=== PATIENT | female | born 1980 | race Hispanic/Latino ===

== ENCOUNTER 2022-08-21 03:02 | Inpatient (IN) | payer OTHER, SELFPAY ==
[2022-08-21] VITALS (17 sets, daily range): BP systolic 99–141; BP diastolic 59–123; PULSE 71–99; RESP 16–18; TEMP 36.1–36.9; O2SAT 98–99; BMI 32.5
--- NOTE | 2022-08-21 03:54 | WPDOBADMIT ---
Obstetrics - Admit Note Admission Note: record reviewed. No pertinent additions to the history and/or any subsequent changes in the physical findings that are not consistent with the expected course of the were found. pt arrived in labor, pt has a hx of 5 vaginal deliveries, last delivery section, pt requesting TOLAC today, discussed risks and benefits during office visits, consent signed. HX GDMA-1 and IUGR, discussed with DR. Meredith Additions to the history and/or subsequent changes in the physical findings follow. None.
[2022-08-21 04:09] LABS: Basophils Percent Auto 0.4 % (0.2-1.2); Eosinophils Percent Auto 0.4 % (0-4.4); Hematocrit 41.3 % (37.0-47.0); Hemoglobin 14.1 g/dL (12.0-15.0); Immature Granulocyte Absolute 0.03 K/mm3 (0.00-0.031); Immature Granulocyte Percent A 0.4 % (0-0.5); Lymphocytes Absolute Auto 1.18 K/mm3 (0.9-3.2); Lymphocytes Percent Auto 14.4 % (18.3-44.2); Mean Corpuscular HGB Conc 34.1 g/dl (32-36); Mean Corpuscular Hemoglobin 31.1 pg (26-34); Mean Corpuscular Volume 91.2 fl (80-100); Mean Platelet Volume 10.3 fl (7.4-10.4); Monocytes Absolute Auto 0.5 K/mm3 (0.1-0.6); Monocytes Percent Auto 5.9 % (2.6-8.5); Neutrophils Absolute Auto 6.4 K/mm3 (1.3-6.7); Neutrophils Percent Auto 78.5 % (45.5-73.1); Platelet Count Result 216 k/mm3 (150-375); Red Blood Count 4.53 M/mm3 (4.2-5.4); Red Cell Distribution Width 12.5 % (11.5-14.5); White Blood Count 8.2 K/mm3 (4.5-10.0)
[2022-08-21 04:13] LABS: Glucose Point of Care 101 mg/dl (65-105)
[2022-08-21] MEDS: OXYTOCIN 30 UNITS/NS 500 ML 30 UNITS/500 ML BAG 999 UNITS IV CONT (04:40)
--- NOTE | 2022-08-21 04:50 | PM.OBPRVD ---
OB - Delivery Note Procedure Delivery date: 08/21/22 Procedure: Vaginal delivery Operation Date: 08/28/22 07:30 <No data on this case meets the specified criteria> Events: Gestational Diabetes and Intrauterine Growth Restriction (IUGR) Delivery monitor: External FHT and External Uterine Route of delivery: Episiotomy description: None Laceration Description: Superficial Specimen: Yes Quantitative Blood Loss (ml): 70 Anesthesia type: None Disposition: Floor [place]yard Baby Date of : 08/21/22 Time of : 04:38 Weeks of gestation at delivery: 38 gender: Male presentation: vertex position: Left Occiput Anterior Placenta delivery description: Spontaneous and Other Cord Vessel Description: 3 Vessels and True Knot score one minute: 8 score five minutes: 9 Narrative: mother and baby skin to skin in stable condition
--- NOTE | 2022-08-21 04:59 | LDADM ---
This patient, Debbie Villafuerte, was admitted to Labor/Delivery/Recovery 102 on 08/21/22 at 03:02. Plans for labor, pain management and were discussed with patient. Patient/family oriented to hospital policies and general routines including ID bracelet, bed and alarms, visiting hours, pain management, procedures, bathroom and other care routines, personal items, smoking policy, room service/diet and guest tray routines, security routines, and visiting hours. Patient/Family are encouraged to report perceived risks to care and to ask questions if they do not understand what they are told or what they should do. See OBIX for further documentation.
--- NOTE | 2022-08-21 07:45 | PC.NURSE ---
Patient transferred to post room #282 via wheel chair. Support person not present at this time. Oriented to unit, room, information board, rooming in, admission packet and security measures. Patient verbalizes understanding. Pt was offered to use the translation device at this time, it was not needed. A Amharic version of the admission packet was given.
[2022-08-21 08:10] LABS: HIV 1/2 Ab P24 Ag Result Negative (Negative)
[2022-08-21 13:48] LABS: Rapid Plasma Reagin Non-Reactive (NonReactive)
--- NOTE | 2022-08-21 14:08 | PC.NURSE ---
[id number] Scientific Writer #[id number] Heather assisted with introductions, then consulted with patient to assess needs related to . 41 Y.O. Mother led the conversation with her?plans to feed?her and the?experience so far. Resources provided for inpatient and outpatient services using a resource guide and mom/baby guide. Mother voiced understanding of information and is willing to have a feeding plan discussion. Mother plans to breastfeed but has put infant to breast twice since delivery and bottle fed most of the time. Pain was denied with the two latches that mother has done. Mother shared that she is getting milk out of the right breast but not the left breast. She was concerned about her milk because she was not able to breastfeed her now two year old because the milk didn't come in . Reviewed milk production and offered to assist mother with pumping for a good milk supply. Mother wants to initiate pumping. Breast pump provided due to ineffective . Instructions given on cleaning, care, usage, that there should be no pain, pumping schedule for milk production, collection, and storage of human milk. Mother is encouraged to record pumping schedule on the feeding sheet. Patient was assessed for correct placement, flange size, to pump for comfort and nipple stretching/stimulation for adequate milk production every 3 hours (8 times in 24 hours) 1-2 times at night if infant is not 2-3 hours. Encouraged mother that if there is no milk pumped out to continue to consistently pump to stimulate milk production. Mother voiced understanding of the education shared along with additional Nepali resource information. Scientific Writer #[id number] assisted with education and information. Reported to the primary RN.
[2022-08-22 05:17] LABS: Hemoglobin 12.4 g/dL (12.0-15.0)
--- NOTE | 2022-08-22 07:23 | P.PNOB_ITS ---
OB - PN: Subj Subjective Date/time seen: 08/22/22 07:23 Patient comments: no complaints and pain well controlled baby status: doing well [place] feeding status: breast and bottle feeding Narrative: would like DC home today. declines circumcision. OB - PN: Obj Data Labs CBC & Chem 7: 08/22/22 04:21 Labs: Laboratory Results - last 24 hr 08/21/22 08/21/22 08/22/22 03:45 03:54 04:21 Hgb 12.4 Hct 37.0 RPR Non-reactive HIV 1&2 Ab/P24 Ag 4thGn Negative OB - PN A/P Plan day: 1 Plan: routine care and discharge home Time Spent With Patient Time: Total time spent is greater than 50% in coordination of care (as documented) at patient's floor/unit and/or counseling patient: Time with patient: less than 15 minutes Exam Narrative: NAD abdomen soft, nontender, fundus firm below the umbilicus Extremities nontender, 1+ edema
--- NOTE | 2022-08-22 07:25 | P.DS_ITS ---
DS: Admitting Diagnosis Discharge Date 08/22/22 Admitting Diagnosis labor, prior CS DS: Discharge Diagnosis Discharge Diagnosis (1) (vaginal after ): Code(s): O34.219 - Maternal care for unspecified type scar from previous delivery Status: Acute OB - DS: Summary Hospital Course Hospital Course: Debbie was admitted in labor at term. She had a prior CS. She proceeded to have an uncomplicated vaginal after and an uncomplicated postp artum course and was discharged home in stable condition on PPD 1. OB Procedures : Ultrasound OB Procedures Intrapartum: OB Procedures: : None Peripartum Data Infant Delivery Method: Natural Vaginal Procedures: Procedures Operation Date: 08/28/22 07:30 <No data on this case meets the specified criteria> complications: none Status at Discharge Functional status at discharge: independent ambulation Time Spent with Patient Time attestation: Total time spent providing and/or coordinating discharge services: Exam Narrative: NAD abdomen soft, appropriately tender Ext non tender, 1+ edema DS: Data Data Completed and Pending Pending studies at discharge: Pending at discharge 08/21/22 04:40 Surgical [PTH] Routine Labs on day of discharge: Labs from last 24 hours 08/22/22 08/21/22 08/21/22 04:21 03:54 03:45 Hgb 12.4 Hct 37.0 RPR Non-reactive HIV 1&2 Ab/P24 Ag 4thGn Negative Discharge Plan Discharge Attending physician on discharge: Leslie Kaur Discharging Clinician: Leslie Kaur Anticipated Discharge Date/Time: 08/22/22 07:24 Patient Disposition: Home, Self-Care Activity: pelvic rest Diet: regular Patient Instructions: Antibiotic Form Patient Language: Danish Stand Alone Forms: General Discharge Information Follow-up/Referrals: Leslie Kaur MD [Physician] - 4 Weeks Discharge Medications: Continued levothyroxine 125 mcg tablet 125 mcg PO DAILY ergocalciferol (vitamin D2) 1,250 mcg (50,000 unit) capsule 1,250 mcg PO WEEKLY PNV cmb#95-ferrous fumarate-FA [] 28 mg iron- 800 mcg tablet 1 tablet PO DAILY Date of admission: 08/21/22 03:02 Primary Care Provider: Fabricio Guadarrama Admitting Provider: Leslie Kaur Attending physician on admission: Leslie Kaur Condition: Stable
[2022-08-22 08:00] VITALS: PULSE 72; RESP 16; O2SAT 100
[2022-08-22 08:05] VITALS: BP 129/82; PULSE 72; RESP 16; TEMP 36.3; O2SAT 100
[2022-08-22] MEDS: DOCUSATE SODIUM 100 MG CAPSULE PO (09:08)
[2022-08-22] MEDS: MULTIVIT/MIN/PREN/FOL AC/IRON TABLET 1 TAB PO (09:09)
== END 2022-08-22 15:30 | disposition home or self-care (01) | DRG 560 ==
LOC: ANHLDR 03:46 → ANHOB2 07:47
PROVIDERS: Advanced Practice Midwife; Admitting Provider Obstetrics & Gynecology; PCP Emergency Medicine; Visit Provider Obstetrics & Gynecology
DX: O24.429 Gestational diabetes mellitus in childbirth, unspecified control (principal); O36.5930 Maternal care for other known or suspected poor fetal growth, third trimester, not applicable or unspecified; O34.211 Maternal care for low transverse scar from previous cesarean delivery; Z37.0 Single live birth; Z3A.38 38 weeks gestation of pregnancy; O69.2XX0 Labor and delivery complicated by other cord entanglement, with compression, not applicable or unspecified; O62.3 Precipitate labor
CPT/HCPCS: 36415; 82948; 84112; 85014; 85018; 85025; 86592; 86703; 86850; 86900; 86901; 88307; A9270; G0432; J2590

== ENCOUNTER 2022-10-05 01:49 | Day surgery (SDC) | payer OTHER, SELFPAY ==
[2022-10-01 10:33] VITALS: BMI 29.3
--- NOTE | 2022-10-01 10:34 | PC.NURSE ---
PRE-OP INSTRUCTIONS, PLEASE READ CAREFULLY Report to the Outpatient Waiting Room, entrance under the green pavilion located off [facility], at time _0600_ on date _10/05/22_. Planned Procedure Time: _0730_. Time changes happen often and if your time is changed the preop area will call you the afternoon before. - You and your visitor will be asked to self-screen and do not enter if you have any COVID symptoms. - Only one visitor is requested with a max of two and NO children visitors are allowed at this time. - The patient visitor may be requested to leave or wait in car when not with patient due to distancing restrictions. - A mask is optional within the hospital. Patients may have clear liquids (water, carbonated beverages, clear teas, apple juice) until 3 hours prior to surgery (0430 AM) with a maximum of 20 ounces. - No food from midnight until time of surgery Take the following medications with a SIP of water the morning of surgery: _LEVOTHYROXINE_ Medications to discontinue per physician _VITAMINS 3 DAYS PRIOR TO SURGERY, Date to take last dose 10/01/22_ Please no make-up, nail angolan, hairspray, perfume, deodorant, or body powder the day of surgery. No jewelry (including any body piercings) or valuables the day of surgery, leave them at home. Please take a shower or bath the night before, or the morning of, surgery with an antibacterial soap. Wear comfortable, loose fitting clothing. - Jewelry must be removed prior to entering the operating room. Rings and piercings that are not removed may be cut off. - The hospital will not accept responsibility for valuables. - Please leave all valuables, including medications, at home the day of surgery. If you are going home after surgery, a licensed cab driver must drive you home. - NO public transportation without another adult if you receive anesthesia. - We recommend that an adult stay with you for 24 hours following discharge. - We also recommend that you do not drive, make important decision, drink alcoholic beverages, or take any drugs that were not prescribed by your health care provider for at least 24 hours after your discharge time. Follow any additional instructions given to you from your surgeon. If you or anyone in your household have experienced Covid symptoms in the past week, please notify your surgeon or the nurse liaison at the phone number below for possible testing. Instructions given to _PATIENT_and asked if any additional questions and then verbalized understanding. Patient advised to call surgeon office or pre surgery nurse liaison [phone] if any additional questions.
[2022-10-05] VITALS (8 sets, daily range): BP systolic 106–142; BP diastolic 41–89; PULSE 72–95; RESP 11–19; TEMP 36.5; O2SAT 100
--- NOTE | 2022-10-05 06:56 | PM.IMHP ---
H&P: HPI History of Present Illness Date/Time: 10/05/22 06:56 Chief Complaint: sterilization, left ovarian cyst Narrative: Debbie is a here for [facility] bilateral salpingectomy for sterilization. IN addition, during her recent she had a 6cm simple left ovarian cyst. She also has hypothyroidism. Review of Systems Review of Systems: All systems reviewed & are unremarkable except as noted in HPI and below [facility] Social History Social History Smoking status: Never smoker Second hand tobacco smoke exposure: No Alcohol intake: never Substance use: never Substance use type: does not use Lack of Transportation: No Lack of Food: Never True Current Housing: I Have Housing Concerned About Future Housing: No Difficulty Paying Gas/Electric Bills: No Difficulty Paying for Meds: No Currently Unemployed: No Education: High School Diploma/GED Difficulty w/ Childcare or Family Care: No Living arrangements: with family Spiritual care concerns: No Meds Home Medications and Allergies Home Medications Medication Instructions Recorded Confirmed Type ergocalciferol (vitamin D2) 1,250 1,250 mcg PO WEEKLY 08/21/22 10/05/22 History mcg (50,000 unit) capsule levothyroxine 125 mcg tablet 125 mcg PO DAILY 08/21/22 10/05/22 History vit no.95-ferrous 1 tablet PO DAILY 08/21/22 10/05/22 History fumarate 28 mg-folic acid 800 mcg tablet () Allergies Allergy/AdvReac Type Severity Reaction Status Date / Time No Known Allergies Allergy Verified 10/05/22 06:35 Vital Signs Vital Signs - 24 hr 10/05/22 06:27 Temperature 97.7 F Pulse Rate 84 Respiratory Rate 16 Blood Pressure 131/74 Pulse Oximetry 100 Oxygen Delivery Room Air Exam Const: General: no acute distress Resp: Effort & Inspection: normal respiratory effort Auscultation: clear to auscultation bilaterally Cardio: Rate: regular rate Rhythm: regular rhythm GI: GI Palp: Yes Soft to palpation Extrem: General: normal to inspection Assessment and Plan Assessment and plan (1) Admission for sterilization: Code(s): Z30.2 - Encounter for sterilization Status: Acute (2) Left ovarian cyst: Code(s): N83.202 - Unspecified ovarian cyst, left side Status: Acute Plan Disucssed risks, benefits, and alternatives to procedure with pt in office with an environmental health sanitarian. Questions answered. Will proceed with [facility] bilateral salpingectomy and possible left ovarian cystectomy or drainage of left ovarian cyst if it is still present. ancef preop.
[2022-10-05] MEDS: LACTATED RINGERS 1,000 ML 30 ML IV CONT ×2 (07:00→09:07)
[2022-10-05] MEDS: ACETAMINOPHEN 500 MG TABLET 1000 MG PO (07:10)
[2022-10-05] MEDS: KETOROLAC 15 MG/ML VIAL (*BKC) IV PUSH (07:12)
--- NOTE | 2022-10-05 07:18 | P.PNAN_ITS ---
Anes - Initial Pre Proc Eval Procedure: Operation Date: 10/05/22 07:30 Proposed Procedures p Laparoscopic Bilateral Salpingectomy, Possible Laparoscopic Left Ovarian Cystectomy - Leslie Kaur MD Date/Time: 10/05/22 07:18 Surgeon: Leslie Kaur MD Pre Op Diagnosis: sterilization, left ovarian cyst Patient Data Age: 41 Gender: F Height: 1.65 m Weight: 78.6 kg Last Vital Signs Temp 36.5 C 10/05/22 06:27 Pulse 84 10/05/22 06:27 Resp 16 10/05/22 06:27 BP 131/74 10/05/22 06:27 Pulse Ox 100 10/05/22 06:27 O2 Del Method Room Air 10/05/22 06:27 Allergies Allergy/AdvReac Type Severity Reaction Status Date / Time No Known Allergies Allergy Verified 10/05/22 06:35 Home Medications Medication Instructions Recorded Confirmed Type ergocalciferol (vitamin D2) 1,250 1,250 mcg PO WEEKLY 08/21/22 10/05/22 History mcg (50,000 unit) capsule levothyroxine 125 mcg tablet 125 mcg PO DAILY 08/21/22 10/05/22 History vit no.95-ferrous 1 tablet PO DAILY 08/21/22 10/05/22 History fumarate 28 mg-folic acid 800 mcg tablet () Patient hx anesthesia problems: none Family hx anesthesia problems: none Results Review: All pre-operative results and documents have been reviewed as part of the pre- operative evaluation. PENDING SALE TO [facility] Past Medical History Medical History (Updated 10/05/22 @ 07:18 by Favio Pollock MD) Hypothyroidism Overweight Social History Social History Smoking status: Never smoker Second hand tobacco smoke exposure: No Alcohol intake: never Substance use: never Substance use type: does not use Lack of Transportation: No Lack of Food: Never True Current Housing: I Have Housing Concerned About Future Housing: No Difficulty Paying Gas/Electric Bills: No Difficulty Paying for Meds: No Currently Unemployed: No Education: High School Diploma/GED Difficulty w/ Childcare or Family Care: No Living arrangements: with family Spiritual care concerns: No Anes - Eval Final PreProcedure Day of Procedure 10/05/22 07:18 Patient weight: overweight Heart: regular rate and rhythm Lungs: clear to auscultation Airway: Mallampati scale class II Neurological: alert and oriented Last oral intake: >/= 8 hours ASA classification: II Emergent: no Anesthetic plan: proceed Anesthesia type and monitoring: general ETT and standard monitoring Results Review: All pre-operative results and documents have been reviewed as part of the pre- operative evaluation. Informed Consent: The patient's anesthetic plan and its attendant risks and benefits were discussed with the patient/family/POA. Questions were solicited and answers provided to the satisfaction of the patient/family/POA.
--- NOTE | 2022-10-05 07:25 | WPDHPUPDATE1 ---
History and Physical Update Update Date/Time: 10/05/22 07:25 History and Physical has been reviewed, including an updated exam of the patient. There are NO changes in the patient's condition. Risks, benefits, and alternatives have been discussed and questions answered. Patient agrees to proceed with procedure.
[2022-10-05] MEDS: ceFAZolin 2 GM/D5W 50 ML 2 GM/50 ML BAG IVPB (07:30)
[2022-10-05] MEDS: BUPIVACAINE/EPINEPHRINE 0.5% 10 ML VIAL INFILTRATE (08:27)
--- NOTE | 2022-10-05 08:54 | W.PM.PROC2 ---
Procedure Note - Detailed Date of Procedure 10/05/22 Pre-op Diagnosis sterilization, left ovarian cyst Post-op Diagnosis Other (no left ovarian cyst) Procedure Performed [facility] [place] sal[place]ectomy Surgeon Leslie Kaur MD Anesthesia General Indications desires permanent sterilization Findings normal tubes and ovaries bilaterally. no left ovarian cyst seen. Description of Procedure The patient was taken to the OR and placed in dorthal lithotomy in [facility]. She received general anesthesia. A speculum was placed and the cervix grasped with a single tooth tenaculum and an acorn uterine manipulator placed easily. A hernandez catheter had previously been placed. She had received preoperative antibiotics. A 5mm subumbilical skin incision was made and using direct visualization, the trocar was inserted intraperitoneally. The abdomen was insufflated and the pelvis inspected with the above findings. Bilateral 5mm incisions were made and trocars were placed under direct visualization. The right tube was grasped and elevated and using the Ligasure device, the tube was sequentially cauterized and ligated and removed through the trocar and sent to pathology. Similarly, on the left, the tube was removed using the Ligasure device. Hemostasis was noted from both surgical sites, but blood was accumulating in the cul de sac. It was suctioned out and we were able to see that the bleeding was coming from the posterior uterus. The uterus was anteverted as much as possible. It was boggy feeling. A bleeding injury in the serosa was noted, likely from elevating the uterus with a blunt grasper. It was cauterized with the ligasure and hemostasis was noted. The upper abdomen was inspected and noted to be normal. The trocars were removed and the Co2 was removed from the abdomen. The skin was closed with 4-0 vicryl and steri strips. The patient tolerated the procedure well and was taken to the recovery room in stable condition. Estimated Blood Loss 150 Drains No Packing No Pathology Yes Complications No immediate complications Condition Stable Disposition Same day
== END 2022-10-05 10:50 | disposition home or self-care (01) ==
PROVIDERS: PCP Emergency Medicine; Visit Provider Obstetrics & Gynecology
PROC: (CPT 49320; principal; 2022-10-05 07:30)
DX: Z30.2 Encounter for sterilization (principal); N83.202 Unspecified ovarian cyst, left side; N83.8 Other noninflammatory disorders of ovary, fallopian tube and broad ligament
CPT/HCPCS: 58661; 88302; A9270; J0690; J1100; J1885; J2250; J2405; J2704; J2710; J3010; J7030; J7120

== ENCOUNTER 2023-04-16 14:44 | Emergency (ER) | payer OTHER, SELFPAY ==
[2023-04-16 14:48] VITALS: BP 145/79; PULSE 83; RESP 16; TEMP 37; O2SAT 100
[2023-04-16 15:20] LABS: Basophils Percent Auto 0.6 % (0.2-1.2); Eosinophils Absolute Auto 0.2 K/mm3 (0-0.3); Eosinophils Percent Auto 4.2 % (0-4.4); Hematocrit 39.3 % (37.0-47.0); Immature Granulocyte Absolute 0.01 K/mm3 (0.00-0.031); Immature Granulocyte Percent A 0.2 % (0-0.5); Lymphocytes Percent Auto 37.7 % (18.3-44.2); Mean Corpuscular HGB Conc 33.1 g/dl (32-36); Mean Corpuscular Hemoglobin 30.1 pg (26-34); Mean Platelet Volume 9.4 fl (7.4-10.4); Monocytes Absolute Auto 0.4 K/mm3 (0.1-0.6); Monocytes Percent Auto 8.3 % (2.6-8.5); Neutrophils Absolute Auto 2.5 K/mm3 (1.3-6.7); Platelet Count Result 309 k/mm3 (150-375); Red Blood Count 4.32 M/mm3 (4.2-5.4); Red Cell Distribution Width 11.6 % (11.5-14.5)
[2023-04-16 16:30] LABS: INR 0.9; Prothrombin Time 12.3 Seconds (11.1-14.7)
[2023-04-16 16:31] LABS: Partial Thromboplastin Time 26.3 SECONDS (22.3-36.8)
--- NOTE | 2023-04-16 16:56 | ED.FEMALEGU ---
HPI - Female Genitourinary General Chief complaint: Vaginal Bleeding Stated complaint: vaginal bleeding Time Seen by Provider: 04/16/23 15:37 History of Present Illness HPI Narrative: Patient is a 42-year-old female presenting with vaginal bleeding. History was obtained via car stereo installer. Patient states that she had a procedure done in September to prevent her from having further children. Per chart review, it appears she had a bilateral salpingectomy but she continues to have her ovaries. States that since that time she has been having a lot of vaginal bleeding. States that she will bleed heavily for 15 days/month. States that she sometimes has to put diapers down in her bed because she leaks through. She has not followed up with her LICENSED NURSING ASSISTANT since her last postop check. She denies abdominal pain, nausea or vomiting, diarrhea, chest pain, shortness of breath, syncope, leg swelling. Related Data Home Medications Medication Instructions Recorded Confirmed ergocalciferol (vitamin D2) 1,250 1,250 mcg PO WEEKLY 08/21/22 10/05/22 mcg (50,000 unit) capsule levothyroxine 125 mcg tablet 125 mcg PO DAILY 08/21/22 10/05/22 vit no.95-ferrous 1 tablet PO DAILY 08/21/22 10/05/22 fumarate 28 mg-folic acid 800 mcg tablet () Allergies Allergy/AdvReac Type Severity Reaction Status Date / Time No Known Allergies Allergy Verified 04/16/23 15:07 Review of Systems Review of Systems: All systems reviewed & are unremarkable except as noted in HPI and below PMFSH Past Medical History Medical History Hypothyroidism Overweight Social History Social History Smoking status: Never smoker Second hand tobacco smoke exposure: No Alcohol intake: never Substance use: never Substance use type: does not use Lack of Transportation: No Lack of Food: Never True Current Housing: I Have Housing Concerned About Future Housing: No Difficulty Paying Gas/Electric Bills: No Difficulty Paying for Meds: No Currently Unemployed: No Education: High School Diploma/GED Difficulty w/ Childcare or Family Care: No Living arrangements: with family Spiritual care concerns: No Exam Narrative: GENERAL: Well-appearing, well-nourished, and in no acute distress. HEAD: Normocephalic, atraumatic. EYES: PERRLA and EOMI. ENT: Nares clear, no rhinorrhea or epistaxis. Mucous membranes moist. NECK: Supple. CHEST: No respiratory distress. HEART: Regular rate and rhythm. ABDOMEN: Soft, nontender, nondistended EXTREMITIES: Normal range of motion. No edema. SKIN: Warm, dry, no rash. NEURO: No focal deficits. Alert and oriented x3. PSYCH: Normal mood and affect. Course Vital Signs Vital signs: Vital Signs Temperature 98.6 F 04/16/23 14:48 Pulse Rate 83 04/16/23 14:48 Respiratory Rate 16 04/16/23 14:48 Blood Pressure 145/79 H 04/16/23 14:48 Pulse Oximetry 100 04/16/23 14:48 Oxygen Delivery Room Air 04/16/23 14:48 Temperature 98.6 F 04/16/23 14:48 Pulse Rate 87 04/16/23 17:07 Respiratory Rate 18 04/16/23 17:07 Blood Pressure 122/86 04/16/23 17:07 Pulse Oximetry 98 04/16/23 17:07 Oxygen Delivery Room Air 04/16/23 14:48 MDM - Female Genitourinary MDM Narrative Medical decision making narrative: Patient is a 42-year-old female presenting with months of heavy vaginal bleeding. Vitals are within normal limits. Patient is well-appearing and in no acute distress. Exam is remarkable for the above. Blood work with a hemoglobin of 13. Coags are unremarkable. Urine is negative. Discussed with the patient the reassuring work-up. She is asking for iron pills which will be prescribed. Advised that she follow-up closely with her LICENSED NURSING ASSISTANT. Appropriate return precautions given. Patient voiced understanding and is agreeable with plan. Disch
[2023-04-16 17:00] LABS: Pregnancy On Board Control Positive; Urine Pregnancy Test Negative
[2023-04-16 17:07] VITALS: BP 122/86; PULSE 87; RESP 18; O2SAT 98
== END 2023-04-16 17:08 | disposition home or self-care (01) ==
PROVIDERS: Emergency Medicine; Emergency Provider Emergency Medicine; PCP Emergency Medicine
DX: N93.8 Other specified abnormal uterine and vaginal bleeding (principal); E03.9 Hypothyroidism, unspecified; E66.3 Overweight; Z68.31 Body mass index [BMI] 31.0-31.9, adult; Z90.79 Acquired absence of other genital organ(s)
CPT/HCPCS: 36415; 81025; 85025; 85610; 85730; 99283

== ENCOUNTER 2023-07-04 15:54 | Outpatient (CLI) | payer OTHER, SELFPAY ==
--- NOTE | ~2023-07-04 | XR_ITS ---
EXAMINATION: XR chest 2V DATE: 07/04/2023 16:25 INDICATION: Cough. TECHNIQUE: Frontal and lateral views of the chest were obtained. COMPARISON: None. FINDINGS: There is no pneumonia, pleural effusion, or pneumothorax. The heart size is normal. IMPRESSION: 1. No acute cardiopulmonary disease. Reviewed, dictated and finalized at location E.
[2023-07-04 17:52] LABS: SARS-CoV-2 RNA PCR Positive (Negative)
== END 2023-07-04 15:55 | disposition home or self-care (01) ==
PROVIDERS: PCP Emergency Medicine; Visit Provider Emergency Medicine
DX: R05.9 Cough, unspecified (principal); R06.02 Shortness of breath; U07.1 COVID-19
CPT/HCPCS: 71046; 87635

== ENCOUNTER 2023-07-16 13:17 | Outpatient (CLI) | payer OTHER, SELFPAY ==
--- NOTE | ~2023-07-16 | US_ITS ---
Thyroid ultrasound. Clinical History: Hypothyroidism Findings: Real-time sonography of the thyroid gland was performed. The right lobe measures 2.9 x 1.0 x 0.9 cm. The left lobe measures 3.0 x 0.8 x 0.8 cm. The isthmus is 2 mm in AP diameter. Thyroid parenchyma is heterogeneous, without discrete nodule. Impression: Small, heterogeneous thyroid gland, without discrete nodule. Correlate with thyroid function tests, a nd/or uptake scan, as indicated. Reviewed, dictated and finalized at location M. Impression: Small, heterogeneous thyroid gland, without discrete nodule. Correlate with thy roid function tests, and/or uptake scan, as indicated.
[2023-07-16 14:51] LABS: SARS-CoV-2 RNA PCR Negative (Negative)
== END 2023-07-16 13:18 | disposition home or self-care (01) ==
PROVIDERS: PCP Emergency Medicine; Visit Provider Emergency Medicine
DX: E03.9 Hypothyroidism, unspecified (principal); Z20.822 Contact with and (suspected) exposure to COVID-19
CPT/HCPCS: 76536; 87635

== ENCOUNTER 2023-11-24 05:39 | Emergency (ER) | payer OTHER, SELFPAY ==
--- NOTE | ~2023-11-24 | CT_ITS ---
EXAMINATION: CT abdomen pelvis w con DATE: 11/24/2023 06:54 INDICATION: Abdominal pain TECHNIQUE: Computed tomography (CT) of the abdomen and pelvis was performed with 100 cc Omnipaque 350 intravenous contrast. The dose-length product was 529.50 mGy-cm. Automated exposure control and iter ative reconstruction technique were employed. COMPARISON: None. FINDINGS: There are infiltrates of the right lower lobe with mild bronchiectasis, consistent with pne umonia. Heart size normal. No significant pleural or pericardial effusion. There is focal fatty infil tration of the liver at the falciform ligament. The spleen, pancreas, adrenal glands and kidneys are unremarkable. There are cholecystectomy clips. Status post cholecystectomy with expected prominence o f the bile ducts. Nonobstructive bowel gas pattern. Mildly enlarged uterus with thickened endometrium . No free fluid. No significant vascular abnormality. No acute osseous abnormality. IMPRESSION: 1. Right lower lobe pneumonia. 2: Enlarged uterus with endometrial thickening. Consider correlation with pelvic ultrasound on a none mergent basis. Reviewed, dictated and finalized at location A. OR ACCOUNTING MANAGER IMPRESSION: 1. Right lower lobe pneumonia. 2: Enlarged uterus with endometrial thickening. Consider correlation with pelvi c ultrasound on a nonemergent basis.
[2023-11-24 05:40] VITALS: BP 139/66; PULSE 76; RESP 16; TEMP 36.2; O2SAT 100
--- NOTE | 2023-11-24 06:03 | ED.GENADULT ---
HPI - General Adult General Chief complaint: Abdominal Pain Stated complaint: epigastric/abd pain Time Seen by Provider: 11/24/23 05:56 History of Present Illness HPI narrative: Patient is a 43-year-old female who presents emergency department with chief complaint of abdominal pain. The patient reports that for the last 4 weeks she has been having epigastric pain the patient talked to her primary care provider who told her that she could have an issue with her pancreas and patient today decided to come to the emergency department. The patient reports the pain is in the epigastric region reports radiates to her back reports not improved by anything patient denies nausea vomiting or diarrhea. Related Data Home Medications Medication Instructions Recorded Confirmed ergocalciferol (vitamin D2) 1,250 1,250 mcg PO WEEKLY 08/21/22 10/05/22 mcg (50,000 unit) capsule levothyroxine 125 mcg tablet 125 mcg PO DAILY 08/21/22 10/05/22 vit no.95-ferrous 1 tablet PO DAILY 08/21/22 10/05/22 fumarate 28 mg-folic acid 800 mcg tablet () Allergies Allergy/AdvReac Type Severity Reaction Status Date / Time No Known Allergies Allergy Verified 11/24/23 06:04 Review of Systems Review of Systems: A 10 system review of systems was completed on the patient and is negative except for what is stated in the HPI. Nursing and ancillary documentation was reviewed. PMFSH Past Medical History Medical History Hypothyroidism Overweight Social History Social History Smoking status: Never smoker Second hand tobacco smoke exposure: No Alcohol intake: never Substance use: never Substance use type: does not use Lack of Transportation: No Lack of Food: Never True Current Housing: I Have Housing Concerned About Future Housing: No Difficulty Paying Gas/Electric Bills: No Difficulty Paying for Meds: No Currently Unemployed: No Education: High School Diploma/GED Difficulty w/ Childcare or Family Care: No Living arrangements: with family Spiritual care concerns: No Exam Narrative: GENERAL: Well-appearing, well-nourished, and in no acute distress. HEAD: Normocephalic, atraumatic. EYES: PERRLA and EOMI. ENT: Nares clear, no rhinorrhea or epistaxis. Mucous membranes moist. NECK: Supple. CHEST: Clear to auscultation. No respiratory distress. HEART: Regular rate and rhythm. No murmur heard. Normal peripheral pulses. ABDOMEN: Soft, tenderness to palpation in the epigastric region, nondistended, normal active bowel sounds. EXTREMITIES: Normal range of motion. No edema. SKIN: Warm, dry, no rash. NEURO: No focal deficits. Alert and oriented x3. PSYCH: Normal mood and affect. Course Vital Signs Vital signs: Vital Signs Temperature 36.2 C L 11/24/23 05:40 Pulse Rate 76 11/24/23 05:40 Respiratory Rate 16 11/24/23 05:40 Blood Pressure 139/66 11/24/23 05:40 Pulse Oximetry 100 11/24/23 05:40 Oxygen Delivery Room Air 11/24/23 05:40 Temperature 36.2 C L 11/24/23 05:40 Pulse Rate 82 11/24/23 06:14 Respiratory Rate 17 11/24/23 06:14 Blood Pressure 125/89 11/24/23 06:14 Pulse Oximetry 100 11/24/23 06:14 Oxygen Delivery Room Air 11/24/23 05:40 Medical Decision Making MDM Narrative Medical decision making narrative: differential diagnosis includes pancreatitis, colitis, gastroenteritis, gastritis, cholelithiasis, laboratory studies were obtained on the patient showed a normal CBC normal CMP electrolytes are within normal limits urinalysis was negative CT scan of the abdomen pelvis showed no acute intra-abdominal pathology but did show evidence of a right lower lobe pneumonia. The patient be started on cefdinir and Zithromax and patient should follow-up with her primary care provider Vital Signs Vital Signs:
[2023-11-24] MEDS: SODIUM CHLORIDE 0.9% IV 1,000 ML 999 ML IV CONT (06:09)
[2023-11-24] MEDS: MORPHINE SULFATE (*CRX) 4 MG/ML INJ IV PUSH (06:10)
[2023-11-24] MEDS: ONDANSETRON INJ 4 MG/2 ML VIAL IV PUSH (06:10)
[2023-11-24 06:14] VITALS: BP 125/89; PULSE 82; RESP 17; O2SAT 100
[2023-11-24 06:14] LABS: Basophils Absolute Auto 0.1 K/mm3 (0.0-0.1); Eosinophils Absolute Auto 0.2 K/mm3 (0-0.3); Eosinophils Percent Auto 3.3 % (0-4.4); Hematocrit 37.4 % (37.0-47.0); Immature Granulocyte Absolute 0.01 K/mm3 (0.00-0.031); Immature Granulocyte Percent A 0.2 % (0-0.5); Lymphocytes Absolute Auto 1.91 K/mm3 (0.9-3.2); Mean Corpuscular HGB Conc 29.4 g/dl (32-36); Mean Corpuscular Hemoglobin 23.3 pg (26-34); Mean Corpuscular Volume 79.2 fl (80-100); Mean Platelet Volume 9.4 fl (7.4-10.4); Monocytes Absolute Auto 0.5 K/mm3 (0.1-0.6); Monocytes Percent Auto 10.9 % (2.6-8.5); Neutrophils Absolute Auto 2.1 K/mm3 (1.3-6.7); Neutrophils Percent Auto 44.6 % (45.5-73.1); Platelet Count Result 307 k/mm3 (150-375); Red Blood Count 4.72 M/mm3 (4.2-5.4); Red Cell Distribution Width 16.4 % (11.5-14.5); White Blood Count 4.8 K/mm3 (4.5-10.0)
[2023-11-24 06:22] LABS: Appearance Urine Clear (Clear); Bilirubin Urine Negative (Negative); Blood Urine Negative (Negative); Color Urine Yellow (Yellow); Glucose Urine UA Negative (Negative); Ketones Urine Negative (Negative); Leukocyte Esterase Ur Negative LEU/UL (Negative); Nitrate Urine Negative (Negative); Protein Urine Negative (Negative); Specific Grav Ur 1.021 (1.001-1.035); Urobilinogen Urine 0.2 mg/dL (<2.0); pH Urine 5.5 (5.0-9.0)
[2023-11-24 06:23] LABS: Alanine Aminotransferase 21 U/L (6-35); Albumin Level 4.5 g/dL (3.5-5.1); Alkaline Phosphatase 69 U/L (38-126); Anion Gap 9 mmol/L (8-16); Aspartate Amino Transferase 26 U/L (14-36); Bilirubin,Total 0.4 mg/dL (0.2-1.3); Blood Urea Nitrogen 13 mg/dL (7-17); Carbon Dioxide 24 mmol/L (22-30); Chloride 107 mmol/L (98-107); Estimated CRCL calculation 92 ml/min; Estimated Glomerular Filt Rate > 60; Glucose 103 mg/dL (65-110); Lipase 167 U/L (23-300); Potassium 3.5 mmol/L (3.4-5.0); Sodium 140 mmol/L (137-145)
[2023-11-24 06:24] LABS: Add Urine Microscopic? NO
[2023-11-24 07:24] VITALS: BP 141/86; PULSE 92; RESP 18; O2SAT 100
== END 2023-11-24 07:26 | disposition home or self-care (01) ==
PROVIDERS: Emergency Provider Emergency Medicine; PCP Emergency Medicine
DX: J18.9 Pneumonia, unspecified organism (principal); E03.9 Hypothyroidism, unspecified; E66.3 Overweight; Z68.31 Body mass index [BMI] 31.0-31.9, adult
CPT/HCPCS: 36415; 74177; 80053; 81003; 81025; 83690; 85025; 96361; 96374; 96375; 99284; J2270; J2405; J7030; Q9967

== ENCOUNTER 2023-12-24 08:26 | Outpatient (CLI) | payer OTHER, SELFPAY ==
--- NOTE | ~2023-12-24 | XR_ITS ---
EXAMINATION: XR chest 2V DATE: 12/24/2023 08:43 INDICATION: Recent pneumonia, cough TECHNIQUE: PA and lateral views of the chest are obtained. COMPARISON: 07/04/2023 FINDINGS: The lungs are free of acute opacities. No pleural effusion or pneumothorax. The cardiomedia stinal silhouette is normal. There is mild thoracic spondylosis. Cholecystectomy clips are noted. IMPRESSION: 1. No acute cardiopulmonary abnormality. Reviewed, dictated and finalized at location L. ICAL QUALITY ASSURANCE SPECIALIST
== END 2023-12-24 08:27 | disposition home or self-care (01) ==
PROVIDERS: PCP Emergency Medicine; Visit Provider Emergency Medicine
DX: R05.9 Cough, unspecified (principal); Z87.01 Personal history of pneumonia (recurrent)
CPT/HCPCS: 71046

== ENCOUNTER 2024-01-13 08:13 | Outpatient (CLI) | payer OTHER, SELFPAY ==
--- NOTE | ~2024-01-13 | US_ITS ---
Limited Abdominal Sonogram: Real-time sonographic imaging of the right upper quadrant was performed. Clinical History: Abdominal pain Findings: The liver appears mildly echogenic, with no evidence of mass lesion or bile duct dilatatio n. Main portal vein demonstrates normal direction of flow. The gallbladder is absent, compatible prio r cholecystectomy. The common bile duct measures 3 mm. The visualized pancreas, aorta, and IVC are u nremarkable. Impression: Status post cholecystectomy. Diffuse fatty infiltration of liver. Reviewed, dictated and finalized at location M. Impression: Status post cholecystectomy. Diffuse fatty infiltration of liver.
--- NOTE | ~2024-01-13 | US_ITS ---
Pelvic ultrasound. Clinical History: Enlarged uterus Technique: Realtime transabdominal and transvaginal scanning of the pelvis was performed. Color flow Doppler and Doppler spectral analysis were performed. Findings: The uterus is anteverted, and measures 9.3 x 6.0 x 6.7 cm. The endometrial stripe has a th ickness of 13 mm. No focal mass is identified. The right ovary measures 3.7 x 1.5 x 2.8 cm. No significant right ovarian or adnexal mass is seen. The left ovary measures 3.6 x 1.7 x 2.8 cm. No significant left ovarian or adnexal mass is seen. There is no evidence of free fluid in the cul de sac. Impression: No significant abnormality seen. Reviewed, dictated and finalized at [facility]. Impression: No significant abnormality seen.
== END 2024-01-13 08:14 | disposition home or self-care (01) ==
LOC: ANHIMG 08:17
PROVIDERS: PCP Emergency Medicine; Visit Provider Emergency Medicine
DX: R10.9 Unspecified abdominal pain (principal); Z90.49 Acquired absence of other specified parts of digestive tract; K76.0 Fatty (change of) liver, not elsewhere classified
CPT/HCPCS: 76705; 76856

== ENCOUNTER 2024-08-25 17:43 | Emergency (ER) | payer OTHER, SELFPAY ==
--- NOTE | ~2024-08-25 | XR_ITS ---
EXAMINATION: XR chest 2V Exam Date/Time: 08/25/2024 20:38 CDT HISTORY: wheezing, cough, chest pain, BODY ACHES FOR 3 DAYS Comparison: 12/24/2023. RESULT: Lines, tubes, and devices: Cholecystectomy clips. Lungs and pleura: Streaky and subsegmental bibasilar opacities, more pronounced in the right lower l seun. Cardiomediastinal silhouette: Stable. Other: No acute osseous or upper abdominal finding. IMPRESSION: Subsegmental bibasilar opacities may represent atelectasis or consolidation. Reviewed, dictated and finalized at location K.
[2024-08-25 17:46] VITALS: BP 130/84; PULSE 112; RESP 20; TEMP 37.2; O2SAT 99
[2024-08-25 18:38] LABS: Influenza A QL RT-PCR Negative (Negative); Influenza B QL RT-PCR Negative (Negative); RSV RNA, RT-PCR Negative (Negative); SARS-CoV-2 RNA PCR Negative (Negative)
[2024-08-25 18:51] VITALS: BP 133/89; PULSE 117; RESP 15; O2SAT 100
--- NOTE | 2024-08-25 18:53 | ECG_ITS ---
Test Date: 2024-08-25 18:57:15 Measurements Intervals [place] Rate: 124 P: 48 SC: 152 QRS: 66 QRSD: 86 T: 38 QT: 403 QTc: 579 Interpretive Statements SINUS TACHYCARDIA NONSPECIFIC T-WAVE ABNORMALITY No previous ECG available for comparison Electronically Signed On 08-26-2024 14:27:21 CDT by Rebekah Garcia M.D.
--- NOTE | 2024-08-25 18:58 | ED_ITS ---
HPI - URI/Sore Throat General Chief Complaint: Upper Respiratory Infection <Tammy Lopes APRN - Last Filed: 08/25/24 19:35> Stated Complaint: cough, body aches <Tammy Lopes APRN - Last Filed: 08/25/24 19:35> Time Seen by Provider: 08/25/24 18:50 <Tammy Lopes APRN - Last Filed: 08/25/24 19:35> Focused HPI: Patient is a 43 year old female who presents to the ER with an ongoing cough, body aches, and congestion. She reports she went to her primary care provider earlier today who advised her to come to the ER. Patient reports she has a history of pneumonia. She endorses a slight sore throat. Patient denies any history of asthma or other breathing issues. She denies any back pain, abdominal pain, urinary symptoms. GENERAL: Well-appearing, well-nourished, and in no acute distress. HEAD: Normocephalic, atraumatic. CHEST: Wheezing to bilateral upper lobes. ?No respiratory distress. HEART: Regular rate and rhythm.? NEURO: ?Alert and oriented x3. Patient screened in triage and initial orders placed.? ?Additional care and disposition to be based upon?diagnostic testing and treatment. <Tammy Lopes APRN - Last Filed: 08/25/24 19:35> Related Data Home Medications: Home Medications Medication Instructions Recorded Confirmed ergocalciferol (vitamin D2) 1,250 1,250 mcg PO WEEKLY 08/21/22 10/05/22 mcg (50,000 unit) capsule levothyroxine 125 mcg tablet 125 mcg PO DAILY 08/21/22 10/05/22 vit no.95-ferrous 1 tablet PO DAILY 08/21/22 10/05/22 fumarate 28 mg-folic acid 800 mcg tablet () <Tammy Lopes APRN - Last Filed: 08/25/24 19:35> Allergies/Adverse Reactions: Allergies Allergy/AdvReac Type Severity Reaction Status Date / Time No Known Allergies Allergy Verified 08/25/24 17:48 <Tammy Lopes APRN - Last Filed: 08/25/24 19:35> Review of Systems Review of Systems: CONSTITUTIONAL: Denies fever ENT: Reports congestion, sore throat CARDIOVASCULAR: Denies chest pain, or edema. RESPIRATORY: Reports cough and dyspnea. <Rakel Galeas PA-C - Last Filed: 08/25/24 23:38> All systems reviewed & are unremarkable except as noted in HPI and below <Rakel Galeas PA-C - Last Filed: 08/25/24 23:38> PMFSH Past Medical History Medical History: Medical History (Updated 08/25/24 @ 23:32 by Rakel Galeas PA-C) Hypothyroidism Overweight <Tammy Lopes APRN - Last Filed: 08/25/24 19:35> Social History Social History: Social History (System 12/24/23 @ 14:03 by Gaby Abbott) Smoking status: Never smoker Second hand tobacco smoke exposure: No Alcohol intake: never Substance use: never Substance use type: does not use Lack of Transportation: No Lack of Food: Never True Current Housing: I Have Housing Concerned About Future Housing: No Difficulty Paying Gas/Electric Bills: No Difficulty Paying for Meds: No Currently Unemployed: No Education: High School Diploma/GED Difficulty w/ Childcare or Family Care: No Living arrangements: with family Spiritual care concerns: No <Tammy Lopes, LILIA - Last Filed: 08/25/24 19:35> Exam Narrative: GENERAL: Well-appearing, well-nourished, and in no acute distress. HEAD: Normocephalic, atraumatic. EYES: EOMI. ENT: Nares clear, no rhinorrhea or epistaxis. Mucous membranes moist. Oropharynx without tonsillar hypertrophy exudate or other lesions. Bilateral TMs pearly arguelles non-bulging NECK: Supple. No adenopathy or masses. CHEST: Clear to auscultation. No respiratory distress. No wheezes rales or rhonchi HEART: Regular rate and rhythm. No murmur heard. Normal peripheral pulses. EXTREMITIES: Normal range of motion. No edema. SKIN: Warm, dry, no rash. NEURO: No focal deficits. Alert and oriented x3. PSYCH: Normal mood and affect <Rakel Galeas PA-C - Last Filed: 08/25/24 23:38> Course Course Emergency Course: Patient updated on her workup and agrees with plan of care <Rakel Galeas PA-C - Last Filed: 08/25/24 23:38> Vital Signs Vital signs: Vital Signs Temperature 99.0 F 08/25/24 17:46 Pulse Rate 112 H 08/25/24 17:46 Respiratory Rate 20 08/25/24 17:46 Blood Pressure 130/84 08/25/24 17:46 Pulse Oximetry 99 08/25/24 17:46 Oxygen Delivery Room Air 08/25/24 17:46 Temperature 99.0 F 08/25/24 17:46 Pulse Rate 96 08/25/24 23:15 Respiratory Rate 18 08/25/24 23:15 Blood Pressure 119/74 08/25/24 23:15 Pulse Oximetry 100 08/25/24 23:15 Oxygen Delivery Room Air 08/25/24 20:34 <Tammy Lopes APRN - Last Filed: 08/25/24 19:35> Vital Signs Temperature 99.0 F 08/25/24 17:46 Pulse Rate 112 H 08/25/24 17:46 Respiratory Rate 20 08/25/24 17:46 Blood Pressure 130/84 08/25/24 17:46 Pulse Oximetry 99 08/25/24 17:46 Oxygen Delivery Room Air 08/25/24 17:46 Temperature 99.0 F 08/25/24 17:46 Pulse Rate 96 08/25/24 23:15 Respiratory Rate 18 08/25/24 23:15 Blood Pressure 119/74 08/25/24 23:15 Pulse Oximetry 100 08/25/24 23:15 Oxygen Delivery Room Air 08/25/24 20:34 <Rakel Galeas PA-C - Last Filed: 08/25/24 23:38> MDM - URI/Sore Throat MDM Narrative Medical decision making narrative: Patient presents to the emergency department for cold symptoms present over the last couple of days. She is afebrile and nontoxic appearing. Tachycardic upon arrival, this normalized with IV fluids. CBC without concerning findings. Metabolic panel with mild transaminitis. Urine without e vidence of infection. Influenza, RSV and COVID screens are negative. Chest x- ray shows possible pneumonia. Patient updated on her workup and agrees with plan of care. Will be started on oral antibiotics and instructed to follow up with primary provider. She was given warnings to return to the ER <Rakel Galeas PA-C - Last Filed: 08/25/24 23:38> Differential Diagnosis Differential diagnosis: Likely upper respiratory infection, sinusitis, viral infection, bronchitis, influenza, pharyngitis and other (Pneumonia) <Rakel Galeas PA-C - Last Filed: 08/25/24 23:38> Lab Data Attestation: I reviewed the patient's lab results. <Rakel Galeas PA-C - Last Filed: 08/25/24 23:38> Result diagrams: 08/25/24 19:19 08/25/24 19:19 <Tammy Lopes APRN - Last Filed: 08/25/24 19:35> Labs: Lab Results 08/25/24 08/25/24 08/25/24 Range/Units 17:51 19:19 20:13 WBC 6.0 (4.5-10.0) K/mm3 RBC 4.66 (4.2-5.4) M/mm3 Hgb 14.3 D (12.0-15.0) g/dL Hct 41.7 (37.0-47.0) % MCV 89.5 (80-100) fl MCH 30.7 (26-34) pg MCHC 34.3 (32-36) g/dl RDW 12.2 (11.5-14.5) % Plt Count 299 (150-375) k/mm3 MPV 9.8 (7.4-10.4) fl Immature Gran % (Auto) 0.2 (0-0.5) % Neut % (Auto) 65.8 (45.5-73.1) % Lymph % (Auto) 23.1 (18.3-44.2) % [place] % (Auto) 9.4 H (2.6-8.5) % Eos % (Auto) 0.8 (0-4.4) % Baso % (Auto) 0.7 (0.2-1.2) % Lymph # (Auto) 1.38 (0.9-3.2) K/mm3 [place] # (Auto) 0.6 (0.1-0.6) K/mm3 Eos # (Auto) 0.1 (0-0.3) K/mm3 Baso # (Auto) 0.0 (0.0-0.1) K/mm3 Abs Immat Gran (auto) 0.01 (0.00-0.031) K/mm3 Absolute Neuts (auto) 3.9 (1.3-6.7) K/mm3 Absolute Nucleated RBC 0.000 (0.0-0.012) K/mm3 Nucleated RBC % 0.0 (0.0-0.2) % PT 13.9 (11.1-14.7) Seconds INR 1.0 APTT 26.8 (22.3-36.8) Seconds D-Dimer < 0.27 (<0.48) ug/mL Sodium 139 (137-145) mmol/L Potassium 4.0 (3.4-5.0) mmol/L Chloride 100 (98-107) mmol/L Carbon Dioxide 27 (22-30) mmol/L Anion Gap 12 (4-12) mmol/L BUN 9 (7-17) mg/dL Creatinine 0.70 (0.7-1.0) mg/dL Estim Creat Clear Calc 94 ml/min Estimated GFR > 60 (59 - ) Glucose 97 (65-110) mg/dL Lactic Acid 1.4 (0.7-2.0) mmol/L Calcium 9.6 (8.4-10.2) mg/dL Total Bilirubin 0.6 (0.2-1.3) mg/dL AST 43 H (14-36) U/L ALT 57 H (6-35) U/L Alkaline Phosphatase 82 (38-126) U/L Troponin I < 0.012 (0.000-0.034) ng/mL C-Reactive Protein 1.5 H (<1.0) mg/dL Total Protein 9.0 H (6.3-8.2) g/dL Albumin 4.6 (3.5-5.1) g/dL Urine Color Yellow (Yellow) Urine Appearance Clear (Clear) Urine pH 6.5 (5.0-9.0) Ur Specific [place] 1.010 (1.001-1.035) Urine Protein Negative (Negative) mg/dL Urine Glucose (UA) Negative (Negative) mg/dL Urine Ketones Negative (Negative) mg/dL Ur Blood (Man) Negative (Negative) Urine Nitrate Negative (Negative) Urine Bilirubin Negative (Negative) Urine Urobilinogen 0.2 (<2.0) mg/dL Leukocyte Esterase Rfl Negative (Negative) URBAN/UL POC Urine HCG, Qual Negative (Negative) Influenza A (RT-PCR) Negative (Negative) Influenza B (RT-PCR) Negative (Negative) RSV (RT-PCR) Negative (Negative) SARS-CoV-2 RNA (RT-PCR) Negative (Negative) Group A Strep (PCR) Not detected (Negative) <Tammy Lopes, SCREENING NURSE - Last Filed: 08/25/24 19:35> Lab Results 08/25/24 08/25/24 08/25/24 Range/Units 17:51 19:19 20:13 WBC 6.0 (4.5-10.0) K/mm3 RBC 4.66 (4.2-5.4) M/mm3 Hgb 14.3 D (12.0-15.0) g/dL Hct 41.7 (37.0-47.0) % MCV 89.5 (80-100) fl MCH 30.7 (26-34) pg MCHC 34.3 (32-36) g/dl RDW 12.2 (11.5-14.5) % Plt Count 299 (150-375) k/mm3 MPV 9.8 (7.4-10.4) fl Immature Gran % (Auto) 0.2 (0-0.5) % Neut % (Auto) 65.8 (45.5-73.1) % Lymph % (Auto) 23.1 (18.3-44.2) % [place] % (Auto) 9.4 H (2.6-8.5) % Eos % (Auto) 0.8 (0-4.4) % Baso % (Auto) 0.7 (0.2-1.2) % Lymph # (Auto) 1.38 (0.9-3.2) K/mm3 [place] # (Auto) 0.6 (0.1-0.6) K/mm3 Eos # (Auto) 0.1 (0-0.3) K/mm3 Baso # (Auto) 0.0 (0.0-0.1) K/mm3 Abs Immat Gran (auto) 0.01 (0.00-0.031) K/mm3 Absolute Neuts (auto) 3.9 (1.3-6.7) K/mm3 Absolute Nucleated RBC 0.000 (0.0-0.012) K/mm3 Nucleated RBC % 0.0 (0.0-0.2) % PT 13.9 (11.1-14.7) Seconds INR 1.0 APTT 26.8 (22.3-36.8) Seconds D-Dimer < 0.27 (<0.48) ug/mL Sodium 139 (137-145) mmol/L Potassium 4.0 (3.4-5.0) mmol/L Chloride 100 (98-107) mmol/L Carbon Dioxide 27 (22-30) mmol/L Anion Gap 12 (4-12) mmol/L BUN 9 (7-17) mg/dL Creatinine 0.70 (0.7-1.0) mg/dL Estim Creat Clear Calc 94 ml/min Estimated GFR > 60 (59 - ) Glucose 97 (65-110) mg/dL Lactic Acid 1.4 (0.7-2.0) mmol/L Calcium 9.6 (8.4-10.2) mg/dL Total Bilirubin 0.6 (0.2-1.3) mg/dL AST 43 H (14-36) U/L ALT 57 H (6-35) U/L Alkaline Phosphatase 82 (38-126) U/L Troponin I < 0.012 (0.000-0.034) ng/mL C-Reactive Protein 1.5 H (<1.0) mg/dL Total Protein 9.0 H (6.3-8.2) g/dL Albumin 4.6 (3.5-5.1) g/dL Urine Color Yellow (Yellow) Urine Appearance Clear (Clear) Urine pH 6.5 (5.0-9.0) Ur Specific [place] 1.010 (1.001-1.035) Urine Protein Negative (Negative) mg/dL Urine Glucose (UA) Negative (Negative) mg/dL Urine Ketones Negative (Negative) mg/dL Ur Blood (Man) Negative (Negative) Urine Nitrate Negative (Negative) Urine Bilirubin Negative (Negative) Urine Urobilinogen 0.2 (<2.0) mg/dL Leukocyte Esterase Rfl Negative (Negative) URBAN/UL POC Urine HCG, Qual Negative (Negative) Influenza A (RT-PCR) Negative (Negative) Influenza B (RT-PCR) Negative (Negative) RSV (RT-PCR) Negative (Negative) SARS-CoV-2 RNA (RT-PCR) Negative (Negative) Group A Strep (PCR) Not detected (Negative) <Rakel Galeas PA-C - Last Filed: 08/25/24 23:38> Imaging Data Radiologist's impression: ITS Impressions Chest X-Ray 08/25/24 21:15 IMPRESSION: Subsegmental bibasilar opacities may represent atelectasis or consolidation. <Rakel Galeas PA-C - Last Filed: 08/25/24 23:38> ECG Data EKG #1: ECG completion date: 08/25/24 <Rakel Galeas PA-C - Last Filed: 08/25/24 23:38> EKG Interpretation: tachycardia, sinus rhythm and no ST changes <Rakel Galeas PA-C - Last Filed: 08/25/24 23:38> Critical Care Time Critical Care Time Critical Care Time: No <Rakel Galeas PA-C - Last Filed: 08/25/24 23:38> Discharge Plan Discharge Clinical Impression: Pneumonia Qualifiers: Pneumonia type: due to unspecified organism Laterality: bilateral Lung location: unspecified part of lung Qualified Code(s): J18.9 - Pneumonia, unspecified organism <Tammy Lopes APRN - Last Filed: 08/25/24 19:35> Patient Disposition: Home, Self-Care <Tammy Lopes APRN - Last Filed: 08/25/24 19:35> Condition: Improved <Tammy Lopes APRN - Last Filed: 08/25/24 19:35> Instructions: Antibiotic Form, Pneumonia (ED) <Tammy Lopes APRN - Last Filed: 08/25/24 19:35> Additional Instructions: Return to the emergency department for worsening symptoms, or any other concerns Remain well-hydrated, get plenty of rest. Take Tylenol or Motrin [id number] for pain as needed. Flonase for nasal congestion. Zyrtec for runny nose. Lozenges or Chloraseptic spray for sore throat. Take oral antibiotics as prescribed Follow up with primary care doctor <Tammy Lopes APRN - Last Filed: 08/25/24 19:35> Prescriptions: New azithromycin 250 mg tablet See Rx Instructions .ROUTE .COMPLEX Qty: 6 0RF Rx Instructions: For 250 mg dose pack: take 500 mg today (day 1), then 250 mg for 4 days (days 2-5) amoxicillin 500 mg capsule 1,000 mg PO TID 5 Days Qty: 30 0RF No Action levothyroxine 125 mcg tablet 125 mcg PO DAILY ergocalciferol (vitamin D2) 1,250 mcg (50,000 unit) capsule 1,250 mcg PO WEEKLY PNV cmb#95-ferrous fumarate-FA [] 28 mg iron- 800 mcg tablet 1 tablet PO DAILY ferrous sulfate [Iron (ferrous sulfate)] 325 mg (65 mg iron) tablet 325 mg PO DAILY Qty: 20 0RF cefdinir 300 mg capsule 300 mg PO Q12H 10 Days Qty: 20 0RF azithromycin [Zithromax Z-Hair] 250 mg tablet See Rx Instructions PO .COMPLEX Qty: 6 0RF Rx Instructions: For 250 mg dose pack: take 500 mg today (day 1), then 250 mg for 4 days (days 2-5) hydrocodone-acetaminophen 5-325 mg tablet 1 tablet PO Q6H PRN (Reason: pain) Qty: 10 0RF <Tammy Lopes APRN - Last Filed: 08/25/24 19:35> Follow-up/Referrals: Fabricio Guadarrama MD [Primary Care Provider] - <Tammy Lopes APRN - Last Filed: 08/25/24 19:35>
--- NOTE | 2024-08-25 19:41 | PCRCNOTE ---
unable to give breathing tx ordered at 1900 due to patient not having a ED room yet. No available room to pull patient to, to complete tx. Tx will be given lisa when patient receives ED bed.
[2024-08-25 19:48] LABS: Basophils Percent Auto 0.7 % (0.2-1.2); Eosinophils Absolute Auto 0.1 K/mm3 (0-0.3); Eosinophils Percent Auto 0.8 % (0-4.4); Hematocrit 41.7 % (37.0-47.0); Hemoglobin 14.3 g/dL (12.0-15.0); Immature Granulocyte Absolute 0.01 K/mm3 (0.00-0.031); Immature Granulocyte Percent A 0.2 % (0-0.5); Lymphocytes Absolute Auto 1.38 K/mm3 (0.9-3.2); Lymphocytes Percent Auto 23.1 % (18.3-44.2); Mean Corpuscular HGB Conc 34.3 g/dl (32-36); Mean Corpuscular Hemoglobin 30.7 pg (26-34); Mean Corpuscular Volume 89.5 fl (80-100); Mean Platelet Volume 9.8 fl (7.4-10.4); Monocytes Absolute Auto 0.6 K/mm3 (0.1-0.6); Monocytes Percent Auto 9.4 % (2.6-8.5); Neutrophils Absolute Auto 3.9 K/mm3 (1.3-6.7); Neutrophils Percent Auto 65.8 % (45.5-73.1); Platelet Count Result 299 k/mm3 (150-375); Red Blood Count 4.66 M/mm3 (4.2-5.4); Red Cell Distribution Width 12.2 % (11.5-14.5)
[2024-08-25 20:00] LABS: Partial Thromboplastin Time 26.8 Seconds (22.3-36.8); Prothrombin Time 13.9 Seconds (11.1-14.7)
[2024-08-25 20:04] LABS: Lactic Acid Reflex 1.4 mmol/L (0.7-2.0)
[2024-08-25 20:05] LABS: Alanine Aminotransferase 57 U/L (6-35); Albumin Level 4.6 g/dL (3.5-5.1); Alkaline Phosphatase 82 U/L (38-126); Anion Gap 12 mmol/L (4-12); Aspartate Amino Transferase 43 U/L (14-36); Bilirubin,Total 0.6 mg/dL (0.2-1.3); Blood Urea Nitrogen 9 mg/dL (7-17); CRP 1.5 mg/dL (<1.0); Calcium 9.6 mg/dL (8.4-10.2); Carbon Dioxide 27 mmol/L (22-30); Chloride 100 mmol/L (98-107); Estimated CRCL calculation 94 ml/min; Estimated Glomerular Filt Rate > 60; Glucose 97 mg/dL (65-110); Sodium 139 mmol/L (137-145)
[2024-08-25 20:09] LABS: Strep Group A RT-PCR NOT DETECTED (Negative)
[2024-08-25] MEDS: SODIUM CHLORIDE 0.9% IV 1,000 ML 999 ML IV CONT ×2 (20:11→21:39)
[2024-08-25] MEDS: IBUPROFEN 600 MG TABLET PO (20:11)
[2024-08-25] MEDS: ACETAMINOPHEN 500 MG TABLET 1000 MG PO (20:11)
[2024-08-25 20:12] VITALS: PULSE 103; RESP 18
[2024-08-25] MEDS: IPRATROPIUM 0.5 MG/ALBUTEROL SULFATE 2.5 MG AMPUL.NEB 3 ML 6 ML INHALATION (20:12)
[2024-08-25 20:15] LABS: BEDSIDEPREGUCG Negative (Negative)
[2024-08-25 20:15] LABS: Troponin I < 0.012 ng/mL (0.000-0.034)
[2024-08-25 20:29] VITALS: PULSE 115; RESP 26
[2024-08-25 20:35] VITALS: BP 100/65; PULSE 110; RESP 16; O2SAT 97
[2024-08-25 21:07] LABS: Add Urine Microscopic? NO; Appearance Urine Clear (Clear); Bilirubin Urine Negative (Negative); Blood Urine Negative (Negative); Color Urine Yellow (Yellow); Glucose Urine UA Negative (Negative); Ketones Urine Negative (Negative); Leukocyte Esterase Ur Negative LEU/UL (Negative); Nitrate Urine Negative (Negative); Protein Urine Negative (Negative); Urobilinogen Urine 0.2 mg/dL (<2.0); pH Urine 6.5 (5.0-9.0)
[2024-08-25 21:40] LABS: D Dimer < 0.27 ug/mL (<0.48)
[2024-08-25 23:15] VITALS: BP 119/74; PULSE 96; RESP 18; O2SAT 100
== END 2024-08-25 23:47 | disposition home or self-care (01) ==
PROVIDERS: Emergency Medicine; Family Medicine; Registered Nurse; Emergency Provider Physician Assistant; PCP Emergency Medicine
DX: J18.9 Pneumonia, unspecified organism (principal); Z20.822 Contact with and (suspected) exposure to COVID-19; E03.9 Hypothyroidism, unspecified; E66.3 Overweight; Z68.29 Body mass index [BMI] 29.0-29.9, adult; Z79.899 Other long term (current) drug therapy; R00.0 Tachycardia, unspecified; R94.31 Abnormal electrocardiogram [ECG] [EKG]
CPT/HCPCS: 36415; 71046; 80053; 81003; 81025; 83605; 84484; 85025; 85380; 85610; 85730; 86140; 87040; 87637; 87651; 93005; 94640; 96360; 96361; 99283; A9270; J7030

== ENCOUNTER 2024-09-12 22:27 | Emergency (ER) | payer OTHER, SELFPAY ==
--- NOTE | ~2024-09-12 | XR_ITS ---
Clinical Indication: Cough PA and lateral views of the chest: Comparison: 08/25/2024 Findings: The lungs are clear, without evidence of focal consolidation or pleural effusion. Cardiome diastinal silhouette is within normal limits. Bones and soft tissues are unremarkable. Impression: Normal chest. Reviewed, dictated and finalized at location . DENTIAL DIRECTOR Impression: Normal chest.
[2024-09-12 22:44] VITALS: BP 133/80; PULSE 70; RESP 13; TEMP 36.4; O2SAT 100
--- NOTE | 2024-09-12 23:59 | ED_ITS ---
HPI - URI/Sore Throat General Chief Complaint: Upper Respiratory Infection Stated Complaint: I want to see if I have pneumonia Time Seen by Provider: 09/12/24 23:59 Source: patient Mode of arrival: ambulatory Limitations: no limitations History of Present Illness HPI Narrative: This is a 43-year-old female who presents to the ED for chief complaint of cough. States she was diagnosed with pneumonia 18 days ago. She took a 5 day course of antibiotics. She states that she is just here to see if she still has pneumonia. Denies fevers, chills, nausea, vomiting, shortness of breath or chest pain Related Data Home Medications Medication Instructions Recorded Confirmed ergocalciferol (vitamin D2) 1,250 1,250 mcg PO WEEKLY 08/21/22 10/05/22 mcg (50,000 unit) capsule levothyroxine 125 mcg tablet 125 mcg PO DAILY 08/21/22 10/05/22 vit no.95-ferrous 1 tablet PO DAILY 08/21/22 10/05/22 fumarate 28 mg-folic acid 800 mcg tablet () Allergies Allergy/AdvReac Type Severity Reaction Status Date / Time No Known Allergies Allergy Verified 09/12/24 22:27 Review of Systems Review of Systems: All systems as dictated in [facility] Past Medical History Medical History (Updated 09/13/24 @ 00:03 by Nestor Nunes PA-C) Hypothyroidism Overweight Social History Social History (System 12/24/23 @ 14:03 by Gaby Abbott) Smoking status: Never smoker Second hand tobacco smoke exposure: No Alcohol intake: never Substance use: never Substance use type: does not use Lack of Transportation: No Lack of Food: Never True Current Housing: I Have Housing Concerned About Future Housing: No Difficulty Paying Gas/Electric Bills: No Difficulty Paying for Meds: No Currently Unemployed: No Education: High School Diploma/GED Difficulty w/ Childcare or Family Care: No Living arrangements: with family Spiritual care concerns: No Exam Narrative: GENERAL: Well-appearing, well-nourished, and in no acute distress. HEAD: Normocephalic, atraumatic. EYES: PERRLA and EOMI. ENT: Nares clear, no rhinorrhea or epistaxis. Mucous membranes moist. Oropharynx without tonsillar hypertrophy exudate or other lesions. NECK: Supple. No adenopathy or masses. CHEST: No respiratory distress. Clear to auscultation. No wheezes rales or rhonchi HEART: Regular rate and rhythm. No murmur heard. Normal peripheral pulses. ABDOMEN: Soft, nontender, nondistended, normal active bowel sounds. MSK: Normal range of motion. No edema. SKIN: Warm, dry, no rash. NEURO: Alert and oriented x4. No focal deficits. PSYCH: Normal mood and affect. Course Vital Signs Vital signs: Vital Signs Temperature 97.6 F 09/12/24 22:44 Pulse Rate 70 09/12/24 22:44 Respiratory Rate 13 09/12/24 22:44 Blood Pressure 133/80 09/12/24 22:44 Pulse Oximetry 100 09/12/24 22:44 Oxygen Delivery Room Air 09/12/24 22:44 Temperature 97.6 F 09/12/24 22:44 Pulse Rate 70 09/12/24 22:44 Respiratory Rate 13 09/12/24 22:44 Blood Pressure 133/80 09/12/24 22:44 Pulse Oximetry 100 09/12/24 22:44 Oxygen Delivery Room Air 09/12/24 22:44 MDM - URI/Sore Throat MDM Narrative Medical decision making narrative: This is a 43 yo female who presents to the ED for chief complaint of continued cough after pneumonia diagnosis 3 weeks ago. She did complete a course of antibiotics. Vitals are normal. Exam is benign. She is well-appearing. Chest x-ray two view today is well-appearing. Looks like the bibasilar opacities from previous have resolved. Rx for guaifenesin for continued cough Patient will be discharged in stable condition. Supportive measures discussed and return precautions given. Patient is understanding and agreeable with plan for discharge with PCP follow-up. Discharge Plan Discharge Clinical Impression: Cough Patient Disposition: Home, Self-Care Condition: Stable Instructions: Antibiotic Form Additional Instructions: Exam and imaging today are reassuring. Please take guaifenesin for cough. Follow-up with PCP. If you have any new or worsening symptoms please return to the ER for further evaluation. Prescriptions: New guaifenesin 600 mg tablet extended release 12hr 600 mg PO Q12H PRN (Reason: cough) Qty: 20 0RF No Action levothyroxine 125 mcg tablet 125 mcg PO DAILY ergocalciferol (vitamin D2) 1,250 mcg (50,000 unit) capsule 1,250 mcg PO WEEKLY PNV cmb#95-ferrous fumarate-FA [] 28 mg iron- 800 mcg tablet 1 tablet PO DAILY ferrous sulfate [Iron (ferrous sulfate)] 325 mg (65 mg iron) tablet 325 mg PO DAILY Qty: 20 0RF cefdinir 300 mg capsule 300 mg PO Q12H 10 Days Qty: 20 0RF azithromycin [Zithromax Z-Hair] 250 mg tablet See Rx Instructions PO .COMPLEX Qty: 6 0RF Rx Instructions: For 250 mg dose pack: take 500 mg today (day 1), then 250 mg for 4 days (days 2-5) azithromycin 250 mg tablet See Rx Instructions .ROUTE .COMPLEX Qty: 6 0RF Rx Instructions: For 250 mg dose pack: take 500 mg today (day 1), then 250 mg for 4 days (days 2-5) amoxicillin 500 mg capsule 1,000 mg PO TID 5 Days Qty: 30 0RF hydrocodone-acetaminophen 5-325 mg tablet 1 tablet PO Q6H PRN (Reason: pain) Qty: 10 0RF Follow-up/Referrals: Fabricio Guadarrama MD [Primary Care Provider] - Time of Disposition: 00:03
[2024-09-13 00:12] VITALS: O2SAT 100
== END 2024-09-13 00:12 | disposition home or self-care (01) ==
LOC: ANHED 09-13 00:03
PROVIDERS: Emergency Provider Physician Assistant; PCP Emergency Medicine
DX: R05.9 Cough, unspecified (principal); E03.9 Hypothyroidism, unspecified; E66.3 Overweight; Z68.30 Body mass index [BMI] 30.0-30.9, adult; Z87.01 Personal history of pneumonia (recurrent); Z79.899 Other long term (current) drug therapy
CPT/HCPCS: 71046; 99283

== ENCOUNTER 2025-01-10 09:14 | Emergency (ER) | payer OTHER, SELFPAY ==
--- NOTE | ~2025-01-10 | XR_ITS ---
XR chest 1V portable Ordering provider: Bhavya Lazar MD History: 44 years Female with . POSSIBLE PNEUMONIA . Comparison: September 12, 2024 FINDINGS: MEDIASTINUM: The cardiac silhouette is not enlarged. LUNGS: No infiltrates, effusions or pneumothorax. OTHER: No free air under the diaphragm. IMPRESSION: No acute cardiopulmonary pathology. Reviewed, dictated and finalized at location A.
--- OUTSIDE RECORDS SUMMARY | 2025-01-10 09:16 | XMS_ITS | Clinical Summary ---
Author Organization [facility] [employer] Address [address] [place] [address] Care Team Providers Care Math Professor Name Role Phone Fabricio Guadarrama MD Primary Care Provider [phone] Source Comments [facility] [employer],non-owned Affiliates and Associated Physician Practices is amultiple site organization consisting of ambulatory clinics and hospital sitesin [place], [place], [place] and [place]. This disclosure is being madepursuant to the Care Everywhere program and may not contain all information available regarding this patient. Last updated 18.[employer] Allergies No known active allergies Medications * Be aware that medications may not be up to date on this document. Alwaysverify current medications with the patient. Medication Sig Dispensed Refills Start Date End Date Status OneTouch Delica Lancets 33G MISC Use 1 Each 4 times daily 100 Each 3 06/27/2022 Active blood glucose (OneTouch Verio) test strip Use 1 (one) strip 4 times daily 100 strip 3 06/27/2022 Active levothyroxine (Synthroid) 125 MCG tablet Take 125 mcg by mouth daily before breakfast Active Vit-DSS-Fe Fum-FA ( vitamin with iron) tablet Take 1 tablet by mouth once daily Active Active Problems Problem Noted Date Diagnosed Date Rheumatoid factor positive 12/04/2021 Overview (12/04/2021): Prior symptoms suggesting a inflammatory arthritis including early RA 12 years ago (no treatment) and now seems to be in spontaneous remission. Assessment & Plan (12/04/2021 2:00 PM ANIMAL CARE SERVICE WORKER): Prior symptoms suggesting a inflammatory arthritis including early RA 12 years ago (no treatment) and now seems to be in spontaneous remission. The finding of a positive rheumatoid factor of undetermined clinical significance without current history, examination findings, and/or additional available laboratory results for review, regarding this finding being consistent with the specific diagnosis of rheumatoid arthritis by [employer] classification criteria nor seems to suggest any other active inflammatory polyarthropathy at this time. Rheumatoid factors are nonspecific in nature and can be seen in otherwise healthy individuals and generally are more frequently found in older age groups. Rheumatoid factor can be seen as an immunologic phenomena in patients with chronic infections (e.g. tuberculosis, syphilis, hepatitis C), chronic gingivitis and periodontal disease, cryoglobulinemia, and pulmonary fibrosis. Additional evaluation should be considered in clinically indicated cases. 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 Encounters Date Type Department Care Team Description 10/13/2024 2:10 PM ANIMAL CARE SERVICE WORKER Clinical Support [facility] - Ophthalmology [address] [place] [phone] Willian Casanova, OD Irregular astigmatism of both eyes (Primary Dx) 10/13/2024 1:30 PM ANIMAL CARE SERVICE WORKER Office Visit [facility] - Ophthalmology [address] [place] [phone] Willian Casanova, OD Irregular astigmatism of both eyes (Primary Dx) 10/13/2024 Travel from Last 3 Months Social History Tobacco Use Types Packs/Day Years Used Date Smoking Tobacco: Never Smokeless Tobacco: Never Alcohol Use Standard Drinks/Week Comments Not Currently 0 (1 standard drink = 0.6 oz pur e alcohol) Sex and Gender Information Value Date Recorded Sex Assigned at Not on file Gender Identity Not on file Sexual Orientation Not on file Last Filed Vital Signs Vital Sign Reading Time Taken Comments Blood Pressure 104/75 06/27/2022 2:49 PM CDT Pulse 86 06/27/2022 2:49 PM CDT Temperature 36.1 C (97 F) 12/04/2021 1:26 PM ANIMAL CARE SERVICE WORKER Respiratory Rate 16 12/04/2021 1:26 PM ANIMAL CARE SERVICE WORKER Oxygen Saturation 99% 06/27/2022 2:49 PM CDT Inhaled Oxygen Concentration - - Weight 84.1 kg (185 lb 6.4 oz) 06/27/2022 3:48 P M CDT Height 165.1 cm (5' 5 ) 06/27/2022 3:48 PM CDT Body Mass Index 30.85 06/27/2022 3:48 PM CDT Plan of Treatment Health Maintenance Due Date Last Done Comments LIPID TESTING 1980 MAMMOGRAM 1980 DTAP/TDAP/TD VACCINES (1 - Tdap) 1999 HEPATITIS B VACCINE (1 of 3 - 19+ 3-dose series) 1999 SCREENING FOR DIABETES 12/04/2021 COVID-19 VACCINE (1 - 2023-2 5 season) 2024 INFLUENZA VACCINE (#1) 2024 DEPRESSION SCREENING 10/28/2024 PAP SMEAR 11/03/2024 11/03/2021 ZOSTER VACCINE (1 of 2) 2030 HEPATITIS C SCREENING Completed 12/04/2021 HIV SCREENING Completed 06/11/2022 HIB VACCINE Aged Out No longer eligi ble based on patient's age to complete this topic HPV VACCINE Aged Out No longer eligi ble based on patient's age to complete this topic MENINGOCOCCAL (Group B) VACC INE SHARED DECISION-MAKING Aged Out No longer eligibl e based on patient's age to complete this topic MENINGOCOCCAL GROUPS A/C/Y/W VACCINE Aged Out No longer eligible b ased on patient's age to complete this topic PNEUMOCOCCAL VACCINE Aged Out No long er eligible based on patient's age to complete this topic Procedures Procedure Name Priority Date/Time Associated Diagnosis Comments CORNEAL TOPOGRAPHY UNI/BI Routine 10/13/2024 2:07 PM ANIMAL CARE SERVICE WORKER Irregular astigmatism of both eyes HEPATITIS C ANTIBODY Routine 12/04/2021 2:11 PM ANIMAL CARE SERVICE WORKER Rheumatoid factor positive from Last 3 Months or Most Recently Relevant to Health Maintenance Results * CORNEAL TOPOGRAPHY UNI/BI (10/13/2024 2:07 PM ANIMAL CARE SERVICE WORKER) Anatomical Region Laterality Modality Head External-Camera Photography Narrative 10/13/2024 2:21 PM ANIMAL CARE SERVICE WORKER Images from the original result were not included. OD: high amounts of WTR astigmatism, no concerns for keratoconus OS: high amounts of WTR astigmatism, no concerns for keratoconus Willian Casanova OD OPHTHALMOLOGY SCHED ORD W PACS * HEPATITIS C ANTIBODY (12/04/2021 2:11 PM ANIMAL CARE SERVICE WORKER) Hepatitis C Antibody <0.1 0.0 - 0.9 s/co ratio [facility] INSURANCE BILL Comment: Negative: < 0.8 Indeterminate: 0.8 - 0.9 Positive: > 0.9 . The CDC recommends that a positive HCV antibody result be followed up with a HCV Nucleic Acid Amplification test ([id number]). Blood BLOOD SPECIMEN / Unknown 12/04/2021 2:11 PM ANIMAL CARE SERVICE WORKER 12/04/2021 Narrative Resulting Agency Comment Lab Testing performed at: [facility] [address] [facility] [id number] Abdirahman Mendez DO LAB - CHEMISTRY YARELI BALBUENA [facility] INSURANCE BILL [address] [place] [address] from Last 3 Months or Most Recently Relevant to Health Maintenance Care Teams Math Professor Relationship Specialty Start Date End Date Fabricio Guadarrama MD [address] [place] [address] PCP - General Family Medicine 12/04/21
--- OUTSIDE RECORDS SUMMARY | 2025-01-10 09:16 | XMS_ITS | Data Portability ---
Author Organization [place] [employer], Main Office Address [address] [place] [address] Care Team Providers Care Rfid Strategist Name Role Phone SHELLEY CHACON Primary Care Provider Assessment No assessment recorded. Plan of Treatment Reminders Order Date Submit Date Provider Last Modified By Organization Details Last Modified Time Details Appointments None recorded. Lab None recorded. Referral None recorded. Procedures colonoscopy procedure (PROC) 2023 024 [email or web address] Not available 08:03:18 Surgeries None recorded. Imaging None recorded. Medication Orders Golytely 236 gram-22.74 gram-6.74 gram-5.86 gram oral solution [address] [facility] [address] [place], [address], 14:43:28 Patient TargetsNo targets recorded. Patient Instructions Encounter Date Encounter Id Patient Instructions Last Modified By Organization Details Last Modified Time 07/08/2024 [id number] GOLYTELY [email or web address] Not available 08/2024 14:41:32 PT IWTH SALAZAR . RECOMMEND CONTROL OF LIPIDS , LOW FAT DIET , MODERATE EXERCISE . PT WITH MILAD . RECOMMEND A COLNOSOCOPY . . Risks benefits and complications were explained to the pt. ( BLEEDING PERFORATION , INFECTION , ). PT VERBALIZES UNDERSTANDING AND IS WILLING TO PROCEDE . Not available 07/08/2024 14:42:33 Reason for Referral None Reported. Results Created Date Observation Date Name Description Value Unit Range Abnormal Flag Note LastModifiedBy Organization Detail LastModifiedTime 02/10/20 22 02/12/2022 TESTO STERO NE, FREE (DIAL YSIS) AND TOTAL ,MS testosterone , total, MS 69 NG/dL 2-45 high For addit ional infor chika joseph refer to https ://ed ucati on.Jamclouds dianaConsensus Point. [employer]/f aq/FA Q165 (This link is being provi ded for infor manuel nal/e ducat ional purpo ses only. ) (Note ) This test was devel oped and its mariah tical perfo rmanc e sol cteri stics have been deter mined by [employer]. It has not been clear ed or appro susanna by the FDA. This assay has been valid ated pursu ant to the CLIA regul ation s and is used for clini agnes purpo ses. Not Available [facility] [address], [place], [address], 02/12/2022 16:23:51 02/10/20 22 02/12/2022 TESTO STERO NE, FREE (DIAL YSIS) AND TOTAL ,MS testosterone , free 1.5 pg/mL 0.1-6. 4 (Note ) This test was devel oped and its mariah tical perfo rmanc e sol cteri stics have been deter mined by [employer]. It has not been clear ed or appro susanna by the FDA. This assay has been valid ated pursu ant to the CLIA regul ation s and is used for clini agnes purpo ses. F med fusio n [address] [facility] [address] [facility] [address] [phone] Ronan taylor MD Not Available [facility] [address], [place], [address], 02/12/2022 16:23:51 02/10/20 22 02/12/2022 T3, FREE T3, free 2.5 pg/mL 2.3-4. 2 normal Not Available [facility] [address], [place], [address], 02/12/2022 16:23:50 02/10/20 02/12/2022 VITAM IN B12/F OLATE , SERUM PANEL vitamin B12 208 pg/mL 200-11 00 normal Pleas e Note: Altho ugh the refer ence range for vitam in B12 is 200-1 100 pg/mL , it has been repor kelsey that betwe en 5 and 10% of patie nts with value s betwe en 200 and 400 pg/mL may exper ience neuro psych iatri c and hemat ologi c abnor malit ies due to occul t B12 defic iency ; less than 1% of patie nts with value s above 400 pg/mL will have sympt oms. Not Available [email or web address] [address] [place], [address], 02/12/2022 16:23:49 02/10/2002/12/2022 VITAM IN B12/F OLATE , SERUM PANEL folate, serum 18.1 NG/mL normal Refer ence Range Low: <3.4 Borde rline : 3.4-5 .4 Kim l: >5.4 Not Available [facility] [address] [place], [address], 02/12/2022 16:23:49 02/10/2002/12/2022 ESTRA DIOL estradiol 2163 pg/mL high Refer ence Range Folli cular Phase : 19-14 4 Mid-C ycle: 64-35 7 Lutea l Phase : 56-21 4 Postm enopa usal: < or = 31 Refer ence range estab lishe d on post- puber roe patie nt popul ation . No pre-p ubert al refer ence range estab lishe d using this assay . For any patie nts for whom low Estra diol level s are antic ipate d (e.g. males , pre-p ubert al child andres and hypog onada l/pos t-men opaus al femal es), the [facility] Inst[facility] tute Estra diol, Ultra sensi tive, LCMSM S assay is recom erlin d (orde r code 80937 ). Pleas e note: patie nts being treat ed with the drug fulve stran t (Fasl odex( R)) have demon strat ed signi fican t inter feren ce in immun oassa y metho ds for estra diol measu remen t. The cross react ivity could lead to false ly eleva kelsey estra diol test resul ts leadi ng to an inapp ropri ate clini agnes asses sment of estro gen statu s. [facility] order code 10399 -Estr adiol , Ultra sensi tive LC/MS /MS demon strat es negli gible cross react ivity with fulve stran t. Not Available [email or web address] [place] [address] [place], [address], 02/12/2022 16:23:49 02/10/20 22 02/12/2022 TSH TSH 14.91 mIU/L high Refer ence Range > or = 20 Years 0.40- 4.50 Pregn naye Range s First trime ster 0.26- 2.66 Secon d trime ster 0.55- 2.73 Third trime ster 0.43- 2.91 Not Available [email or web address] [place] [address] [place], [address], 02/12/2022 16:23:48 02/10/20 22 02/12/2022 T4, FREE T4, free 1.0 NG/dL 0.8-1. 8 normal Not Available [email or web address] [place] [address] [place], [address], 02/12/2022 16:23:48 02/10/20 22 02/12/2022 PROGE STERO NE progesterone 27.7 NG/mL normal Refer ence Range s Femal e Folli cular Phase < 1.0 Lutea l Phase 2.6-2 1.5 Post menop ausal < 0.5 Pregn naye 1st Trime ster 4.1-3 4.0 2nd Trime ster 24.0- 76.0 3rd Trime ster 52.0- 302.0 Not Available [email or web address] [place] [address] [place], [address], 02/12/2022 16:23:47 02/10/20 22 02/12/2022 LH LH <0.2 mIU/m L low Refer ence Range Folli cular Phase 1.9-1 2.5 Mid-C ycle Peak 8.7-7 6.3 Lutea l Phase 0.5-1 6.9 Postm enopa usal 10.0- 54.7 Not Available [email or web address] [address] [place], [address], 02/12/2022 16:23:47 02/10/20 22 02/12/2022 INSUL IN insulin 18.9 uIU/m L normal Refer ence Range < or = 19.6 Risk: Optim al < or = 19.6 Moder ate NA High >19.6 Adult cardi ovasc ular event risk categ ory cut point s (opti mal, moder ate, high) are based on [facility] popul ation data from 10/16 11. This insul in assay shows stron g cross -reac tivit y for some insul in analo gs (lisp ro, aspar t, and glarg ine) and much lower cross -reac tivit y with other s (dete boston, gluli sine) . Not Available [email or web address] [address] [place], [address], 02/12/2022 16:23:46 02/10/20 22 02/12/2022 FSH FSH <0.7 mIU/m L low Refer ence Range Folli cular Phase 2.5-1 0.2 Mid-c ycle Peak 3.1-1 7.7 Lutea l Phase 1.5- 9.1 Postm enopa usal 23.0- 116.3 Not Available [email or web address] [address] [place], [address], 02/12/2022 16:23:45 02/10/20 22 02/12/2022 DHEA SULFA TE DHEA sulfate 161 mcg/d L 15-205 normal DHEA- S value s fall with advan cing age. For refer ence, the refer ence inter vals for 31-40 year old patie nts are: Male: 93-41 5 mcg/d L Femal e: 19-23 7 mcg/d L Not Available [address], [address], 02/12/2022 16:23:45 02/10/20 22 02/12/2022 COMPR EHENS LEATHA METAB OLIC PANEL glucose 25 mg/dL 65-99 critical low Verif ied by repea t mariah sis. Fasti ng refer ence inter ty Not Available [address], [address], 02/12/2022 16:23:44 02/10/20 22 02/12/2022 COMPR EHENS LEATHA METAB OLIC PANEL urea nitrogen (BUN) 10 mg/dL 7-25 normal Not Available [address], [address], 02/12/2022 16:23:44 02/10/20 22 02/12/2022 COMPR EHENS LEATHA METAB OLIC PANEL creatinine 0.52 mg/dL 0.50-1 .10 normal Not Available [address], [address], 02/12/2022 16:23:44 02/10/20 22 02/12/2022 COMPR EHENS LEATHA METAB OLIC PANEL eGFR non-afr. lithuanian 119 mL/mi n/1.7 3m2 > or = 60 normal Not Available [address], [address], 02/12/2022 16:23:44 02/10/20 22 02/12/2022 COMPR EHENS LEATHA METAB OLIC PANEL eGFR 138 mL/mi n/1.7 3m2 > or = 60 normal Not Available [address], [address], 02/12/2022 16:23:44 02/10/20 22 02/12/2022 COMPR EHENS LEATHA METAB OLIC PANEL BUN/creatini ne ratio not applic able (calc ) 6-22 Not Available [address], [address], 02/12/2022 16:23:44 02/10/20 22 02/12/2022 COMPR EHENS LEATHA METAB OLIC PANEL sodium 140 mmol/ L 135-14 6 normal Not Available [address], [address], 02/12/2022 16:23:44 02/10/20 22 02/12/2022 COMPR EHENS LEATHA METAB OLIC PANEL potassium 3.9 mmol/ L 3.5-5. 3 normal Not Available [address], [address], 02/12/2022 16:23:44 02/10/20 22 02/12/2022 COMPR EHENS LEATHA METAB OLIC PANEL chloride 101 mmol/ L 98-110 normal Not Available [address], [address], 02/12/2022 16:23:44 02/10/20 22 02/12/2022 COMPR EHENS LEATHA METAB OLIC PANEL carbon dioxide 24 mmol/ L 20-32 normal Not Available [address], [address], 02/12/2022 16:23:44 02/10/20 22 02/12/2022 COMPR EHENS LEATHA METAB OLIC PANEL calcium 8.8 mg/dL 8.6-10 .2 normal Not Available [address], [address], 02/12/2022 16:23:44 02/10/20 22 02/12/2022 COMPR EHENS LEATHA METAB OLIC PANEL protein, total 7.0 g/dL 6.1-8. 1 normal Not Available [address], [address], 02/12/2022 16:23:44 02/10/20 22 02/12/2022 COMPR EHENS LEATHA METAB OLIC PANEL albumin 4.0 g/dL 3.6-5. 1 normal Not Available [address], [address], 02/12/2022 16:23:44 02/10/20 22 02/12/2022 COMPR EHENS LEATHA METAB OLIC PANEL globulin 3.0 g/dL_ (calc ) 1.9-3. 7 normal Not Available [address], [address], 02/12/2022 16:23:44 02/10/20 22 02/12/2022 COMPR EHENS LEATHA METAB OLIC PANEL albumin/glob ulin ratio 1.3 (calc ) 1.0-2. 5 normal Not Available [address], [address], 02/12/2022 16:23:44 02/10/20 22 02/12/2022 COMPR EHENS LEATHA METAB OLIC PANEL bilirubin, total 0.4 mg/dL 0.2-1. 2 normal Not Available [address], [address], 02/12/2022 16:23:44 02/10/20 22 02/12/2022 COMPR EHENS LEATHA METAB OLIC PANEL alkaline phosphatase 47 U/L 31-125 normal Not Available [place] [address] [place], [address], 02/12/2022 16:23:44 02/10/20 22 02/12/2022 COMPR EHENS LEATHA METAB OLIC PANEL AST 14 U/L 10-30 normal Not Available [address] [place], [address], 02/12/2022 16:23:44 02/10/20 22 02/12/2022 COMPR EHENS LEATHA METAB OLIC PANEL ALT 11 U/L 6-29 normal Not Available [facility] [address] [place], [address], 02/12/2022 16:23:44 02/10/20 22 02/12/2022 SPECI MEN INTEG RITY COMPR OMISE D specimen integrity compromised Whole blood , unspu n or parti ally spun gel barri er tube was recei susanna more than [address] . A false eleva tion of K, Phos and LD as well as a false decre ase in gluco se may occur due to prolo nged conta ct with red cells . Not Available [facility] [address] [place], [address], 02/12/2022 16:23:44 02/21/20 22 02/24/2022 TESTO STERO NE, FREE (DIAL YSIS) AND TOTAL ,MS testosterone , total, MS 61 NG/dL 2-45 high For addit ional infor chika joseph e refer to https ://ed ucati on.qu estConsensus Point. com/f aq/FA Q165 (This link is being provi ded for infor matgabriel nal/e ducat ional purpo ses only. ) (Note ) This test was devel oped and its mariah tical perfo rmanc e sol cteri stics have been deter mined by [employer]. It has not been clear ed or appro susanna by the FDA. This assay has been valid ated pursu ant to the CLIA regul ation s and is used for clini agnes purpo ses. Not Available [facility] [address] [place], [address], 02/24/2022 10:23:01 02/21/20 22 02/24/2022 TESTO STERO NE, FREE (DIAL YSIS) AND TOTAL ,MS testosterone , free 1.4 pg/mL 0.1-6. 4 (Note ) This test was devel oped and its mariah tical perfo rmanc e sol cteri stics have been deter mined by [employer]. It has not been clear ed or appro susanna by the FDA. This assay has been valid ated pursu ant to the CLIA regul ation s and is used for clini agnes purpo ses. [facility] med fusio n [address] [facility] [address] [place] [address] [phone] Ronan taylor MD Not Available [email or web address] [address] [place], [address], 02/24/2022 10:23:01 02/21/20 22 02/24/2022 FSH AND LH FSH <0.7 mIU/m L low Refer ence Range Folli cular Phase 2.5-1 0.2 Mid-c ycle Peak 3.1-1 7.7 Lutea l Phase 1.5- 9.1 Postm enopa usal 23.0- 116.3 Not Available [email or web address] [address] [place], [address], 02/24/2022 10:23:00 02/21/20 22 02/24/2022 FSH AND LH LH <0.2 mIU/m L low Refer ence Range Folli cular Phase 1.9-1 2.5 Mid-C ycle Peak 8.7-7 6.3 Lutea l Phase 0.5-1 6.9 Postm enopa usal 10.0- 54.7 Not Available [email or web address] [address] [place], [address], 02/24/2022 10:23:00 02/21/20 22 02/24/2022 ESTRA DIOL estradiol 2748 pg/mL high Refer ence Range Folli cular Phase : 19-14 4 Mid-C ycle: 64-35 7 Lutea l Phase : 56-21 4 Postm enopa usal: < or = 31 Refer ence range estab lishe d on post- puber roe patie nt popul ation . No pre-p ubert al refer ence range estab lishe d using this assay . For any patie nts for whom low Estra diol level s are antic ipate d (e.g. males , pre-p ubert al child andres and hypog onada l/pos t-men opaus al femal es), the [facility] Insti tute Estra diol, Ultra sensi tive, LCMSM S assay is recom erlin d (orde r code 18006 ). Plelalita e note: patie nts being treat ed with the drug fulve stran t (Fasl odex( R)) have demon strat ed signi fican t inter feren ce in immun oassa y metho ds for estra diol measu remen t. The cross react ivity could lead to false ly eleva kelsey estra diol test resul ts leadi ng to an inapp ropri ate clini agnes asses sment of estro gen statu s. [facility] order code [id number] -Estr adiol , Ultra sensi tive LC/MS /MS demon strat es negli gible cross react ivity with fulve stran t. Not Available [email or web address] [address] [place], [address], 02/24/2022 10:23:00 02/21/20 22 02/24/2022 PROLA CTIN prolactin 41.9 NG/mL high Refer ence Range Femal es Non-p regna nt 3.0-3 0.0 Pregn ant 10.0- 209.0 Postm enopa usal 2.0-2 0.0 Not Available [email or web address] [address] [place], [address], 02/24/2022 10:22:59 02/21/20 22 02/24/2022 PROGE STERO NE progesterone 28.1 NG/mL normal Refer ence Range s Femal e Folli cular Phase < 1.0 Lutea l Phase 2.6-2 1.5 Post menop ausal < 0.5 Pregn naye 1st Trime ster 4.1-3 4.0 2nd Trime ster 24.0- 76.0 3rd Trime ster 52.0- 302.0 Not Available [email or web address] [address] [place], [address], 02/24/2022 10:22:59 02/21/20 22 02/24/2022 INSUL IN insulin 15.9 uIU/m L normal Refer ence Range < or = 19.6 Risk: Optim al < or = 19.6 Moder ate NA High >19.6 Adult cardi ovasc ular event risk categ ory cut point s (opti mal, moder ate, high) are based on [facility] popul ation data from 10/16 11. This insul in assay shows stron g cross -reac tivit y for some insul in analo gs (lisp ro, aspar t, and glarg ine) and much lower cross -reac tivit y with other s (dete boston, gluli sine) . Not Available [email or web address] [address] [place] [address], [address], 02/24/2022 10:22:58 02/21/20 22 02/24/2022 DHEA SULFA TE DHEA sulfate 122 mcg/d L 15-205 normal DHEA- S value s fall with advan cing age. For refer ence, the refer ence inter vals for 31-40 year old patie nts are: Male: 93-41 5 mcg/d L Femal e: 19-23 7 mcg/d L Not Available [email or web address] [address] [place], [address], 02/24/2022 10:22:58 02/21/20 22 02/24/2022 COMPR EHENS LEATHA METAB OLIC PANEL glucose 87 mg/dL 65-99 normal Fasti ng refer ence inter yt Not Available [email or web address] [address] [place], [address], 02/24/2022 10:22:57 02/21/20 22 02/24/2022 COMPR EHENS LEATHA METAB OLIC PANEL urea nitrogen (BUN) 9 mg/dL 7-25 normal Not Available [email or web address] [address] [place], [address], 02/24/2022 10:22:57 02/21/20 22 02/24/2022 COMPR EHENS LEATHA METAB OLIC PANEL creatinine 0.55 mg/dL 0.50-1 .10 normal Not Available [address], [address], 02/24/2022 10:22:57 02/21/20 22 02/24/2022 COMPR EHENS LEATHA METAB OLIC PANEL eGFR non-afr. lithuanian 117 mL/mi n/1.7 3m2 > or = 60 normal Not Available [address], [address], 02/24/2022 10:22:57 02/21/20 22 02/24/2022 COMPR EHENS LEATHA METAB OLIC PANEL eGFR 135 mL/mi n/1.7 3m2 > or = 60 normal Not Available [address], [address], 02/24/2022 10:22:57 02/21/20 22 02/24/2022 COMPR EHENS LEATHA METAB OLIC PANEL BUN/creatini ne ratio not applic able (calc ) 6-22 Not Available [address], [address], 02/24/2022 10:22:57 02/21/20 22 02/24/2022 COMPR EHENS LEATHA METAB OLIC PANEL sodium 137 mmol/ L 135-14 6 normal Not Available [address], [address], 02/24/2022 10:22:57 02/21/20 22 02/24/2022 COMPR EHENS LEATHA METAB OLIC PANEL potassium 3.9 mmol/ L 3.5-5. 3 normal Not Available [address], [address], 02/24/2022 10:22:57 02/21/20 22 02/24/2022 COMPR EHENS LEATHA METAB OLIC PANEL chloride 104 mmol/ L 98-110 normal Not Available [address], [address], 02/24/2022 10:22:57 02/21/20 22 02/24/2022 COMPR EHENS LEATHA METAB OLIC PANEL carbon dioxide 26 mmol/ L 20-32 normal Not Available [address], [address], 02/24/2022 10:22:57 02/21/20 22 02/24/2022 COMPR EHENS LEATHA METAB OLIC PANEL calcium 8.8 mg/dL 8.6-10 .2 normal Not Available [address], [address], 02/24/2022 10:22:57 02/21/20 22 02/24/2022 COMPR EHENS LEATHA METAB OLIC PANEL protein, total 6.7 g/dL 6.1-8. 1 normal Not Available [address], [address], 02/24/2022 10:22:57 02/21/20 22 02/24/2022 COMPR EHENS LEATHA METAB OLIC PANEL albumin 3.7 g/dL 3.6-5. 1 normal Not Available [address], [address], 02/24/2022 10:22:57 02/21/20 22 02/24/2022 COMPR EHENS LEATHA METAB OLIC PANEL globulin 3.0 g/dL_ (calc ) 1.9-3. 7 normal Not Available [address], [address], 02/24/2022 10:22:57 02/21/20 22 02/24/2022 COMPR EHENS LEATHA METAB OLIC PANEL albumin/glob ulin ratio 1.2 (calc ) 1.0-2. 5 normal Not Available [address] [place], [address], 02/24/2022 10:22:57 02/21/20 22 02/24/2022 COMPR EHENS LEATHA METAB OLIC PANEL bilirubin, total 0.3 mg/dL 0.2-1. 2 normal Not Available [place] [address] [place], [address], 02/24/2022 10:22:57 02/21/20 22 02/24/2022 COMPR EHENS LEATHA METAB OLIC PANEL alkaline phosphatase 44 U/L 31-125 normal Not Available [address] [address] [place], [address], 02/24/2022 10:22:57 02/21/20 22 02/24/2022 COMPR EHENS LEATHA METAB OLIC PANEL AST 12 U/L 10-30 normal Not Available [address], [address], 02/24/2022 10:22:57 02/21/20 22 02/24/2022 COMPR EHENS LEATHA METAB OLIC PANEL ALT 12 U/L 6-29 normal Not Available [address], [address], 02/24/2022 10:22:57 Result Notes None recorded. Problems Name Problem SNOMED Code Status Onset Date Resolution Date Notes Provider Name and Address Organization Details Recorded Time Nonalcoholic steatohepatit is 927115788 Active 2023 Justina Fry MD [address] [facility] [address], [place], [address] , [facility] 4 14:40:49 Iron deficiency anemia 49267612 Active 2023 Justina Fry MD [address], [place] [address], [place], [address] , [facility] e-Zassi [facility] 4 14:41:01 Problem Notes None recorded. Procedures Surgical History Date Name Laterality Status Provider Name and Address Organization Details Recorded Time 02/04/20 20 section completed Not Available [facility] 10/2022 23:58:12 cholecystectomy completed [facility] 07/06/2024 08:39:23 Tubal Ligation completed Jarek WalkerleyDEWAYNE [facility] 07/06/2024 08:39:33 Imaging Results None recorded. Procedure Notes None recorded. Medical Equipment None Reported. Allergies No known drug allergies Medications Name Sig Start Date Stop Date Status Note LastModified by Organization Details LastModified Time azithromyci n 250 mg tablet TAKE 2 TABLETS BY MOUTH ON DAY 1, AND THEN TAKE 1 TABLET BY MOUTH ONCE A DAY ON DAY 2 THROUGH DAY 5 07/08 completed Not Available Not Available Not Available pravastatin 40 mg tablet Take 1 tablet every day by oral route. 07/06 completed Not Available Not Available Not Available fluconazole 150 mg tablet TAKE 1 TABLET BY MOUTH A ONE TIME DOSE 07/08 completed Not Available Not Available Not Available amoxicillin 500 mg tablet TAKE 1 TABLET BY MOUTH EVERY 8 HOURS FOR 7 DAYS 07/08 completed Not Available Not Available Not Available levothyroxi ne 100 mcg tablet TAKE 1 TABLET BY MOUTH ONCE DAILY 07/06 completed Not Available Not Available Not Available Euthyrox 125 mcg tablet TAKE 1 TABLET BY MOUTH ONCE DAILY 07/06 completed Not Available Not Available Not Available OneTouch Ultra Test strips USE 1 NEW STRIP TO CHECK GLUCOSE 4 TIMES DAILY (FASTING IN MORNING AND THEN ONE HOUR AFTER BREAKFAST , LUNCH, AND DINNER) active Not Available Not Available No t Available Euthyrox 150 mcg tablet TAKE 1 TABLET BY MOUTH ONCE DAILY 07/06 completed Not Available Not Available Not Available cephalexin 500 mg capsule TAKE 1 CAPSULE BY MOUTH THREE TIMES DAILY WITH MEALS FOR 7 DAYS 07/06 completed Not Available Not Available Not Available erythromyci n 5 mg/gram (0.5 %) eye ointment INSTILL OINTMENT INTO THE LOWER EYELID AFFECTED EYE THREE TIMES DAILY FOR 10 DAYS 07/08 completed Not Available Not Available Not Available tobramycin 0.3 % eye drops 07/06 completed Not Available Not Available Not Available ergocalcife rol (vitamin D2) 1,250 mcg (50,000 unit) capsule TAKE 1 CAPSULE BY MOUTH ONCE A WEEK 07/08 completed Not Available Not Available Not Available cefdinir 300 mg capsule TAKE 1 CAPSULE BY MOUTH EVERY 12 HOURS FOR 10 DAYS 07/08 completed Not Available Not Available Not Available levothyroxi ne 112 mcg tablet TAKE 1 TABLET BY MOUTH ONCE DAILY IN THE MORNING ON AN EMPTY STOMACH active Not Available Not Available No t Available ferrous sulfate x1 tablet PO daily 07/06 completed Not Available Not Available Not Available Vitamin D 07/06 completed Not Available Not Available Not Available fenofibrate x1 tablet PO daily 145 MG 07/06 completed Not Available Not Available Not Available fenofibrate nanocrystal lized 145 mg tablet TAKE 1 TABLET BY MOUTH ONCE DAILY 07/08 completed Not Available Not Available Not Available Golytely 236 gram-22.74 gram-6.74 gram-5.86 gram oral solution DIRECTED 2023 active Not Available Not Available Not Avai lable ferrous sulfate 324 mg (65 mg iron) tablet,hong yed release TAKE 1 TABLET BY MOUTH TWICE DAILY 07/06 completed Not Available Not Available Not Available FeroSul 325 mg (65 mg iron) tablet TAKE 1 TABLET BY MOUTH ONCE DAILY 07/06 completed Not Available Not Available Not Available levothyroxi ne 100 mcg capsule Take 1 capsule every day by oral route in the morning. 07/06 completed Not Available Not Available Not Available 28 mg iron-800 mcg tablet TAKE 1 TABLET BY MOUTH ONCE DAILY 07/06 completed Not Available Not Available Not Available OneTouch Ultra2 Meter USE TO CHECK GLUCOSE 4 TIMES DAILY (FASTING IN THE MORNING AND THEN ONE HOUR AFTER BREAKFAST , LUNCH, AND DINNER) active Not Available Not Available No t Available OneTouch Delica Plus Lancet 33 gauge USE TO CHECK GLUCOSE 4 TIMES DAILY (FASTING IN THE MORNING AND THEN ONE HOUR AFTER BREAKFAST , LUNCH, AND DINNER active Not Available Not Available No t Available Vitals Date Recorded Body mass index (BMI) Body height Oxygen saturation Oxygen saturation in Arterial blood by Pulse oximetry Heart rate Body temperature Body weight Systolic blood pressure Diastolic blood pressure Provider Name and Address Organization Details Last Updated DateTime 2 28.5 kg/m2 165.1 cm 98 % 98 % 70 /min 97.7 [degF] 09825.0 9 g 132 mm[Hg] 100 mm[Hg] Not Available [facility] 3 23:58:29 Date Recorded Body height Body mass index (BMI) Body weight Heart rate Oxygen saturation Oxygen saturation in Arterial blood by Pulse oximetry Systolic blood pressure Diastolic blood pressure Provider Name and Address Organization Details Last Updated DateTime 4 162.56 cm 31.4 kg/m2 82280.4 g 94 /min 98 % 98 % 128 mm[Hg] 88 mm[Hg] DEWAYNE Isbell [place] - [facility] 4 13:56:05 Social History Question Answer Notes LastModified by Organizat ion Details LastModified Time Tobacco Smoking Status Never Smoker Not Available [facility] 12/26/2022 23:57:21 What Is Your Level Of Alcohol Consumption? None [id number] Information not available 12/26/2022 What Is Your Level Of Caffeine Consumption? Heavy X1 Cup/day [id number] Information not available 12/26/2022 In The 14 Days Before Symptom Onset, Have You Had Close Contact With A Laboratory-confir med COVID-19 While That Case Was Ill? No [id number] Information not available 12/26/2022 In The 14 Days Before Symptom Onset, Have You Had Close Contact With A Person Who Is Under Investigation For COVID-19 While That Person Was Ill? No [id number] Information not available 12/26/2022 What Is Your Relationship Status? [id number] Information not available 12/26/2022 Have You Recently Traveled Abroad? No [id number] Information not available 12/26/2022 Sex: Female Functional Status None recorded. Mental Status None recorded. Family History Relationship Description Onset Age of this Age Resolved Age Notes LastModified by Organization Details LastModified Time Mother Heart disease [email or web address] available 2023 13:57:21 Mother Hypercholest erolemia [email or web address] Not available 2023 13:57:32 Medical History Condition Response HIGH CHOLESTEROL / HYPERLIPIDEMIA Y HYPERTHYROIDISM Y ANEMIA/BLOOD DISORDER Y Gynecological HistoryNo gynecological history recorded. Obstetrics History GPAL:G 0 P 0 0 0 0 Past Encounters Encounter ID Performer Location Encounter Start Date Encounter Closed Date Diagnosis/Indication Diagnosis SNOMED-CT Code Diagnosis ICD10 Code Diagnosis Note [id number] [facility] [place] Endo Slava Reveles [address] [place] [address] 12/29/2021 00:00:00 12/29/2021 10:32:53 [id number] Justina Fry MD [facility] [place] General Surgery [address] [place] [address] 07/08/2024 13:47:14 07/08/2024 14:35:26 Nonalcoholic steatohepatitis 067053097 K75.81 Iron defic iency anemia 24874391 D50.9 Health Concerns Section Related Observation LastModified by Organization Detai ls LastModified Time None Recorded Concern Status LastModified by Organization Details LastModified Time None Recorded Advance Directives Directive None Recorded Payers Encounter Date Sequence Insurance Name Policy Number Policy Geiger Covered Member ID Geiger Member ID Guarantor Name 07/08/[address] [facility] (MEDICAID HMO) [id number] [facility] [id number] [facility] Notes Date Note Type Note Provider Name and Address Organization Details Recorded Time 07/08/2024 text/html [facility] WAS SEEN IN THE OFFICE TODAY FOR EVALUATION . PT HAS FATTY LIVER ON U/S . PT HAS ELEVATED CHOLESTEROL . SHE DENIES ETOH USE AND EXERCISE . PT IS ALSO ANEMIIC. SHE HAS MILAD . LABS : HB 10.9, FE 27 , TIBC 525, SAT 5% , CHOLES 210, TG 207, HDL 164, PT C/O BACK PAIN , DENIES RUQ PAIN . Justina Fry MD [address] [facility], [address], [place], [address], [place] [facility] 07/08/2024 14:43:26 OBGyn Episode No OBEpisode recorded.
--- OUTSIDE RECORDS SUMMARY | 2025-01-10 09:16 | XMS_ITS | Data Portability ---
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 I explained that the risks include, but are not limited to: bleeding and possible need for transfusion, infection, damage to adjacent structures including the bladder, ureters, bowel, or major vessels, need for additional surgery, and risks from anesthesia. I explained that there is also a chance that the symptoms may not improve after surgical intervention. She voices understanding and wishes to proceed. Will proceed with LSC bilateral salpingectomy and possible left ovarian cystectomy, if cyst still present. decrease synthroid to 100. recheck 4-6w [email or web address] Not available 10/03/2022 14:01:03 11/07/2022 11/07/2022 s/p LSC salpingectomy normal post op exam Follow up WWE 3 mos [email or web address] Not available 11/07/2022 14:10:19 Plan of Treatment Reminders Order Date Submit Date Provider Last Modified By Organization Details Last Modified Time Details Appointments None recorded. Lab TSH, serum or plasma 2021 023 [facility] (Lab), [address], [place], [address], 14:58:06 Referral None recorded. Procedures None recorded. Surgeries None recorded. Imaging non-stress test 2021 [email or web address] [address], [address], [place], [address], 10:46:29 Medication Orders Synthroid 100 mcg tablet 2021 [facility] [facility], [place], [address], 10:56:32 Patient TargetsNo targets recorded. Patient InstructionsNo instructions recorded. Reason for Referral None Reported. Results Created Date Observation Date Name Description Value Unit Range Abnormal Flag Note LastModifiedBy Organization Detail LastModifiedTime 07/23/20 22 07/23/2022 TSH, REFLE X FREE T4 TSH 1.14 uIU/m L 0.30-5 .33 Not Available [facility] [address] [place], [address], 07/24/2022 05:10:43 07/30/2007/30/2022 CULTU RE: GROUP B STREP SCREE N, REFLE X SUSCE PTIBI LITY result report SEE RESULT S BELOW Test: Cultu re: Group B Strep , Refle x Susce ptibi lity ([facility] ) Speci men Sourc e: Vagin a/Rec mamta Speci men Type: Vagin al/Re ctal Speci men Date: 2021 2:57 PM Resul t Date: 2021 4:06 PM Resul t Statu s: Final resul t Abnor mal: No Resul ting Lab: [facility] [address] [facility] [place] [address] Tel: CULTU RE ----- ----- ----- --- No Group B strep isola kelsey at 2 days (monty ctive broth chandrakant peña t) Not Available [facility] [address] [facility] [address], [place], [address], 08/02/2022 17:09:07 09/26/20 22 09/26/2022 T4 FREE T4, free 1.03 NG/dL 0.60-1 .40 Not Available [facility] (Lab) [address] [facility], [place], [address], 09/27/2022 07:51:34 09/26/20 22 09/26/2022 TSH, REFLE X FREE T4 TSH 0.06 uIU/m L 0.30-5 .33 low Not Available [facility] (Lab) [address] [facility], [place], [address], 09/27/2022 07:51:34 09/26/20 22 09/26/2022 VITAM IN D, 25-OH (TOTA L D2/D3 ) vitamin D, 25-hydroxy, total 30.6 NG/mL 30.0-1 00.0 Sugge stive of Defic iency : <20 ng/mL Sugge stive of Insuf ficie ncy: 20-29 ng/mL Sugge stive of Suffi cienc y: 30-10 0 ng/mL Sugge stive of Toxic ity: >150 ng/mL Not Available [facility] (Lab) [address] [facility], [place], [address], 09/27/2022 07:51:34 07/03/20 22 07/03/2022 US, obste tric, follo w-up No observ ation record ed. [email or web address] Ayah [address], [place], [address], 07/04/2022 10:23:03 07/09/20 22 07/09/2022 non-s tress test No observ ation record ed. [email or web address] [place] [address], [place], [address], 07/09/2022 12:51:05 07/09/20 22 07/09/2022 US, obste tric, bioph ysica l profi le + non-s tress test No observ ation record ed. [email or web address] [address], [place], [address], 07/09/2022 16:30:22 07/09/20 22 07/09/2022 US, obste tric, bioph ysica l profi le + non-s tress test No observ ation record ed. CLIF Ayah [address], [place], [address], 07/12/2022 05:20:00 07/16/20 22 07/16/2022 non-s tress test No observ ation record ed. [email or web address] [place] [address], [place], [address], 07/16/2022 10:44:29 07/16/20 22 07/16/2022 US, obste tric, bioph ysica l profi le + non-s tress test No observ ation record ed. [email or web address] [address], [place], [address], 07/16/2022 13:52:14 07/16/20 22 07/16/2022 US, doppl er, umbil ical arter y veloc imetr y No observ ation record ed. [email or web address] [place] [address], [place], [address], 07/16/2022 13:52:24 07/16/20 22 07/16/2022 US, obste tric, bioph ysica l profi le + non-s tress test No observ ation record ed. [email or web address] [address], [place], [address], 05/09/2023 12:55:21 07/23/20 22 07/23/2022 non-s tress test No observ ation record ed. [email or web address] [address], [place], [address], 07/23/2022 11:31:56 07/23/20 22 07/23/2022 US, obste tric, bioph ysica l profi le + non-s tress test No observ ation record ed. [email or web address] [address], [place], [address], 07/23/2022 13:04:23 07/23/20 22 07/23/2022 US, doppl er, umbil ical arter y veloc imetr y No observ ation record ed. [email or web address] [place] [address], [place], [address], 07/23/2022 13:04:34 07/23/20 22 07/23/2022 US, obste tric, bioph ysica l profi le + non-s tress test No observ ation record ed. CLIF [address] [facility], [place], [address], 07/26/2022 06:36:18 07/30/20 22 07/30/2022 non-s tress test No observ ation record ed. [email or web address] [address], [place], [address], 07/30/2022 10:45:58 07/30/20 22 07/30/2022 US, obste tric, follo w-up No observ ation record ed. [email or web address] [address], [place], [address], 07/30/2022 13:20:40 07/30/20 22 07/30/2022 US, obste tric, bioph ysica l profi le + non-s tress test No observ ation record ed. [email or web address] [address], [place], [address], 07/30/2022 13:20:51 07/30/20 22 07/30/2022 US, doppl er, umbil ical arter y veloc imetr y No observ ation record ed. [email or web address] [place] [address], [place], [address], 07/30/2022 13:21:01 07/30/20 22 07/30/2022 US, obste tric, follo w-up No observ ation record ed. [email or web address] [address], [place], [address], 05/16/2023 12:51:11 Result Notes None recorded. Problems Name Problem SNOMED Code Status Onset Date Resolution Date Notes Provider Name and Address Organization Details Recorded Time Hypercho lesterol emia 69448237 Active 2021 Leslie Drew MD [address], [place], [address], [facility] 2 10:23:37 Hypothyr oidism 21858964 Active 2021 increase 150 mcg 4/27 rpt 4wks. Decrease d to 125mcg 7/29 - rpt 4wks Brittni brown, [facility] 3 15:09:56 Hypothyr oidism 38770931 Completed 2021 increase 150 mcg 4/27 rpt 4wks. Decrease d to 125mcg 7/29 - rpt 4wks Brittni brown, [facility] 3 15:09:55 Past pregnanc y history of section 866924369 Completed Brittni brown, [facility] 3 15:09:55 Past pregnanc y history of gestatio nal diabetes mellitus 449834490 Completed GDMA1 2016, 20w GCT - failed Brittni Bohnenstieh l null, [facility] 3 15:09:56 Rheumato id arthricristi s 19697719 Active asymptom atic currentl y Brittni Bohnenstieh l null, [facility] 3 15:09:56 Rheumato id arthricristi s 38336921 Completed asymptom atic currentl y Brittni Bohnenstieh l null, [facility] 3 15:09:56 Grand multipar ity with antenata l problem 545601886 Completed Brittni Bohnenstieh l null, [facility] 3 15:09:56 Advanced maternal age 889691657 Completed Brittni Bohnenstieh l null, [facility] 3 15:09:55 Cyst of left ovary [id number] Completed 6cm, simple Brittni Bohnenstieh l null, [facility] 3 15:09:56 Gestatio nal diabetes mellitus 35591330 Completed BS QID - antenata l testing @ 32wks Brittni Bohnenstieh l null, [facility] 3 15:09:55 growth restrict ion [id number] Completed 10%, to MFM, has history of 4-9 at 39w Brittni Bohnenstieh l null, [facility] 3 15:09:55 Problem Notes None recorded. Procedures Surgical History Date Name Laterality Status Provider Name and Address Organization Details Recorded Time 10/05/20 22 SALPINGECTOMY, LAPAROSCOPIC (SURG) completed Rochelle Vance [facility] 10/09/2022 11:56:09 11/14/19 22 Endometrial Biopsy completed Leslie Drew MD [address], [place], [address], [facility] 11/14/2021 12:50:50 11/14/19 22 endometrial biopsy completed Ivette Hilario [facility] 01/29/2022 18:44:51 11/03/19 22 Date of Last Pap Smear completed Ivette Hilario [facility] 01/30/2022 12:59:25 02/04/20 20 section completed Ivette Hilario [facility] 01/29/2022 18:45:07 Imaging Results Imaging Date Name Status LastModified by Organiz ation Details LastModified Time 07/03/2022 US, obstetric, follow-up completed madhu Poon [address], [place], [address], 07/04/2022 10:23:03 07/09/2022 non-stress test [email or web address] [place] [address], [place], [address], 07/09/2022 12:51:05 07/09/2022 US, obstetric, biophysical profile + non-stress test completed [email or web address] [place] [address], [place], [address], 07/09/2022 16:30:22 07/09/2022 US, obstetric, biophysical profile + non-stress test completed CLIF Poon [address], [place], [address], 07/12/2022 05:20:00 07/16/2022 non-stress test [email or web address] [place] [address] [address], [place], [address], 07/16/2022 10:44:29 07/16/2022 US, obstetric, biophysical profile + non-stress test completed [email or web address] [address], [place], [address], 07/16/2022 13:52:14 07/16/2022 US, doppler, umbilical artery velocimetry completed [email or web address] [address], [place], [address], 07/16/2022 13:52:24 07/16/2022 US, obstetric, biophysical profile + non-stress test completed [email or web address] [address], [place], [address], 05/09/2023 12:55:21 07/23/2022 non-stress test completed [email or web address] [address], [place], [address], 07/23/2022 11:31:56 07/23/2022 US, obstetric, biophysical profile + non-stress test completed [email or web address] [address], [place], [address], 07/23/2022 13:04:23 07/23/2022 US, doppler, umbilical artery velocimetry completed [email or web address] [address], [place], [address], 07/23/2022 13:04:34 07/23/2022 US, obstetric, biophysical profile + non-stress test completed CLIF [address], [place], [address], 07/26/2022 06:36:18 07/30/2022 non-stress test completed [email or web address] [address], [place], [address], 07/30/2022 10:45:58 07/30/2022 US, obstetric, follow-up completed [email or web address] [address], [place], [address], 07/30/2022 13:20:40 07/30/2022 US, obstetric, biophysical profile + non-stress test completed [email or web address] [address], [place], [address], 07/30/2022 13:20:51 07/30/2022 US, doppler, umbilical artery velocimetry completed [email or web address] [address], [place], [address], 07/30/2022 13:21:01 07/30/2022 US, obstetric, follow-up completed [email or web address] [address], [place], [address], 05/16/2023 12:51:11 Procedure Notes None recorded. Medical Equipment None Reported. Allergies No known drug allergies Medications Name Sig Start Date Stop Date Status Note LastModified by Organization Details LastModified Time azithromyci n 250 mg tablet TAKE 2 TABLETS BY MOUTH ON DAY 1, AND THEN TAKE 1 TABLET BY MOUTH ONCE A DAY ON DAY 2 THROUGH DAY 5 09/26 completed Not Available Not Available Not Available pravastatin 40 mg tablet 09/26 completed Not Available Not Available Not Available hydrocodone 5 mg-acetamin ophen 325 mg tablet TAKE 1 TABLET BY MOUTH EVERY 6 HOURS NEEDED FOR PAIN active Not Available Not Available No t Available metronidazo le 500 mg tablet Take 1 tablet twice a day by oral route for 7 days. 09/26 completed Not Available Not Available Not Available levothyroxi ne 100 mcg tablet Take 1 tablet by mouth once daily active Not Available Not Available No t Available Euthyrox 125 mcg tablet Take 1 tablet every day by oral route. 2021 active Not Available Not Available Not Avai lable Euthyrox 112 mcg tablet 04/25 completed Not Available Not Available Not Available OneTouch Ultra Test strips USE STRIP TO CHECK GLUCOSE 4 TIMES DAILY, FASTING, AND 1 HOUR AFTER BREAKFAST , LUNCH AND DINNER 09/26 completed Not Available Not Available Not Available Euthyrox 150 mcg tablet Take 1 tablet every day by oral route for 30 days. 09/26 completed Not Available Not Available Not Available cephalexin 500 mg capsule 03/20 completed Not Available Not Available Not Available tobramycin 0.3 % eye drops INSTILL 2 DROPS INTO AFFECTED EYE(S) EVERY 4 HOURS active Not Available Not Available No t Available cephalexin 500 mg tablet Take 1 tablet 3 times a day by oral route with meals for 7 days. 03/20 completed Not Available Not Available Not Available ergocalcife rol (vitamin D2) 1,250 mcg (50,000 unit) capsule TAKE 1 CAPSULE BY MOUTH ONCE A WEEK 09/26 completed Not Available Not Available Not Available Vitamin D active Not Available Not Rosa ilable Not Available fenofibrate nanocrystal lized 145 mg tablet 09/26 completed Not Available Not Available Not Available ferrous sulfate 324 mg (65 mg iron) tablet,hong yed release 09/26 completed Not Available Not Available Not Available FeroSul 325 mg (65 mg iron) tablet TAKE 1 TABLET BY MOUTH ONCE DAILY 09/26 completed Not Available Not Available Not Available 28 mg iron-800 mcg tablet TAKE 1 TABLET BY MOUTH ONCE DAILY active Not Available Not Available No t Available OneTouch Ultra2 Meter USE TO CHECK GLUCOSE 4 TIMES DAILY (FASTING IN THE MORNING AND THEN ONE HOUR AFTER BREAKFAST , LUNCH, AND DINNER) 09/26 completed Not Available Not Available Not Available OneTouch Delica Plus Lancet 33 gauge USE 1 TO CHECK GLUCOSE 4 TIMES DAILY 09/26 completed Not Available Not Available Not Available Vitals Date Recorded Body height Body mass index (BMI) Body weight Systolic blood pressure Diastolic blood pressure Provider Name and Address Organization Details Last Updated DateTime 07/30/2022 165.1 cm 31.3 kg/m2 62668.36 556 g 129 mm[Hg] 84 mm[Hg] Lita Cardoza [facility] 11:09:21 Date Recorded Body height Body mass index (BMI) Systolic blood pressure Diastolic blood pressure Provider Name and Address Organization Details Last Updated DateTime 09/26/2022 165.1 cm 29 kg/m2 137 mm[Hg] 85 mm[Hg] Tricia Hialrio [facility] 09/26/2022 10:50:26 Date Recorded Body weight Provider Name an d Address Organization Details Last Updated DateTime 09/26/2022 83835.49958 g Leslie Drew MD [address], [place], [address], [facility] 11/07/2022 14:07:15 Date Recorded Body height Body mass index (BMI) Systolic blood pressure Diastolic blood pressure Provider Name and Address Organization Details Last Updated DateTime 10/01/2022 165.1 cm 29.3 kg/m2 138 mm[Hg] 82 mm[Hg] [facility] 10/01/2022 10:51:23 Date Recorded Body weight Provider Name an d Address Organization Details Last Updated DateTime 10/01/2022 80288.86754 g Leslie Drew MD [address], [place], [address], [facility] 11/07/2022 14:07:15 Date Recorded Body height Body mass index (BMI) Systolic blood pressure Diastolic blood pressure Provider Name and Address Organization Details Last Updated DateTime 11/07/2022 165.1 cm 30.1 kg/m2 141 mm[Hg] 88 mm[Hg] [facility] 11/07/2022 12:07:07 Date Recorded Body weight Provider Name an d Address Organization Details Last Updated DateTime 11/07/2022 36867.52033 g Leslie Drew MD [address], [place], [address], [facility] 11/07/2022 14:07:15 Social History Question Answer Notes LastModified by Organizat ion Details LastModified Time Tobacco Smoking Status Never Smoker Ivette brown, [facility] 01/30/2022 13:06:27 Do You Have An Advance Directive? No [email or web address] Information n ot available 01/30/2022 What Is Your Level Of Alcohol Consumption? None Information not available 10/12/2021 Are You Blind Or Do You Have Difficulty Seeing? No [email or web address] Information n ot available 04/25/2022 What Is Your Level Of Caffeine Consumption? Occasional [email or web address] Information not available 01/30/2022 In The 14 Days Before Symptom Onset, Have You Had Close Contact With A Laboratory-confirm ed COVID-19 While That Case Was Ill? No [email or web address] Information n ot available 01/30/2022 In The 14 Days Before Symptom Onset, Have You Had Close Contact With A Person Who Is Under Investigation For COVID-19 While That Person Was Ill? No [email or web address] Information not available 01/30/2022 Have You Been To An Area Known To Be High Risk For COVID-19? No [email or web address] Information not available 01/30/2022 Are You Deaf Or Do You Have Serious Difficulty Hearing? No Information not available 01/30/2022 What Type Of Diet Are You Following? REGULAR [email or web address] Information n ot available 04/25/2022 What Is The Highest Grade Or Level Of School You Have Completed Or The Highest Degree You Have Received? [id number] [email or web address] Information not available 01/30/2022 Are There Any Guns Present In Your Home? No [email or web address] Information not available 01/30/2022 Do You Use Protection During Sex? No Information not available 01/30/2022 Do You Use Your Seat Belt Or Car Seat Routinely? Yes [email or web address] Information not available 01/30/2022 Do You Have Smoke And Carbon Monoxide Detectors In Your Home? Yes [email or web address] Information not available 01/30/2022 How Much Tobacco Do You Smoke? No [email or web address] Information not available 01/30/2022 Do You Use Any Illicit Or Recreational Drugs? No Information not available 10/12/2021 Do You Use Sunscreen Routinely? Yes [email or web address] Information not available 01/30/2022 Has Tobacco Cessation Counseling Been Provided? No [email or web address] Information not available 01/30/2022 Have You Used IV Drugs? No [email or web address] Information not available 01/30/2022 Do You Or Have You Ever Used Any Other Forms Of Tobacco Or Nicotine? No [email or web address] Information not available 01/30/2022 Sex: Unknown Functional Status Question Answer Note LastModified by Organizat ion Details LastModified Time Do you have difficulty walking or climbing stairs? No Information not available 04/25/2022 Are you able to walk? YESWOREST [email or web address] Information not available 01/30/2022 Are you able to care for yourself? Yes [email or web address] Information not available 04/25/2022 Do you have difficulty dressing or bathing? No [email or web address] Information not available 04/25/2022 What is your exercise level? Occasional [email or web address] Information not available 01/30/2022 Mental Status None recorded. Family History Relationship Description Onset Age of this Age Resolved Age Notes LastModified by Organization Details LastModified Time Father Diabetes mellitus [email or web address] Not available 2020 09:32:16 Mother Diabetes mellitus [email or web address] Not available 2020 09:32:16 Mother Hypercholest erolemia smcaley Not available 2020 09:32:27 Mother Hypertensive disorder [email or web address] Not available 2020 09:32:40 Mother Disorder of thyroid gland smcaley Not available 2020 09:32:54 Sister Disorder of thyroid gland [email or web address] Not available 2020 09:33:07 Brother Disorder of thyroid gland smcaley Not available 2020 09:33:10 Medical History Condition Response Allergies (Food, seasonal, environmental ) N Other Y Drug/Latex Allergies/Reactions N Breast Cancer N Blood Transfusion N Lung Disease N Dermatologic Disorders N Defects or Inherited Disease N Breast Problem N Gestational Diabetes N Hematologic disorders N Anesthesia Complications N History of STI N Deep Vein Thrombosis N Polycystic ovary syndrome N Anxiety Disorder N Autoimmune disease N Arthritis Y Polyps N Infertility N History of abnormal pap N Acid Reflux (GERD) N Cancer N Varicosities N Stroke N Neurologic/Epilepsy N Endometriosis N High Cholesterol Y Headaches N Fibromyalgia N Kidney Disease N Heart Problems N Thyroid Problems Y Kidney or Bladder Problems N GI Problems N Eating Disorder N Anemia Y Art (IVF or FET) N Psychiatric Illness N Ovarian Cancer N Diabetes N Pulmonary (TB, Asthma) N Hepatitis/Liver Disease N No Past Medical History N Eczema N Urinary Tract Infection N Abuse/Domestic Violence N Asthma N Trauma/Violence N Depression/ depression N Heart Disease N Pre-Eclampsia N Hypertension N Osteoporosis N Thrombophilias N Gynecological History Statement/Question Response Frequency of Cycle (Q days) 30 Date of LMP 11/26/2021 Sexually Active? Y Was last menstrual period normal N Age of first menstrual cycle 15 Date of Last Pap Smear 11/03/2021 Sexual Problems? N Duration of Flow (days) 7 Current Control Method None Age at First Child 20 Obstetrics History GPAL:G 7 P 7 0 0 7 Type Value Full Term 7 Living 7 Total 7 Past Encounters Encounter ID Performer Location Encounter Start Date Encounter Closed Date Diagnosis/Indication Diagnosis SNOMED-CT Code Diagnosis ICD10 Code Diagnosis Note [id number] Leslie Drew MD [facility] [address],[place] [address] 11/03/2021 10:08:07 11/07/2021 15:27:22 Menorrhagia 341771776 N92.0 [id number] [facility] [address] [place] [address] 11/09/2021 09:39:51 11/09/2021 10:28:08 Abnormal uterine bleeding 8626150561 9100 N93.9 [id number] Leslie Drew MD [place] [address] [place] [address] 11/14/2021 11:22:59 11/14/2021 13:10:32 Menorrhagia 352605946 N92.0 [id number] [facility] [address] [place] [address] 01/30/2022 12:20:32 01/31/2022 17:06:16 Amenorrhea 44844847 N91.2 [id number] Afsaneh Cortés [facility] [address] [place] [address] 01/30/2022 12:19:50 01/30/2022 13:05:21 [id number] Karly [facility] [address] [place] [address] 02/19/2022 11:07:14 02/19/2022 12:04:32 screening [id number] Z36.82 [id number] Leslie Drew MD [place] [address] [place] [address] 02/19/2022 11:08:46 02/21/2022 12:49:27 Routine care 344840981 Z34.91 Advanced m aternal age 654445576 O09.521 Cyst of left ovary 78923 67181 6804534 N83.202 Grand mult iparity with problem 258651062 O09.41 Past pregn naye history of section [id number] Z98.890 Past pregn naye history of gestational diabetes mellitus 018582456 Z86.32 Rheumatoid arthritis 698 56895 M06.9 Hypothyroidism 74959407 E03.9 [id number] Leslie Drew MD [facility] [address],[place] [address] 03/20/2022 11:26:36 03/20/2022 12:33:09 Advanced maternal age 301637747 O09.521 Grand mult iparity with problem 214983217 O09.41 Hypothyroidism 14221493 E03.9 [id number] Afsaneh Moo [facility] [address],[place] [address] 04/24/2022 15:39:10 04/24/2022 17:01:41 screening 768437120 Z36.3 [id number] [facility] [address],[place] [address] 04/25/2022 09:29:28 04/25/2022 10:07:00 Routine care [id number] Z34.90 [id number] Sinai Brown [facility] [address],[place] [address] 05/15/2022 14:08:30 05/15/2022 14:58:43 Gestational diabetes mellitus class A1 00248486 O24.410 Pt here for diet teaching. DA in to translate. Went over ideal ranges for FBS and pp BS. Went over carb counting and carb ranges for each meal/snack . Gave ideas for foods to eat for meals/snac ks. Discussed drink options and to avoid soda and juice. Also to limit milk intake. Told pt she can go online for meal options or to look up low carb meal recipes online for ideas as well. Pt is craving sweets and eats a lot of bananas and apples. Pt instructed on carbs in bananas and apples and to decrease/l imit amount of fruits and sweets she is eating. Pt hasn't picked up glucometer yet. Will call out supplies today. Told pt to check BS QID and adjusting diet to follow low carb diet to try to keep BS within normal range. Went over NST schedule with pt and will schd out once she is a little further along around 28 weeks. Pt to consistent ly check BS for her and baby's health. Pts questions were answered and pt verbalized understand ing. LEIGHA conley [id number] Silvia Silver [facility] [address],[place] [address] 05/23/2022 09:34:42 05/23/2022 10:33:24 Anemia 482287265 D64.9 Routine an tenatal care 550838840 Z34.90 [id number] Karly Palomo [facility] [address] [place] [address] 06/11/2022 09:59:46 06/11/2022 10:50:31 Gestational diabetes mellitus class A1 39357514 O24.410 O09.523 O99.283 Z3A.28 [id number] Leslie Drew MD [facility] [address] [place] [address] 06/11/2022 10:00:44 06/11/2022 13:53:08 growth restriction 23811934 O36.5999 Grand mult iparity with problem 000224193 O09.41 Advanced m aternal age 205982939 O09.521 Hypothyroidism 09063674 E03.9 [id number] Leslie Drew MD [facility] [address] [place] [address] 06/27/2022 14:05:38 06/27/2022 14:29:03 growth restriction 42865545 O36.5999 Advanced m aternal age 702643458 O09.521 Grand mult iparity with problem 906788417 O09.41 [id number] Yessi Marroquin [facility] [address] [place] [address] 07/09/2022 12:07:24 07/09/2022 12:52:49 Gestational diabetes mellitus class A1 08149880 O24.410 Pt here for diet teaching. DA in to translate. Went over ideal ranges for FBS and pp BS. Went over carb counting and carb ranges for each meal/snack . Gave ideas for foods to eat for meals/snac ks. Discussed drink options and to avoid soda and juice. Also to limit milk intake. Told pt she can go online for meal options or to look up low carb meal recipes online for ideas as well. Pt is craving sweets and eats a lot of bananas and apples. Pt instructed on carbs in bananas and apples and to decrease/l imit amount of fruits and sweets she is eating. Pt hasn't picked up glucometer yet. Will call out supplies today. Told pt to check BS QID and adjusting diet to follow low carb diet to try to keep BS within normal range. Went over NST schedule with pt and will schd out once she is a little further along around 28 weeks. Pt to consistent ly check BS for her and baby's health. Pts questions were answered and pt verbalized understand ing. LEIGHA conley [id number] [facility] [address],[place] [address] 07/09/2022 12:07:49 07/09/2022 14:16:51 Advanced maternal age 547698401 O09.523 O36.5930 O24.410 Z3A.32 [id number] Romero Meredith MD [facility] [address],[place] [address] 07/09/2022 12:08:05 07/09/2022 18:00:57 [id number] Yessi Marroquin [facility] [address] [place] [address] 07/16/2022 09:54:14 07/16/2022 12:16:51 Gestational diabetes mellitus class A1 57881054 O24.410 O09.523 O99.283 Z3A.28 [id number] [facility] [address],[place] [address] 07/16/2022 09:55:01 07/16/2022 12:15:18 Small for gestational age fetus 129955537 O36.5930 O09.523 O24.410 Z3A.33 [id number] Leslie Drew MD [facility] [address],[place] [address] 07/16/2022 09:55:19 07/16/2022 12:18:30 Grand multiparity with problem 426527180 O09.41 grow th restriction 23285658 O36.5999 Past pregn naye history of section 794416001 Z98.890 Past pregn naye history of gestational diabetes mellitus 307806234 Z86.32 Bacterial vaginosis 4197 33560 N76.0 [id number] [facility] [address],[place] [address] 07/23/2022 10:56:20 07/23/2022 12:41:30 Gestational diabetes mellitus class A1 32786427 O24.410 O09.523 O99.283 Z3A.28 [id number] Karly [facility] [address],[place] [address] 07/23/2022 10:57:00 07/23/2022 12:40:42 Poor growth affecting management 816610679 O36.5930 O24.410 O09.523 Z3A.34 [id number] Leslie Drew MD [facility] [address],[place] [address] 07/23/2022 10:57:19 07/24/2022 15:24:16 growth restriction 34465830 O36.5999 Grand mult iparity with problem 877019358 O09.41 Past pregn naye history of section 024888327 Z98.890 Past pregn naye history of gestational diabetes mellitus 324449536 Z86.32 Hypothyroidism 61468949 E03.9 [id number] [facility] [address],[place] [address] 07/30/2022 10:03:42 07/30/2022 10:46:28 Gestational diabetes mellitus class A1 56923180 O24.410 O09.523 O99.283 Z3A.28 [id number] Karly Palomo [facility] [address],[place] [address] 07/30/2022 10:03:59 07/30/2022 11:25:23 Poor growth affecting management 949598629 O36.5930 O09.523 O24.410 Z3A.35 [id number] Leslie Drew MD [facility] [address],[place] [address] 07/30/2022 10:04:34 07/30/2022 11:48:49 Advanced maternal age 416090528 O09.523 O36.5930 O24.410 Z3A.32 Grand mult iparity with problem 924829181 O09.41 Past pregn naye history of section 848060143 Z98.890 Gestationa l diabetes mellitus class A1 18565601 O24.410 O09.523 O99.283 Z3A.28 Sterilizat ion requested 665984160 Z30.2 [id number] Ivette Hilario [facility] [address],[place] [address] 09/26/2022 10:43:10 09/26/2022 15:58:34 care 682460028 Z39.2 Fatigue 25772137 R53.83 check labs [id number] Leslie Drew MD [facility] [address],[place] [address] 10/01/2022 10:40:31 10/02/2022 15:41:45 Hypothyroidism 45481065 E03.9 Preoperative state 24987 002 Z78.9 Sterilizat ion requested 278018346 Z30.2 Cyst of left ovary 84951 94466 4056532 N83.202 [id number] Leslie Drew MD [facility] [address],[place] [address] 11/07/2022 12:04:22 11/07/2022 14:38:19 Female sterilization 00959783 Z30.2 Health Concerns Section Related Observation LastModified by Organization Detai ls LastModified Time None Recorded Concern Status LastModified by Organization Details LastModified Time None Recorded Advance Directives Directive N: Payers Encounter Date Sequence Insurance Name Policy Number Policy Geiger Covered Member ID Geiger Member ID Guarantor Name 07/30/2022 1 [facility] (MEDICAID HMO) [id number] Debbie Villafuerte [id number] Debbie Villafuerte 09/26/2022 1 [facility] (MEDICAID HMO) [id number] Debbie Villafuerte [id number] Debbie Villafuerte 10/01/2022 1 [facility] (MEDICAID HMO) [id number] Debbie Villafuerte [id number] Debbie Villafuerte 11/07/2022 1 [facility] (MEDICAID HMO) [id number] 0003 Debbie Villafuerte [id number] Debbie Villafuerte Notes Date Note Type Note Provider Name and Address Organization Details Recorded Time 09/26/2022 text/html VisitReported bypatient.Quality:NS VD; successful Context:complication s of : GDM; complications of labor: none; complications: none; feeding choice: breast and bottle; good support from partner/family; resumed menstrual bleeding no Associated Symptoms:no abnormal bleeding; no vaginal discharge; no pelvic pain; no constipation; no fecal incontinence; no dysuria; no urinary incontinence Contraception Plan:permanent sterilizationNotes:anant atkinson at for translation doing well, but feeling very fatigued after this delivery Ivette brown, [facility] 09/26/2022 19:44:57 10/01/2022 text/html here for preop [facility] bilateral salpingectomy for sterilization. During had 6cm simple left ovarian cyst, no reimaging since. no pain. Leslie Drew MD [address], [place], [address], [facility] 10/03/2022 14:01:16 11/07/2022 text/html Follow up [facility]SC bisaplingectomy for sterilization on 10/05. No problems. healed well, no pain. no cyst was present so no cystectomy was done.pap last 10/2021 Lelsie Drew MD [address], [place], [address], [facility] 11/07/2022 14:10:34 OBGyn Episode Ob Episode Information Episode Created Date Number of Fetuses Patient Bloodtype Patient rh Status Prepregnancy Weight lbs Domestic Partner Domestic Partner Phone Father Name Order Tracer Status 10/12/20 21 1 CLOSED Fetus Data First Name Last Name Admitted to NICU Weight (g) Sex Living Outcome Pediatric Complications Fetus ID Race Codes Race Delivery Type 3175.14 4 M [id number] Vaginal Delivery Pablo Calculation Initial Pablo Date Initial Exam Date Initial Exam Provider Initial Ultrasound Date Last Menstrual Period Date Ultra Sound Weeks Gestation 0 Eighteen To Twenty Week Pablo Update Ultra Sound Date Fundal Height At Umbil Quickening Date Ultra Sound Latest Weeks Gestation Final Pablo Confirmed By Final Pablo Confirmed Date Final Pablo Date Ultra Sound Latest Days Gestation 0 0 Menstrual History Last Menstrual Date Menses Monthly On Bcp Conception Prior Menses Frequency Hcg Plus Date Menarche Onset Age Delivery Information Delivery Date Delivery Type Labor Anesthesia Weeks Gestation Incision Type Labor Labor Length Hrs Delivered By Post Complications Tubal Sterilization Discharge Date Comments 9 Discharge Information Feeding Method Contraceptive Method Maternal HG B and HCT Levels Ob Episode Information Episode Created Date Number of Fetuses Patient Bloodtype Patient rh Status Prepregnancy Weight lbs Domestic Partner Domestic Partner Phone Father Name Order Tracer Status 10/12/20 21 1 CLOSED Fetus Data First Name Last Name Admitted to NICU Weight (g) Sex Living Outcome Pediatric Complications Fetus ID Race Codes Race Delivery Type 2721.55 2 F [id number] Vaginal Delivery Pablo Calculation Initial Pablo Date Initial Exam Date Initial Exam Provider Initial Ultrasound Date Last Menstrual Period Date Ultra Sound Weeks Gestation 0 Eighteen To Twenty Week Pablo Update Ultra Sound Date Fundal Height At Umbil Quickening Date Ultra Sound Latest Weeks Gestation Final [place] Confirmed By Final Pablo Confirmed Date Final Pablo Date Ultra Sound Latest Days Gestation 0 0 Menstrual History Last Menstrual Date Menses Monthly On Bcp Conception Prior Menses Frequency Hcg Plus Date Menarche Onset Age Delivery Information Delivery Date Delivery Type Labor Anesthesia Weeks Gestation Incision Type Labor Labor Length Hrs Delivered By Post Complications Tubal Sterilization Discharge Date Comments 3 Discharge Information Feeding Method Contraceptive Method Maternal HG B and HCT Levels Ob Episode Information Episode Created Date Number of Fetuses Patient Bloodtype Patient rh Status Prepregnancy Weight lbs Domestic Partner Domestic Partner Phone Father Name Order Tracer Status 10/12/20 21 1 CLOSED Fetus Data First Name Last Name Admitted to NICU Weight (g) Sex Living Outcome Pediatric Complications Fetus ID Race Codes Race Delivery Type 2721.55 2 M [id number] Vaginal Delivery Pablo Calculation Initial Pablo Date Initial Exam Date Initial Exam Provider Initial Ultrasound Date Last Menstrual Period Date Ultra Sound Weeks Gestation 0 Eighteen To Twenty Week Pablo Update Ultra Sound Date Fundal Height At Umbil Quickening Date Ultra Sound Latest Weeks Gestation Final Pablo Confirmed By Final Pablo Confirmed Date Final Pablo Date Ultra Sound Latest Days Gestation 0 0 Menstrual History Last Menstrual Date Menses Monthly On Bcp Conception Prior Menses Frequency Hcg Plus Date Menarche Onset Age Delivery Information Delivery Date Delivery Type Labor Anesthesia Weeks Gestation Incision Type Labor Labor Length Hrs Delivered By Post Complications Tubal Sterilization Discharge Date Comments 2 Discharge Information Feeding Method Contraceptive Method Maternal HG B and HCT Levels Ob Episode Information Episode Created Date Number of Fetuses Patient Bloodtype Patient rh Status Prepregnancy Weight lbs Domestic Partner Domestic Partner Phone Father Name Order Tracer Status 10/12/20 21 1 CLOSED Fetus Data First Name Last Name Admitted to NICU Weight (g) Sex Living Outcome Pediatric Complications Fetus ID Race Codes Race Delivery Type 9.28 6704 M [id number] Primary Pablo Calculation Initial Pablo Date Initial Exam Date Initial Exam Provider Initial Ultrasound Date Last Menstrual Period Date Ultra Sound Weeks Gestation 0 Eighteen To Twenty Week Pablo Update Ultra Sound Date Fundal Height At Umbil Quickening Date Ultra Sound Latest Weeks Gestation Final Pablo Confirmed By Final Pablo Confirmed Date Final Pablo Date Ultra Sound Latest Days Gestation 0 0 Menstrual History Last Menstrual Date Menses Monthly On Bcp Conception Prior Menses Frequency Hcg Plus Date Menarche Onset Age Delivery Information Delivery Date Delivery Type Labor Anesthesia Weeks Gestation Incision Type Labor Labor Length Hrs Delivered By Post Complications Tubal Sterilization Discharge Date Comments 0 Discharge Information Feeding Method Contraceptive Method Maternal HG B and HCT Levels Ob Episode Information Episode Created Date Number of Fetuses Patient Bloodtype Patient rh Status Prepregnancy Weight lbs Domestic Partner Domestic Partner Phone Father Name Order Tracer Status 10/12/20 21 1 CLOSED Fetus Data First Name Last Name Admitted to NICU Weight (g) Sex Living Outcome Pediatric Complications Fetus ID Race Codes Race Delivery Type 2267.96 M [id number] Vaginal Delivery Pablo Calculation Initial Pablo Date Initial Exam Date Initial Exam Provider Initial Ultrasound Date Last Menstrual Period Date Ultra Sound Weeks Gestation 0 Eighteen To Twenty Week Pablo Update Ultra Sound Date Fundal Height At Umbil Quickening Date Ultra Sound Latest Weeks Gestation Final Pablo Confirmed By Final Pablo Confirmed Date Final Pablo Date Ultra Sound Latest Days Gestation 0 0 Menstrual History Last Menstrual Date Menses Monthly On Bcp Conception Prior Menses Frequency Hcg Plus Date Menarche Onset Age Delivery Information Delivery Date Delivery Type Labor Anesthesia Weeks Gestation Incision Type Labor Labor Length Hrs Delivered By Post Complications Tubal Sterilization Discharge Date Comments 4 Discharge Information Feeding Method Contraceptive Method Maternal HG B and HCT Levels Ob Episode Information Episode Created Date Number of Fetuses Patient Bloodtype Patient rh Status Prepregnancy Weight lbs Domestic Partner Domestic Partner Phone Father Name Order Tracer Status 02/20/20 22 1 AB Positive 177 CLOSED Fetus Data First Name Last Name Admitted to NICU Weight (g) Sex Living Outcome Pediatric Complications Fetus ID Race Codes Race Delivery Type 2579.80 45 M true Full Term [id number] Vaginal Delivery Problems Problem Notes need Zhen to discuss vs R CS next visit. tubal? [facility] u/s, consult and DT 06/27 1:45 Problem Name Start Date End Date Resolution Snomed Code Not e Past history of section 675139858 Past history of gestational diabetes mellitus 601479846 GDMA1 2016, 20w GCT - failed Cyst of left ovary [id number] 490977 6cm, simple Rheumatoid arthritis 65111962 asymptomatic currently Grand multiparity with problem 808501286 Advanced maternal age 292097679 Hypothyroidism 11/03/2021 34790310 incr ease 150 mcg 02/21 rpt 4wks. Decreased to 125mcg 05/25 - rpt 4wks Gestational diabetes mellitus 92511125 BS QID - testing @ 32wks growth restriction 44818570 10%, to mauro GREENE history of 4-9 at 39w Pablo Calculation Initial Pablo Date Initial Exam Date Initial Exam Provider Initial Ultrasound Date Last Menstrual Period Date Ultra Sound Weeks Gestation 09/02/2022 02/19/2022 01/30/2022 11/26/2021 9 Eighteen To Twenty Week Pablo Update Ultra Sound Date Fundal Height At Umbil Quickening Date Ultra Sound Latest Weeks Gestation Final Pablo Confirmed By Final Pablo Confirmed Date Final Pablo Date Ultra Sound Latest Days Gestation 0 [email or web address] 02/19/2022 09/02/20 22 0 Pre-katina Flowsheet Flowsheet Date 02/19/2022 Alfaro Score Blood Edema Fundus Height Fundus Units Glucose Ketones Leukocytes Nitrite Labor Signs Protein Cervic Dilation Cervic Effacement Cervic Station Type Weight in lbs Pre/Post Dialysis Refused BP Diastolic BP Location Tested BP Systolic BP Type Fetus Heart Rate Present Fetus Movement Comments Flowsheet Date 02/19/2022 Alfaro Score Blood Edema Fundus Height Fundus Units Glucose Ketones Leukocytes Nitrite Labor Signs Protein Cervic Dilation Cervic Effacement Cervic Station neg none none trace Type Weight in lbs Pre/Post Dialysis Refused Weight 179.482270405760 BP Diastolic BP Location Tested BP Systolic BP Type 76 129 Fetus Heart Rate Present A 160 Fetus Movement A No Comments Debbie is a 41yo at 12.1 for care. complicated by grand multiparity, AMA, RA (no sx currently), hypothyroid (managed usually by endo), and prior CS. SHe is uncertain TOLAC vs R CS because may want CS with tubal. Labs today. Declines NIPT because had a false pos in prior . We discussed the moderately sized ovarian cyst- torsion precautions given. Repeat TSH today. Will start ASA. h/o GDM in her last - early GCT. Flowsheet Date 03/20/2022 Alfaro Score Blood Edema Fundus Height Fundus Units Glucose Ketones Leukocytes Nitrite Labor Signs Protein Cervic Dilation Cervic Effacement Cervic Station neg trace none trace Type Weight in lbs Pre/Post Dialysis Refused Weight 180.282204924639 BP Diastolic BP Location Tested BP Systolic BP Type 75 117 Fetus Heart Rate Present A 155 Fetus Movement A No Comments Doing fine. No FM yet. Repea t TSH today. Gender US tomorrow. UNable to doppler FHT. ON US, viable 15w6d. Anatomy US next. Flowsheet Date 04/24/2022 Alfaro Score Blood Edema Fundus Height Fundus Units Glucose Ketones Leukocytes Nitrite Labor Signs Protein Cervic Dilation Cervic Effacement Cervic Station Type Weight in lbs Pre/Post Dialysis Refused BP Diastolic BP Location Tested BP Systolic BP Type Fetus Heart Rate Present Fetus Movement Comments Flowsheet Date 04/25/2022 Alfaro Score Blood Edema Fundus Height Fundus Units Glucose Ketones Leukocytes Nitrite Labor Signs Protein Cervic Dilation Cervic Effacement Cervic Station neg none none trace Type Weight in lbs Pre/Post Dialysis Refused Weight 183.019540809253 BP Diastolic BP Location Tested BP Systolic BP Type 72 114 Fetus Heart Rate Present A 144 Fetus Movement A Yes Comments patient states that having s ome cramping. discussed maternity belt at next visit, anatomy reviewed and wnl, early gct today Flowsheet Date 05/15/2022 Alfaro Score Blood Edema Fundus Height Fundus Units Glucose Ketones Leukocytes Nitrite Labor Signs Protein Cervic Dilation Cervic Effacement Cervic Station Type Weight in lbs Pre/Post Dialysis Refused BP Diastolic BP Location Tested BP Systolic BP Type Fetus Heart Rate Present Fetus Movement Comments Flowsheet Date 05/23/2022 Alfaro Score Blood Edema Fundus Height Fundus Units Glucose Ketones Leukocytes Nitrite Labor Signs Protein Cervic Dilation Cervic Effacement Cervic Station neg none none trace Type Weight in lbs Pre/Post Dialysis Refused Weight 185.621120244878 BP Diastolic BP Location Tested BP Systolic BP Type 79 121 Fetus Heart Rate Present Fetus Movement A Yes Comments doing well just started charly rding blood sugar one fasting of 107 will reevaluate next week, get maternity support belt,check tsh and cbc today, zhen at bs for translation, precautions reviewed plan growth us next visit Flowsheet Date 06/11/2022 Alfaro Score Blood Edema Fundus Height Fundus Units Glucose Ketones Leukocytes Nitrite Labor Signs Protein Cervic Dilation Cervic Effacement Cervic Station Type Weight in lbs Pre/Post Dialysis Refused BP Diastolic BP Location Tested BP Systolic BP Type Fetus Heart Rate Present Fetus Movement Comments Flowsheet Date 06/11/2022 Alfaro Score Blood Edema Fundus Height Fundus Units Glucose Ketones Leukocytes Nitrite Labor Signs Protein Cervic Dilation Cervic Effacement Cervic Station neg none 26 none trace Type Weight in lbs Pre/Post Dialysis Refused Weight 184.294239157440 BP Diastolic BP Location Tested BP Systolic BP Type 74 110 Fetus Heart Rate Present A 135 Fetus Movement A Yes Comments Doing well. BS good except w hen had cereal twice. Doing TSH and H/H today. US today EFFW 10%. Normal fluid and doppler, BPP 8/8. She has a history of IUGR babies, smallest was 4-9 at 39w, likely just constitutional, but will get MFM US and consult. Flowsheet Date 06/27/2022 Alfaro Score Blood Edema Fundus Height Fundus Units Glucose Ketones Leukocytes Nitrite Labor Signs Protein Cervic Dilation Cervic Effacement Cervic Station neg none 28 none trace Type Weight in lbs Pre/Post Dialysis Refused Weight 186.810861303936 BP Diastolic BP Location Tested BP Systolic BP Type 79 118 Fetus Heart Rate Present A 145 Fetus Movement A Yes Comments Doing fine. Going today to [facility] for IUGr. BS perfect. testing scheduled. Flowsheet Date 07/03/2022 Alfaro Score Blood Edema Fundus Height Fundus Units Glucose Ketones Leukocytes Nitrite Labor Signs Protein Cervic Dilation Cervic Effacement Cervic Station Type Weight in lbs Pre/Post Dialysis Refused BP Diastolic BP Location Tested BP Systolic BP Type Fetus Heart Rate Present Fetus Movement Comments Flowsheet Date 07/09/2022 Alfaro Score Blood Edema Fundus Height Fundus Units Glucose Ketones Leukocytes Nitrite Labor Signs Protein Cervic Dilation Cervic Effacement Cervic Station Type Weight in lbs Pre/Post Dialysis Refused BP Diastolic BP Location Tested BP Systolic BP Type Fetus Heart Rate Present Fetus Movement Comments Flowsheet Date 07/09/2022 Alfaro Score Blood Edema Fundus Height Fundus Units Glucose Ketones Leukocytes Nitrite Labor Signs Protein Cervic Dilation Cervic Effacement Cervic Station Type Weight in lbs Pre/Post Dialysis Refused BP Diastolic BP Location Tested BP Systolic BP Type Fetus Heart Rate Present Fetus Movement Comments Flowsheet Date 07/09/2022 Alfaro Score Blood Edema Fundus Height Fundus Units Glucose Ketones Leukocytes Nitrite Labor Signs Protein Cervic Dilation Cervic Effacement Cervic Station Type Weight in lbs Pre/Post Dialysis Refused BP Diastolic BP Location Tested BP Systolic BP Type Fetus Heart Rate Present Fetus Movement Comments Pt here for NST/BPP, but SB out of office and AD isn't able to see pt r/t surgery. BP WNL. BS reviewed. Overall WNL - 1 elevated fasting. DA will tell pt to monitor fasting level and if she has multiple elevated fasting levels during the week to call. Pt has no complaints, but is worried about gaining too much weight. Has only gained 12 pounds so far and DA will inform pt this is normal. LEIGHA conley Flowsheet Date 07/16/2022 Alfaro Score Blood Edema Fundus Height Fundus Units Glucose Ketones Leukocytes Nitrite Labor Signs Protein Cervic Dilation Cervic Effacement Cervic Station Type Weight in lbs Pre/Post Dialysis Refused BP Diastolic BP Location Tested BP Systolic BP Type Fetus Heart Rate Present Fetus Movement Comments Flowsheet Date 07/16/2022 Alfaro Score Blood Edema Fundus Height Fundus Units Glucose Ketones Leukocytes Nitrite Labor Signs Protein Cervic Dilation Cervic Effacement Cervic Station Type Weight in lbs Pre/Post Dialysis Refused BP Diastolic BP Location Tested BP Systolic BP Type Fetus Heart Rate Present Fetus Movement Comments Flowsheet Date 07/16/2022 Alfaro Score Blood Edema Fundus Height Fundus Units Glucose Ketones Leukocytes Nitrite Labor Signs Protein Cervic Dilation Cervic Effacement Cervic Station neg trace none trace Type Weight in lbs Pre/Post Dialysis Refused Weight 186.425092940881 BP Diastolic BP Location Tested BP Systolic BP Type 75 114 Fetus Heart Rate Present A 150 Fetus Movement A Yes Comments Doing fine. NST was nonreact laura- she has not eaten yet today. Discussed important to eat before monitoring. BPP 8/8, normal dopplers, ABBY 20. BS perfect except one fasting of 96. Repeat TSH next visit. Also need to determine plan of delivery next visit- TOLAC vs R CS with tubal. She complains of fishy vaginal odor for 1 mo. flagyl for BV. FU weekly. Flowsheet Date 07/23/2022 Alfaro Score Blood Edema Fundus Height Fundus Units Glucose Ketones Leukocytes Nitrite Labor Signs Protein Cervic Dilation Cervic Effacement Cervic Station Type Weight in lbs Pre/Post Dialysis Refused BP Diastolic BP Location Tested BP Systolic BP Type Fetus Heart Rate Present Fetus Movement Comments Flowsheet Date 07/23/2022 Alfaro Score Blood Edema Fundus Height Fundus Units Glucose Ketones Leukocytes Nitrite Labor Signs Protein Cervic Dilation Cervic Effacement Cervic Station Type Weight in lbs Pre/Post Dialysis Refused BP Diastolic BP Location Tested BP Systolic BP Type Fetus Heart Rate Present Fetus Movement Comments Flowsheet Date 07/23/2022 Alfaro Score Blood Edema Fundus Height Fundus Units Glucose Ketones Leukocytes Nitrite Labor Signs Protein Cervic Dilation Cervic Effacement Cervic Station neg none 35 none trace Type Weight in lbs Pre/Post Dialysis Refused Weight 191.647197635636 BP Diastolic BP Location Tested BP Systolic BP Type 81 122 Fetus Heart Rate Present A 155 Fetus Movement A Yes Comments Doing ok. left eye itchy, wi ll try allergy eye drops. Discussed TOLAC vs R CS with tubal in depth, discussed RBA. She does want a tubal, but prefers a vaginal delivery but is concerned about the risks. she will discuss with her and decide by next visit. Sign tubal paper next visit regardless. TSH today. 4 of last 5 days fastings elevated. pp all fine. Is having a bedtime snack. Will increase exercise. May need insulin at HS, will give it one more week. US today normal dopplers, BPP 08/06. Flowsheet Date 07/30/2022 Alfaro Score Blood Edema Fundus Height Fundus Units Glucose Ketones Leukocytes Nitrite Labor Signs Protein Cervic Dilation Cervic Effacement Cervic Station Type Weight in lbs Pre/Post Dialysis Refused BP Diastolic BP Location Tested BP Systolic BP Type Fetus Heart Rate Present Fetus Movement Comments Flowsheet Date 07/30/2022 Alfaro Score Blood Edema Fundus Height Fundus Units Glucose Ketones Leukocytes Nitrite Labor Signs Protein Cervic Dilation Cervic Effacement Cervic Station Type Weight in lbs Pre/Post Dialysis Refused BP Diastolic BP Location Tested BP Systolic BP Type Fetus Heart Rate Present Fetus Movement Comments Flowsheet Date 07/30/2022 Alfaro Score Blood Edema Fundus Height Fundus Units Glucose Ketones Leukocytes Nitrite Labor Signs Protein Cervic Dilation Cervic Effacement Cervic Station neg trace none trace Type Weight in lbs Pre/Post Dialysis Refused Weight 188.999741705672 BP Diastolic BP Location Tested BP Systolic BP Type 84 129 Fetus Heart Rate Present A 135 Fetus Movement A Yes Comments Debbie's mother suddenl y and she is traveling to [place] for the next 3 weeks. Her BS are perfect except one. US today 12%, normal dopplers, normal fluid. GBS done today. Tubal papers signed. She desires R CS with salpingectomy, will schedule either 08/27 or 08/28. We discussed travel precautions, will send records, kick counts daily, weekly NSTs at a local hospital that does ob, call us if BS worsening. SUpport given, questions answered, all done with Zhen interpreting. FU as soon as she returns. Flowsheet Date 09/26/2022 Alfaro Score Blood Edema Fundus Height Fundus Units Glucose Ketones Leukocytes Nitrite Labor Signs Protein Cervic Dilation Cervic Effacement Cervic Station Type Weight in lbs Pre/Post Dialysis Refused Weight 174.71688041171 BP Diastolic BP Location Tested BP Systolic BP Type 85 137 Fetus Heart Rate Present Fetus Movement Comments Flowsheet Date 10/01/2022 Alfaro Score Blood Edema Fundus Height Fundus Units Glucose Ketones Leukocytes Nitrite Labor Signs Protein Cervic Dilation Cervic Effacement Cervic Station Type Weight in lbs Pre/Post Dialysis Refused Weight 176.436877640945 BP Diastolic BP Location Tested BP Systolic BP Type 82 138 Fetus Heart Rate Present Fetus Movement Comments Flowsheet Date 10/05/2022 Alfaro Score Blood Edema Fundus Height Fundus Units Glucose Ketones Leukocytes Nitrite Labor Signs Protein Cervic Dilation Cervic Effacement Cervic Station Type Weight in lbs Pre/Post Dialysis Refused BP Diastolic BP Location Tested BP Systolic BP Type Fetus Heart Rate Present Fetus Movement Comments Flowsheet Date 11/07/2022 Alfaro Score Blood Edema Fundus Height Fundus Units Glucose Ketones Leukocytes Nitrite Labor Signs Protein Cervic Dilation Cervic Effacement Cervic Station Type Weight in lbs Pre/Post Dialysis Refused Weight 181.982493543283 BP Diastolic BP Location Tested BP Systolic BP Type 88 141 Fetus Heart Rate Present Fetus Movement Comments Menstrual History Last Menstrual Date Menses Monthly On Bcp Conception Prior Menses Frequency Hcg Plus Date Menarche Onset Age 0111/26/2021 Genetic Screening And Infection History Question Response Note Mental Retardation/Autism false Patient's Age Will Be 35 Years Or Older At Estim ated Date of Delivery true Thalassemia (Croatian, Yi, Mediterranean, Or Background): MCV < 80 false Neural Tube Defect (Meningomyelocele, Spina Bifi da, Or Anencephaly) false Congenital Heart Defect false Down Syndrome false Garry-Sachs (eg, Anglican, Cajun, South Sudanese-Henderson) f alse Deysi Disease false Sickle Cell Disease Or Trait () false Hemophilia Or Other Blood Disorders false Muscular Dystrophy false Cystic Fibrosis false [place]'s Chorea false Intellectual Disability/Autism false If Yes, Was Person Tested For Fragile X? false Other Inherited Genetic Or Chromosomal Disorder false Maternal Metabolic Disorder (eg, Type 1 Diabetes , PKU) false Patient Or Baby's Father Had A Child With Defects Not Listed Above false Recurrent Loss, Or A Stillbirth false Medications (including Suppl ements, Vitamins, Herbs, OTC Drugs), Illicit/Recreational Drugs, Alcohol false If Yes, Agent(s) And Strength/Dosage false Any Other Genetic History false Live With Someone With TB Or Exposed To TB false Patient Or Partner Has History Of Genital Herpes false Rash Or Viral Illness Since Last Menstrual Perio d false History Of STD, Gonorrhea, Chlamydia, HPV, Syphi lis false Other Infection History false History of HIV false History of Hepatitis false Prior GBS-infected child false Hemoglobinopathy Or Carrier false Other Structural Defect false Recent Travel History Outside of Country false Delivery Information Delivery Date Delivery Type Labor Anesthesia Weeks Gestation Incision Type Labor Labor Length Hrs Delivered By Post Complications Tubal Sterilization Discharge Date Comments 2 Augmen kelsey None 38.2 false Eitzen, Silvia CNM TOLAC, AMA, GDM & IUGR Discharge Information Feeding Method Contraceptive Method Maternal HG B and HCT Levels Breast Ob Episode Information Episode Created Date Number of Fetuses Patient Bloodtype Patient rh Status Prepregnancy Weight lbs Domestic Partner Domestic Partner Phone Father Name Order Tracer Status 10/12/20 21 1 CLOSED Fetus Data First Name Last Name Admitted to NICU Weight (g) Sex Living Outcome Pediatric Complications Fetus ID Race Codes Race Delivery Type 2721.55 2 F [id number] Vaginal Delivery Pablo Calculation Initial Pablo Date Initial Exam Date Initial Exam Provider Initial Ultrasound Date Last Menstrual Period Date Ultra Sound Weeks Gestation 0 Eighteen To Twenty Week Pablo Update Ultra Sound Date Fundal Height At Umbil Quickening Date Ultra Sound Latest Weeks Gestation Final Pablo Confirmed By Final Pablo Confirmed Date Final Pablo Date Ultra Sound Latest Days Gestation 0 0 Menstrual History Last Menstrual Date Menses Monthly On Bcp Conception Prior Menses Frequency Hcg Plus Date Menarche Onset Age Delivery Information Delivery Date Delivery Type Labor Anesthesia Weeks Gestation Incision Type Labor Labor Length Hrs Delivered By Post Complications Tubal Sterilization Discharge Date Comments 1 Discharge Information Feeding Method Contraceptive Method Maternal HG B and HCT Levels
--- OUTSIDE RECORDS SUMMARY | 2025-01-10 09:17 | XMS_ITS | Patient Health Summary ---
Author Organization [facility] Address [address] [place] [address] Care Team Providers Care Cut Roll Machine Offbearer Name Role Phone Fabricio Guadarrama MD Primary Care Provider [phone] Note from [facility],non-owned Affiliates and Associated Physician Practices is amultiple site organization consisting of ambulatory clinics and hospital sitesin [place], [place], [place] and [place]. This disclosure is being madepursuant to the Care Everywhere program and may not contain all information available regarding this patient. Last updated 18.[facility] Allergies No known active allergies Medications * Be aware that medications may not be up to date on this document. Alwaysverify current medications with the patient. * OneTouch Delica Lancets 33G MISC(Started 06/27/2022) Use 1 Each 4 times daily 3 refills by 06/27/2023 * blood glucose (OneTouch Verio) test strip(Started 06/27/2022) Use 1 (one) strip 4 times daily 3 refills by 06/27/2023 * levothyroxine (Synthroid) 125 MCG tablet Take 125 mcg by mouth daily before breakfast * Vit-DSS-Fe Fum-FA ( vitamin with iron) tablet Take 1 tablet by mouth once daily Active Problems Problem Noted Date Diagnosed Date Rheumatoid factor positive 12/04/2021 Social History Tobacco Use Types Packs/Day Years [...] 36.1 C (97 F) 12/04/2021 1:26 PM PSYCHIATRY TEACHER Respiratory Rate 16 12/04/2021 1:26 PM PSYCHIATRY TEACHER Oxygen Saturation 99% 06/27/2022 2:49 PM CDT Inhaled Oxygen Concentration - - Weight 84.1 kg (185 lb 6.4 oz) 06/27/2022 3:48 P M CDT Height 165.1 cm (5' 5 ) 06/27/2022 3:48 PM CDT Body Mass Index 30.85 06/27/2022 3:48 PM CDT Procedures * CORNEAL TOPOGRAPHY UNI/BI(Performed 10/13/2024) Performed for Irregular astigmatism of both eyes * SONOGRAM - COMPLETE(Performed 06/27/2022) Performed for Antepartum multigravida of advanced maternal age ([facility]), Diet controlled gestational diabetes mellitus (GDM) in third trimester ([facility]), Hypothyroid in , antepartum ([facility]), Previous baby with growth restriction, 30 weeks gestation of ([facility]), Encounter for ultrasound to assess growth ([facility]) * CYCLIC CITRUL PEPTIDE ANTIBODY IGG/IGA ([facility])(Performed 12/04/2021) Performed for Rheumatoid factor positive * HEPATITIS C ANTIBODY(Performed 12/04/2021) Performed for Rheumatoid factor positive Results * CORNEAL TOPOGRAPHY UNI/BI (10/13/2024 2:07 PM PSYCHIATRY TEACHER) Anatomical Region Laterality Modality Head External-Camera Photography Narrative 10/13/2024 2:21 PM PSYCHIATRY TEACHER Images from the original result were not included. OD: high amounts of WTR astigmatism, no concerns for keratoconus OS: high amounts of WTR astigmatism, no concerns for keratoconus Willian Casanova OD OPHTHALMOLOGY SCHED ORD W PACS * SONOGRAM - COMPLETE (06/27/2022 2:05 PM CDT) Anatomical Region Laterality Modality Other 06/27/2022 2:05 PM CDT Narrative 06/27/2022 4:40 PM CDT SM [facility] PHONE: FAX: Pat. Name: BOGN ROSALES Pat. No: [id number] Study Date: 06/27/2022 2:05pm , Age: 12 1980, 41 Pregnancies: 7, Para 6 Height: 65 in Weight: 177 lb LMP: 11/27/2021 GA by LMP: 30w2d GA by US: 28w6d JAYMIE: 09/13/2022 GA Selected: 30w2d (LMP) JAYMIE: 09/03/2022 Referring MD: Leslie Kaur MD Start Up Specialist: Janet Whitman RDMS CPT4: 63153,[id number] BMI: 29.45 Hist/Ind: Hypothyroidism AMA G6: SGA and GDM MEASUREMENTS & AGE GROWTH EVALUATION Measurement GA Range Srce %for GA Ratios ----- ---- ------- BPD 7.0 cm 28w2d (57k4j-22l8s) Hadl BPD 1% FL/BPD 0.75 (0.71 - 0.87) HC 26.9 cm 29w2d (79v6a-04l5a) Hadl HC 3% FL/AC 0.21 (0.20 - 0.24) AC 25.6 cm 29w6d (91j1h-17l4k) Hadl AC 30% HC/AC 1.05 (0.97 - 1.16) FL 5.3 cm 28w0d (57g4b-63i6j) Hadl FL 1% CI 0.72 (0.70 - 0.86) HL 4.9 cm 28w6d (42q5w-62x8d) Andrea HL 27% GA for sonogram 28w6d (32k6f-51p9g) Weight Estimate: based on (BPD,HC,AC,FL) Avg Weight: 1330 gm (1136-1524gm) Had : 2lbs, 14oz Normal: 1617 gm (1212-2021gm) Had Wt% 9% for 30w2d Heart Rate: 153 bpm Amniotic Fluid Index: 18.0cm (08.9-23.5) Q1: 4.3cm Q2: 5.3cm Q3: 4.0cm Q4: 4.4cm Biophysical Profile: 06/04 Breathin Tone: 2 Movement: 2 AFV: 2 EVAL, PLACENTA Presentation: cephalic Umbilical Cord: 3 Vessels Placenta: anterior Heart Rate: 153 bpm Amniotic Fluid Volume: normal DOPPLER Umbilical - Mid Cord S/D 2.79(1.94 - 4.06) PI 1.03 (0.69 - 1.28) Anatomy!Normal!Abnormal!Suboptimal!Prev. Seen!Comments Cranium ! x ! ! ! ! Mdl (CSP/Thal! x ! ! ! ! Ventricles ! x ! ! ! ! Choroid Plexu! x ! ! ! ! Cerebellum ! ! ! x ! ! Cisterna M. ! ! ! x ! ! Orbits ! x ! ! ! ! Profile ! x ! ! ! ! Nasal Bone ! x ! ! ! ! Lip ! x ! ! ! ! Spine ! ! ! x ! ! Lungs ! x ! ! ! ! 4 Chamber Hea! x ! ! ! ! LVOT ! x ! ! ! ! RVOT ! x ! ! ! ! 3 Vessel View! x ! ! ! ! 3 Vessel Trac! x ! ! ! ! Cross-over ! x ! ! ! ! Ductal Arch ! x ! ! ! ! Aortic Arch ! x ! ! ! ! Caval View ! x ! ! ! ! Situs ! x ! ! ! ! Diaphragm ! x ! ! ! ! Stomach ! x ! ! ! ! Bowel ! x ! ! ! ! Kidneys ! x ! ! ! ! Bladder ! x ! ! ! ! 3 Vessel Cord! x ! ! ! ! Cord In! x ! ! ! ! Upper Extremi! x ! ! ! ! Hands ! x ! ! ! ! Lower Extremi! x ! ! ! ! Feet ! x ! ! ! ! External Rosi! x ! ! ! !Male Placental Cor! x ! ! ! ! CLINICAL SUMMARY * Juárez IUP at 30 weeks by stated EDC * Referred to [facility] for obstetrical U/S and consultation secondary to: - Gestational diabetes mellitus A1 - Hypothyroidism - Prior IUGR - Advanced maternal age (AMA) * Today's ultrasound (U/S) findings: - Living juárez intrauterine fetus - growth @ 9th%, with normal-range AC - Amniotic fluid volume subjectively appears normal - Placental structure & location appear normal - Comprehensive anatomic survey appears normal, but suboptimal - The biophysical profile (BPP) is normal (06/04) - Umbilical artery (UA) Dopplers show normal end-diastolic blood flow (EDBF) RECOMMENDATIONS & COUNSELING * Relevant past medical & obstetrical history: - Medications: vitamins, levothyroxine 125 ug/day - Past Medical History: no DM, no CHTN - Maternal obesity Class I (BMI 30.0-34.9) - Rheumatoid arthritis, on no medication - Past Obstetrical History: #1-5) @ term all 5# to 7# #6) C/S @ 39 weeks 4#9oz #7) Current - Advanced maternal age (AMA) 41 years - She declined genetic screening & diagnostic testing - Past Surgical History: cholecystectomy & EMB * Hypothyroidism in may be associated with adverse outcomes: - Early loss, preeclampsia, placental abruption - Low weight (sometimes a result of PTD for preeclampsia), mortality - Neuropsychological impairment (with subclinical & uncontrolled hypothyroidism) * Given the importance of maternal euthyroidism for normal cognitive development: - 1 provider (e.g. OB, MFM, FP, IM, Fruit Thinner) should primarily manage replacement Rx - Please advise if primary management by MFM of hypothyroidism is desired * The TSH level is used to monitor treatment of overt hypothyroidism - Anticipate a 25% increase in T4 replacement requirement - In levothyroxine is medication of choice - Keep TSH between lower limit of reference range & 2.5 mU/L - Monitor TSH every 4-6 weeks while adjusting medications - Her TSH on 06/11/2022 was 0.35 (normal = 0.30 - 5.33 IU/mL) * Diabetes mellitus, gestational - The 50-gram 1-hour = 173 mg/dL - The 100-gram 3-hour = [phone] - Recent capillary blood glucose (CBG) control has been good - We discussed the importance of euglycemia - She is advised to measure & record capillary blood glucose (CBG) values each day - We advise CBGs be taken fasting & post-prandial (pC) - The pC CBG is regularly checked at either 1 or 2 hours after starting the meal - The goal is to maintain CBG values as close to normal as possible - ACOG goals for CBG: fasting < 95, aC < 95, 1-hr pC < 140 or 2-hr pC < 120 mg/dL - [facility] goals for CBG: fasting 60-90, aC 60-105, 1-hr pC < 130 or 2-hr pC < 120 mg/dL - There should be 1 primary provider to manage glycemic control - If you desire MFM to take responsibility, please refer her back in 1 week with CBG log - Please also refer to the separate Diabetic/Clearance Rep consultation report of today * Supplementary assessment to consider in her case: - Follow-up U/S with MFM for growth & UA Dopplers in 3 weeks - Start 1X-weekly antepartum testing (NST+ABBY or BPP) now - As the AC is >10th% & she has to remove child from school to see MFM, can wait 3 weeks for Dopplers * At this point it is too early to recommend delivery timing or mode * Regarding post- surveillance, per the the 2018 ACOG Practice Bulletin #190: - Up to one third of women with GDM have T2DM or other abnormality - It is estimated 15-70% of women with GDM will develop T2DM over time - DM screening @ 4 1 2 weeks is advised for all women who had GDM - Testing is via a fasting plasma glucose & 75-gram 2-hour OGTT - The ADA & ACOG recommend repeat testing every 1 3 years if normal * Diet, exercise & weight control may prevent later development of Type II DM * The incidence of GDM is increased in future pregnancies after previous GDM - The incidence of GDM in next after GDM approaches 50% - In future pregnancies, screen for GDM early and if negative, repeat at 24-28 weeks COMMENTS * Findings were explained & questions were addressed & precautions were given * She was counseled that U/S may not detect all maternal- abnormalities * Thank you very much for requesting MFM participation in her obstetrical care * Consult exclusive of procedures was 45 minutes [id number] with the patient, over half in discussion of the diagnosis & treatment plan, with the assistance of a roads and parking lots sweeper operator Ced De Paz MD <Electronic Signature> 06/27/2022 04:40pm Leslie Kaur MD MFM ORDERABLES * (ABNORMAL) CYCLIC CITRUL PEPTIDE ANTIBODY IGG/IGA ([facility]) (12/04/2021 2:11 PM PSYCHIATRY TEACHER) CCP Antibodies IgG/IgA 30(H) 0 - 19 units [facility] INSURANCE BILL Comment: Negative <20 Weak positive 20 - 39 Moderate positive 40 - 59 Strong positive >59 Blood BLOOD SPECIMEN / Unknown 12/04/2021 2:11 PM PSYCHIATRY TEACHER 12/04/2021 Narrative Resulting Agency Comment Lab Testing performed at: [facility] [id number] Abdirahman Mendez DO LAB - SEROLOGY ORDER MADYSON Performing Organization Address City/[facility]/ZIP Co de Phone Number [facility] INSURANCE BILL [address] [place] [address] * HEPATITIS C ANTIBODY (12/04/2021 2:11 PM PSYCHIATRY TEACHER) Hepatitis C Antibody <0.1 0.0 - 0.9 s/co ratio [facility] INSURANCE BILL Comment: Negative: < 0.8 Indeterminate: 0.8 - 0.9 Positive: > 0.9 . The CDC recommends that a positive HCV antibody result be followed up with a HCV Nucleic Acid Amplification test (811405). Blood BLOOD SPECIMEN / Unknown 12/04/2021 2:11 PM PSYCHIATRY TEACHER 12/04/2021 Narrative Resulting Agency Comment Lab Testing performed at: [facility] [address] [facility] [facility] [id number] Abdirahman Mendez DO LAB - CHEMISTRY ORDE RABLES Performing Organization Address City/[facility]/ZIP Co de Phone Number [facility] INSURANCE BILL [address] [place] [address] Care Teams Cut Roll Machine Offbearer Relationship Specialty Start Date End Date Fabricio Guadarrama MD [address] [place] [id number] PCP - General Family Medicine 12/04/21
--- OUTSIDE RECORDS SUMMARY | 2025-01-10 09:17 | XMS_ITS | Referral Summary ---
Author Organization [facility] Address [address] [place] [address] Care Team Providers Care Handle Machine Operator Name Role Phone Fabricio Guadarrama MD Primary Care Provider [phone] Source Comments [facility],non-owned Affiliates and Associated Physician Practices is amultiple site organization consisting of ambulatory clinics and hospital sitesin [place], [place], [place] and [place]. This disclosure is being madepursuant to the Care Everywhere program and may not contain all information available regarding this patient. Last updated 18.[facility] Encounters Date Type Department Care Team Description 10/13/2024 2:10 PM NONDESTRUCTIVE TESTER Clinical Support [facility] - Ophthalmology [address] [place] [phone] Willian Casanova, OD Irregular astigmatism of both eyes (Primary Dx) 10/13/2024 Travel 10/13/2024 1:30 PM NONDESTRUCTIVE TESTER Office Visit [facility] - Ophthalmology [address] [place] [phone] Willian Casanova, OD Irregular astigmatism of both eyes (Primary Dx) from Last 3 Months Allergies No known active allergies Medications * [...] remission. Assessment & Plan (12/04/2021 2:00 PM NONDESTRUCTIVE TESTER): Prior symptoms suggesting a inflammatory arthritis including early RA 12 years ago (no treatment) and now seems to be in spontaneous remission. The finding of a positive rheumatoid factor of undetermined clinical significance without current history, examination findings, and/or additional available laboratory results for review, regarding this finding being consistent with the specific diagnosis of rheumatoid arthritis by [place] [employer] classification criteria nor seems [...] the event of recurrent arthritis symptoms including material damage adjuster stiffness, swelling and/or joint pain. Social History Tobacco Use Types Packs/Day Years [...] 36.1 C (97 F) 12/04/2021 1:26 PM NONDESTRUCTIVE TESTER Respiratory Rate 16 12/04/2021 1:26 PM NONDESTRUCTIVE TESTER Oxygen Saturation 99% 06/27/2022 2:49 PM CDT Inhaled Oxygen Concentration - - Weight 84.1 kg (185 lb 6.4 oz) 06/27/2022 3:48 P M CDT Height 165.1 cm (5' 5 ) 06/27/2022 3:48 PM CDT Body Mass Index 30.85 06/27/2022 3:48 PM CDT Plan of Treatment Not on file Procedures Procedure Name Priority Date/Time Associated Diagnosis Comments CORNEAL TOPOGRAPHY UNI/BI Routine 10/13/2024 2:07 PM NONDESTRUCTIVE TESTER Irregular astigmatism of both eyes HEPATITIS C ANTIBODY Routine 12/04/2021 2:11 PM NONDESTRUCTIVE TESTER Rheumatoid factor positive from Last 3 Months or Most Recently Relevant to Health Maintenance Results * CORNEAL TOPOGRAPHY UNI/BI (10/13/2024 2:07 PM NONDESTRUCTIVE TESTER) Anatomical Region Laterality Modality Head External-Camera Photography Narrative 10/13/2024 2:21 PM NONDESTRUCTIVE TESTER Images from the original result were not included. OD: high amounts of WTR astigmatism, no concerns for keratoconus OS: high amounts of WTR astigmatism, no concerns for keratoconus Willian Casanova OD OPHTHALMOLOGY SCHED ORD W PACS * HEPATITIS C ANTIBODY (12/04/2021 2:11 PM NONDESTRUCTIVE TESTER) Hepatitis C Antibody <0.1 0.0 - 0.9 s/co ratio [facility] INSURANCE BILL Comment: Negative: < 0.8 Indeterminate: 0.8 - 0.9 Positive: > 0.9 . The CDC recommends that a positive HCV antibody result be followed up with a HCV Nucleic Acid Amplification test (336204). Blood BLOOD SPECIMEN / Unknown 12/04/2021 2:11 PM NONDESTRUCTIVE TESTER 12/04/2021 Narrative Resulting Agency Comment [facility]: [facility] [address] [facility] [id number] Abdirahman Mendez DO LAB - CHEMISTRY YARELI BALBUENA [facility] INSURANCE BILL [address] [place] [address] from Last 3 Months or Most Recently Relevant to Health Maintenance Care Teams Handle Machine Operator Relationship Specialty Start Date End Date Fabricio Guadarrama MD [address] [facility] [address] [place] [address] PCP - General Family Medicine 12/04/21
[2025-01-10 09:24] VITALS: BP 130/87; PULSE 117; RESP 21; TEMP 37.7; O2SAT 100
[2025-01-10 09:33] VITALS: O2SAT 100
[2025-01-10 09:34] VITALS: BP 120/87; PULSE 128; RESP 20; O2SAT 100
--- NOTE | 2025-01-10 10:07 | ED.URI ---
HPI - URI/Sore Throat General Chief Complaint: Upper Respiratory Infection Stated Complaint: chills, fever, KENNEDY Time Seen by Provider: 01/10/25 10:04 Source: patient and family Mode of arrival: ambulatory Limitations: no limitations History of Present Illness HPI Narrative: TYPE [age] YEARS OLD FEMALE CAME TO THE ED WITH FLU-LIKE SYMPTOMS LIKE FEVER, CHILLS, HEADACHE, COUGHING, BODY ACHES. PATIENT REPORT 3 OF HER KIDS HAVING SIMILAR SYMPTOMS AND TESTED POSITIVE FOR THE FLU PATIENT IS TELLING ME SHE HAD SIMILAR SYMPTOM IN THE PAST SECONDARY TO PNEUMONIA Related Data Home Medications ?Medication ?Instructions ?Recorded ?Confirmed ?Last Taken ?Type levothyroxine 125 mcg tablet 112 mcg PO DAILY 08/21/22 01/10/25 08/20/22 06:00 History Allergies Allergy/AdvReac Type Severity Reaction Status Date / Time No Known Allergies Allergy Verified 01/10/25 09:29 Review of Systems Review of Systems: All systems reviewed & are unremarkable except as noted in HPI and below PMFSH Past Medical History Medical History Overweight Hypothyroidism Social History Social History Smoking status: Never smoker Second hand tobacco smoke exposure: No Alcohol intake: never Substance use: never Substance use type: does not use Lack of Transportation: No Lack of Food: Never True Current Housing: I Have Housing Concerned About Future Housing: No Difficulty Paying Gas/Electric Bills: No Difficulty Paying for Meds: No Currently Unemployed: No Education: High School Diploma/GED Difficulty w/ Childcare or Family Care: No Living arrangements: with family Spiritual care concerns: No Exam Narrative: GENERAL APPEARANCE: WELL-DEVELOPED, WELL-NOURISHED DOES NOT LOOK IN PAIN OR DISTRESS SKIN: NORMAL COLOR HEAD: NORMOCEPHALIC, NONTRAUMATIC EYES: CLEAR CONJUNCTIVA ENT: OROPHARYNX ERYTHEMA NECK: SUPPLE, NONTENDER CHEST AND RESPIRATORY: AIRWAY PATENT, NO RESPIRATORY DISTRESS, NO ACCESSORY MUSCLE USE HEART: REGULAR RATE/RHYTHM ABDOMEN: SOFT, NONTENDER, NO ORGANOMEGALY, QUIET BOWEL SOUNDS VASCULAR: NORMAL PERIPHERAL PULSES, NORMAL CAPILLARY REFILL. 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 IS NORMAL TESTED, NO GROSS MOTOR DEFICIT Course Vital Signs Vital signs: Vital Signs Temperature 37.7 C H 01/10/25 09:24 Pulse Rate 117 H 01/10/25 09:24 Respiratory Rate 21 H 01/10/25 09:24 Blood Pressure 130/87 01/10/25 09:24 Pulse Oximetry 100 01/10/25 09:24 Oxygen Delivery Room Air 01/10/25 09:24 Temperature 37.7 C H 01/10/25 09:24 Pulse Rate 128 H 01/10/25 09:34 Respiratory Rate 20 01/10/25 09:34 Blood Pressure 120/87 01/10/25 09:34 Pulse Oximetry 100 01/10/25 09:34 Oxygen Delivery Room Air 01/10/25 09:33 MDM - URI/Sore Throat MDM Narrative Medical decision making narrative: PATIENT PRESENTS WITH FLU-LIKE SYMPTOMS, VITAL SIGNS SHOWING HEART RATE OF 117, TEMPERATURE 37.7?, RESPIRATION 21 PER MINUTE, OXYGENATION 100% ON ROOM AIR PHYSICAL EXAMINATION SHOWING FEI PHARYNGEAL ERYTHEMA OTHERWISE INSIGNIFICANT PATIENT TESTED NEGATIVE FOR COVID, FLU AND RSV WHICH COULD BE SO EARLY THAT IS WHY THE TEST CAME BACK NEGATIVE. MY PLAN TO TREAT THE PATIENT HAVING POSITIVE TEST. HER KIDS TESTED POSITIVE FOR THE FLU. CHEST X-RAY SHOWED NO ACUTE ABNORMALITIES Differential Diagnosis Differential diagnosis: Likely other ( ABOVE) Medical Records Attestation: I reviewed the patient's medical records. Lab Data Attestation: I reviewed the patient's lab results. Labs: Lab Results 01/10/25 Range/Units 10:13 Influenza A (RT-PCR) Negative (Negative) Influenza B (RT-PCR) Negative (Negative) RSV (RT-PCR) Negative (Negative) SARS-CoV-2 RNA (RT-PCR) Negative (Negative) Imaging Data My impression: Impressions Chest X-Ray 01/10/25 11:32 IMPRESSION: No acute cardiopulmonary pathology. Radiologist's impression: CHEST X-RAY SHOWED NO ACUTE ABNORMALITIES Critical Care Time Critical Care Time Critical Care Time: No Discharge Plan Discharge Clinical Impression: Upper respiratory infection, viral Patient Disposition: Home, Self-Care Condition: Stable Instructions: Upper Respiratory Infection (ED) Additional Instructions: RETURN IF SYMPTOMS ARE WORSENING , CALL YOUR FAMILY PHYSICIAN FOR APPOINTMENT, TAKE TYLENOL, IBUPROFEN NEEDED FOR ACHES AND PAIN, CONTINUE HOME MEDICATIONS. Patient Language: Sammarinese Prescriptions: New oseltamivir [Tamiflu] 75 mg capsule 75 mg PO BID Qty: 10 0RF No Action levothyroxine 125 mcg tablet 112 mcg PO DAILY Follow-up/Referrals: Fabricio Guadarrama MD [Primary Care Provider] -
--- OUTSIDE RECORDS SUMMARY | 2025-01-10 10:12 | XMS_ITS | Referral Summary ---
Author Organization [facility] Address [address] [place] [address] Care Team Providers Care Physiology Teacher Name Role Phone Fabricio Guadarrama MD Primary Care Provider [phone] Source Comments [facility],non-owned Affiliates and Associated Physician Practices is amultiple site organization consisting of ambulatory clinics and hospital sitesin [place], [place], [place]. This disclosure is being madepursuant to the Care Everywhere program and may not contain all information available regarding this patient. Last updated 18.[facility] Encounters Date Type Department Care Team Description 10/13/2024 2:10 PM PSYCH NP Clinical Support [facility] - Ophthalmology [address] [place] [phone] Willian Casanova, OD Irregular astigmatism of both eyes (Primary Dx) 10/13/2024 Travel 10/13/2024 1:30 PM PSYCH NP Office Visit [facility] - Ophthalmology [address] [place] [phone] Willian Casanova, OD Irregular astigmatism of both [...] remission. Assessment & Plan (12/04/2021 2:00 PM PSYCH NP): Prior symptoms suggesting a inflammatory arthritis including early RA 12 years ago (no treatment) and now seems to be in spontaneous remission. The finding of a positive rheumatoid factor of undetermined clinical significance without current history, examination findings, and/or additional available laboratory results for review, regarding this finding being consistent with the specific diagnosis of rheumatoid arthritis by [place] [employer] Rheumat[employer] classification criteria nor seems [...] the event of recurrent arthritis symptoms including blind lacer stiffness, swelling and/or joint pain. Social History [...] 36.1 C (97 F) 12/04/2021 1:26 PM PSYCH NP Respiratory Rate 16 12/04/2021 1:26 PM PSYCH NP Oxygen Saturation 99% 06/27/2022 2:49 PM CDT Inhaled Oxygen Concentration - - Weight 84.1 kg (185 lb 6.4 oz) 06/27/2022 3:48 P M CDT Height 165.1 cm (5' 5 ) 06/27/2022 3:48 PM CDT Body Mass Index 30.85 06/27/2022 3:48 PM CDT Plan of Treatment Not on file Procedures Procedure Name Priority Date/Time Associated Diagnosis Comments CORNEAL TOPOGRAPHY UNI/BI Routine 10/13/2024 2:07 PM PSYCH NP Irregular astigmatism of both eyes HEPATITIS C ANTIBODY Routine 12/04/2021 2:11 PM PSYCH NP Rheumatoid factor positive from Last 3 Months or Most Recently Relevant to Health Maintenance Results * CORNEAL TOPOGRAPHY UNI/BI (10/13/2024 2:07 PM PSYCH NP) Anatomical Region Laterality Modality Head External-Camera Photography Narrative 10/13/2024 2:21 PM PSYCH NP Images from the original result were not included. OD: high amounts of WTR astigmatism, no concerns for keratoconus OS: high amounts of WTR astigmatism, no concerns for keratoconus Willian Casanova OD OPHTHALMOLOGY SCHED ORD W PACS * HEPATITIS C ANTIBODY (12/04/2021 2:11 PM PSYCH NP) Hepatitis C Antibody <0.1 0.0 - 0.9 s/co ratio [facility] INSURANCE BILL Comment: Negative: < 0.8 Indeterminate: 0.8 - 0.9 Positive: > 0.9 . The CDC recommends that a positive HCV antibody result be followed up with a HCV Nucleic Acid Amplification test (010532). Blood BLOOD SPECIMEN / Unknown 12/04/2021 2:11 PM PSYCH NP 12/04/2021 Narrative Resulting Agency Comment [facility] performed at: [facility] [address] [facility] [phone] Abdirahman Mendez DO LAB - CHEMISTRY YARELI BALBUENA [facility] INSURANCE BILL [address] [place] [address] from Last 3 Months or Most Recently Relevant to Health Maintenance Care Teams Physiology Teacher Relationship Specialty Start Date End Date Fabricio Guadarrama MD [address] [facility] [address] [place] [address] PCP - General Family Medicine 12/04/21
--- OUTSIDE RECORDS SUMMARY | 2025-01-10 10:12 | XMS_ITS | Patient Health Summary ---
Author Organization [facility] Address [address] [place] [address] Care Team Providers Care Medical Pathology Teacher Name Role Phone Fabricio Guadarrama MD Primary Care Provider [phone] Note from [facility],non-owned Affiliates and Associated Physician Practices is amultiple site organization consisting of ambulatory clinics and hospital sitesin [place], [place], [place] and [place]. This disclosure is being madepursuant to the Care Everywhere program and may not contain all information available regarding this patient. Last updated 18.[facility] Allergies No known active allergies Medications * [...] 36.1 C (97 F) 12/04/2021 1:26 PM CARDIOLOGY TEACHER Respiratory Rate 16 12/04/2021 1:26 PM CARDIOLOGY TEACHER Oxygen Saturation 99% 06/27/2022 2:49 PM [...] multigravida of advanced maternal age ([facility]), Diet controlled gestational diabetes mellitus (GDM) in third trimester ([facility]), Hypothyroid in , antepartum ([facility]), Previous baby with growth restriction, 30 weeks gestation of ([facility]), Encounter for ultrasound to assess growth ([facility]) * CYCLIC CITRUL PEPTIDE ANTIBODY IGG/IGA ([facility])(Performed 12/04/2021) Performed for Rheumatoid factor positive * HEPATITIS C ANTIBODY(Performed 12/04/2021) Performed for Rheumatoid factor positive Results * CORNEAL TOPOGRAPHY UNI/BI (10/13/2024 2:07 PM CARDIOLOGY TEACHER) Anatomical Region Laterality Modality Head External-Camera Photography Narrative 10/13/2024 2:21 PM CARDIOLOGY TEACHER Images from the original result were [...] & Care Center PHONE: FAX: Pat. Name: BONG ROSALES Pat. No: [id number] Study Date: 06/27/2022 2:05pm , Age: 12 1980, 41 Pregnancies: 7, Para 6 Height: 65 in Weight: 177 lb LMP: 11/27/2021 GA by LMP: 30w2d GA by US: 28w6d JAYMIE: 09/13/2022 GA Selected: 30w2d (LMP) JAYMIE: 09/03/2022 Referring MD: Leslie Kaur MD Minesweeping Officer: Janet Whitman RDMS CPT4: 52488,[id number] BMI: 29.45 Hist/Ind: Hypothyroidism AMA G6: SGA and GDM MEASUREMENTS & AGE GROWTH EVALUATION Measurement GA Range Srce %for GA Ratios ----- ---- ------- BPD 7.0 cm 28w2d (78g5y-63w0x) Hadl BPD 1% FL/BPD 0.75 (0.71 - 0.87) HC 26.9 cm 29w2d (20g1v-47y6a) Hadl HC 3% FL/AC 0.21 (0.20 - 0.24) AC 25.6 cm 29w6d (58j7i-24e3b) Hadl AC 30% HC/AC 1.05 (0.97 - 1.16) FL 5.3 cm 28w0d (65o8n-42q5k) Hadl FL 1% CI 0.72 (0.70 - 0.86) HL 4.9 cm 28w6d (22l4h-65l1k) Andrea HL 27% GA for sonogram 28w6d (64u7t-74d0h) Weight Estimate: based on (BPD,HC,AC,FL) Avg Weight: [...] weeks by stated EDC * Referred to [facility] for obstetrical U/S and consultation secondary [...] 1 provider (e.g. OB, MFM, FP, IM, Technical Report Writer) should primarily manage replacement Rx - Please [...] 173 mg/dL - The 100-gram 3-hour = [phone] - Recent capillary blood glucose (CBG) control [...] or 2-hr pC < 120 mg/dL - [facility] goals for CBG: fasting 60-90, aC 60-105, 1-hr pC < 130 or 2-hr pC < 120 mg/dL - There should be 1 primary provider to manage glycemic control - If you desire MFM to take responsibility, please refer her back in 1 week with CBG log - Please also refer to the separate Diabetic/Ribbon Sweatband Operator consultation report of today * Supplementary assessment [...] Consult exclusive of procedures was 45 minutes [id number]-eubi with the patient, over half in discussion of the diagnosis & treatment plan, with the assistance of a neonatal critical care nurse Ced De Paz MD <Electronic Signature> 06/27/2022 04:40pm Leslie Kaur MD MFM ORDERABLES * (ABNORMAL) CYCLIC CITRUL PEPTIDE ANTIBODY IGG/IGA (CCP) (12/04/2021 2:11 PM CARDIOLOGY TEACHER) CCP Antibodies IgG/IgA 30(H) 0 - 19 units [facility] INSURANCE BILL Comment: Negative <20 Weak positive 20 - 39 Moderate positive 40 - 59 Strong positive >59 Blood BLOOD SPECIMEN / Unknown 12/04/2021 2:11 PM CARDIOLOGY TEACHER 12/04/2021 Narrative Resulting Agency Comment Lab Testing performed at: [facility] [id number] Abdirahman Mendez DO LAB - SEROLOGY ORDER MADYSON Performing Organization Address City/[facility]/ZIP Co de Phone Number [facility] INSURANCE BILL [address] [place] [address] * HEPATITIS C ANTIBODY (12/04/2021 2:11 PM CARDIOLOGY TEACHER) Hepatitis C Antibody <0.1 0.0 - 0.9 s/co ratio [facility] INSURANCE BILL Comment: Negative: < 0.8 Indeterminate: 0.8 - 0.9 Positive: > 0.9 . The CDC recommends that a positive HCV antibody result be followed up with a HCV Nucleic Acid Amplification test (346504). Blood BLOOD SPECIMEN / Unknown 12/04/2021 2:11 PM CARDIOLOGY TEACHER 12/04/2021 Narrative Resulting Agency Comment Lab Testing performed at: [facility] [address] [facility] [phone] Abdirahman Mendez DO LAB - CHEMISTRY ORDE RABLES Performing Organization Address City/[facility]/ZIP Co de Phone Number [facility] INSURANCE BILL [address] [place] [address] Care Teams Medical Pathology Teacher Relationship Specialty Start Date End Date Fabricio Guadarrama MD [address] [place] [address] PCP - General Family Medicine 12/04/21
--- OUTSIDE RECORDS SUMMARY | 2025-01-10 10:12 | XMS_ITS | Clinical Summary ---
Author Organization [facility] Address [address] [place] [address] Care Team Providers Care Emergency Operator Name Role Phone Fabricio Guadarrama MD Primary Care Provider [phone] Source Comments [facility],non-owned Affiliates and Associated Physician Practices is amultiple site organization consisting of ambulatory clinics and hospital sitesin [place], [place], [place] and [place]. This disclosure is being madepursuant to the Care Everywhere program and may not contain all information available regarding this patient. Last updated 18.[facility] Allergies No known active allergies Medications * [...] remission. Assessment & Plan (12/04/2021 2:00 PM HUMAN RESOURCES PROFESSIONAL): Prior symptoms suggesting a inflammatory arthritis including early RA 12 years ago (no treatment) and now seems to be in spontaneous remission. The finding of a positive rheumatoid factor of undetermined clinical significance without current history, examination findings, and/or additional available laboratory results for review, regarding this finding being consistent with the specific diagnosis of rheumatoid arthritis by [place] [employer] classification criteria nor seems [...] the event of recurrent arthritis symptoms including awning finisher stiffness, swelling and/or joint pain. Encounters Date Type Department Care Team Description 10/13/2024 2:10 PM HUMAN RESOURCES PROFESSIONAL Clinical Support [facility] - Ophthalmology [address] [place] [phone] Willian Casanova, OD Irregular astigmatism of both eyes (Primary Dx) 10/13/2024 1:30 PM HUMAN RESOURCES PROFESSIONAL Office Visit [facility] - Ophthalmology [address] [place] [phone] Willian Casanova, OD Irregular astigmatism of both [...] 36.1 C (97 F) 12/04/2021 1:26 PM HUMAN RESOURCES PROFESSIONAL Respiratory Rate 16 12/04/2021 1:26 PM HUMAN RESOURCES PROFESSIONAL Oxygen Saturation 99% 06/27/2022 2:49 PM CDT [...] CORNEAL TOPOGRAPHY UNI/BI Routine 10/13/2024 2:07 PM HUMAN RESOURCES PROFESSIONAL Irregular astigmatism of both eyes HEPATITIS C ANTIBODY Routine 12/04/2021 2:11 PM HUMAN RESOURCES PROFESSIONAL Rheumatoid factor positive from Last 3 Months or Most Recently Relevant to Health Maintenance Results * CORNEAL TOPOGRAPHY UNI/BI (10/13/2024 2:07 PM HUMAN RESOURCES PROFESSIONAL) Anatomical Region Laterality Modality Head External-Camera Photography Narrative 10/13/2024 2:21 PM HUMAN RESOURCES PROFESSIONAL Images from the original result were not included. OD: high amounts of WTR astigmatism, no concerns for keratoconus OS: high amounts of WTR astigmatism, no concerns for keratoconus Willian Casanova OD OPHTHALMOLOGY SCHED ORD W PACS * HEPATITIS C ANTIBODY (12/04/2021 2:11 PM HUMAN RESOURCES PROFESSIONAL) Hepatitis C Antibody <0.1 0.0 - 0.9 s/co ratio [facility] INSURANCE BILL Comment: Negative: < 0.8 Indeterminate: 0.8 - 0.9 Positive: > 0.9 . The CDC recommends that a positive HCV antibody result be followed up with a HCV Nucleic Acid Amplification test (357404). Blood BLOOD SPECIMEN / Unknown 12/04/2021 2:11 PM HUMAN RESOURCES PROFESSIONAL 12/04/2021 Narrative Resulting Agency Comment [facility]: [facility] [address] [facility] [phone] Abdirahman Mendez DO LAB - CHEMISTRY YARELI BALBUENA [facility] INSURANCE BILL [address] [place] [address] from Last 3 Months or Most Recently Relevant to Health Maintenance Care Teams Emergency Operator Relationship Specialty Start Date End Date Fabricio Guadarrama MD [address] [facility] [address] [place] [address] PCP - General Family Medicine 12/04/21
[2025-01-10] MEDS: ACETAMINOPHEN 325 MG TABLET 650 MG PO (10:16)
[2025-01-10] MEDS: IBUPROFEN 600 MG TABLET PO (10:16)
[2025-01-10 10:53] LABS: Influenza A QL RT-PCR Negative (Negative); Influenza B QL RT-PCR Negative (Negative); RSV RNA, RT-PCR Negative (Negative); SARS-CoV-2 RNA PCR Negative (Negative)
[2025-01-10 12:17] VITALS: BP 111/71; PULSE 107; RESP 18; O2SAT 98
== END 2025-01-10 12:19 | disposition home or self-care (01) ==
PROVIDERS: Emergency Provider Emergency Medicine; PCP Emergency Medicine
DX: J06.9 Acute upper respiratory infection, unspecified (principal); Z20.822 Contact with and (suspected) exposure to COVID-19; E03.9 Hypothyroidism, unspecified; E66.3 Overweight; Z68.29 Body mass index [BMI] 29.0-29.9, adult
CPT/HCPCS: 71045; 87637; 99283; A9270

== ENCOUNTER 2025-09-07 08:28 | Emergency (ER) | payer OTHER, SELFPAY ==
--- NOTE | 2025-09-07 08:33 | ED_ITS ---
HPI - Recheck/Abnormal Lab/Rx General Chief Complaint: Unspecified Stated Complaint: Medicine Refills Time Seen by Provider: 09/07/25 08:32 Source: patient Mode of arrival: ambulatory Limitations: no limitations History of Present Illness HPI narrative: Debbie is a 44 year old female patient presenting to the clinic today requesting medication refills on levothyroxine 112mcg po daily , ferrous sulfate 324mg po daily, pravastatin 40mg po daily, and fenofibrate 145mg po daily. States that she has switched providers and she does not have an appointment until December 20 2025. Contacted the new PCP and they told her to come to the [facility] for medication refills. She denies any other concerns. Feels well managed on these medications. Related Data Home Medications ?Medication ?Instructions ?Recorded ?Confirmed ?Last Taken ?Type levothyroxine 125 mcg tablet 112 mcg PO DAILY 08/21/22 01/10/25 08/20/22 06:00 History Allergies Allergy/AdvReac Type Severity Reaction Status Date / Time No Known Allergies Allergy Verified 09/07/25 08:52 Review of Systems Review of Systems: Pertinent positives per HPI. Patient denies any fever, chills, rash, headache, visual changes, dizziness, cough, runny nose, sore throat, shortness of breath, chest pain, palpitations, nausea, vomiting, diarrhea, constipation, abdominal pain, or any urinary issues. PMFSH Past Medical History Medical History Overweight Hypothyroidism Social History Social History Second hand tobacco smoke exposure: No Alcohol intake: never Substance use: never Substance use type: does not use Lack of Transportation: No Lack of Food: Never True Current Housing: I Have Housing Concerned About Future Housing: No Difficulty Paying Gas/Electric Bills: No Difficulty Paying for Meds: No Currently Unemployed: No Education: High School Diploma/GED Difficulty w/ Childcare or Family Care: No Living arrangements: with family Spiritual care concerns: No Comments At the time of my signature, I reviewed and agree with the nursing past medical, surgical, social, and family history. There is no relevant family history pertinent to the patient complaint. Exam Narrative: General: Well-developed, well nourished, in no apparent distress Head: Normocephalic, atraumatic Eyes: Pupils equally round and reactive to light bilaterally, EOM intact, sclera and conjunctive clear, no discharge, lids normal Ears: TMs intact and clear, ear canals clear, no drainage, grossly hearing normal. Nose: Nares patent, no discharge, no inflammation, no sinus tenderness. Mouth: Oropharynx without lesions or masses, good dentition, MMM. Neck: Supple, trachea midline, no enlargement of anterior or posterior cervical nodes, no thyroid masses or goiter palpable. Cardio: Regular rate and rhythm, s1 and s2 normal, no murmur appreciated. Resp: Clear to auscultation bilaterally anteriorly and posteriorly, no rhonchi, rales, wheezing or rubs Course Course Emergency Course: Portions of this record may have been created with voice recognition software. Level of Care: Express Care Visit Vital Signs Vital signs: Vital Signs Temperature 36.6 C 09/07/25 08:39 Pulse Rate 81 09/07/25 08:39 Respiratory Rate 16 09/07/25 08:39 Blood Pressure 153/83 H 09/07/25 08:39 Pulse Oximetry 99 09/07/25 08:39 Oxygen Delivery Room Air 09/07/25 08:39 Temperature 36.6 C 09/07/25 08:39 Pulse Rate 81 09/07/25 08:39 Respiratory Rate 16 09/07/25 08:39 Blood Pressure 153/83 H 09/07/25 08:39 Pulse Oximetry 99 09/07/25 08:39 Oxygen Delivery Room Air 09/07/25 08:39 Vital signs reviewed MDM - Recheck/Abnormal Lab/Rx MDM Narrative Medical decision making narrative: At the time of visit patient is resting comfortably on the exam table. Patient appears to be nontoxic. requesting medication refills on levothyroxine 112mcg po daily, ferrous sulfate 324mg po daily, pravastatin 40mg po daily, and fenofibrate 145mg po daily. States that she has switched providers and she does not have an appointment until December 20 2025. Contacted the new PCP and they told her to come to the [facility] for medication refills. She denies any other concerns. Feels well managed on these medications. Patient has normal exam. Plan: Patient here for medication refill. Above medications were field and 3 refills were sent to the pharmacy to cover the patient until she is seen by her new primary care doctor. Supportive measures were discussed with the patient and they voiced understanding discharge instructions and agrees to treatment plan. Return precautions reviewed Differential Diagnosis Differential diagnosis: Likely encounter for medication refill Discharge Plan Discharge Clinical Impression: Medication refill Patient Disposition: Home Condition: Stable Instructions: Antibiotic Form, Medicine Refill (ED) Additional Instructions: Take medications as prescribed Follow-up with your primary care doctor as scheduled. [place] los medicamentos seg?n lo prescrito. Acuda a las citas de seguimiento con espinal m?dico de cabecera seg?n lo programado. Patient Language: Armenian Prescriptions: New levothyroxine 112 mcg capsule 112 mcg PO DAILY 30 Days Qty: 30 3RF pravastatin 40 mg tablet 40 mg PO DAILY 30 Days Qty: 30 3RF ferrous sulfate 324 mg (65 mg iron) tablet,delayed release (DR/EC) 324 mg PO BID 30 Days Qty: 60 3RF fenofibrate nanocrystallized 145 mg tablet 145 mg PO DAILY 30 Days Qty: 30 3RF No Action levothyroxine 125 mcg tablet 112 mcg PO DAILY oseltamivir [Tamiflu] 75 mg capsule 75 mg PO BID Qty: 10 0RF Follow-up/Referrals: UNKNOWN,DOCTOR [Non-Staff] Time of Disposition: 09:05 Quality NIHSS Nursing Documentation ED NIHSS nursing documentation: reviewed/agree
[2025-09-07 08:39] VITALS: BP 153/83; PULSE 81; RESP 16; TEMP 36.6; O2SAT 99
== END 2025-09-07 09:20 | disposition home or self-care (01) ==
PROVIDERS: Emergency Provider Nurse Practitioner Family
DX: Z76.0 Encounter for issue of repeat prescription (principal); E03.9 Hypothyroidism, unspecified
CPT/HCPCS: 99211; 99213; G0463